=== PATIENT | female | born 2005 | race Caucasian/White ===

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

== ENCOUNTER → 2024-01-15 15:25 | Outpatient (BNVA) | payer MEDICAID, SELFPAY | PROVIDERS: PCP Family Medicine; Visit Provider Emergency Medicine | DX: J02.9 Acute pharyngitis, unspecified (principal) | CPT/HCPCS: 87880 ==

== ENCOUNTER 2024-01-24 20:26 | Emergency (ER) | payer MEDICAID, SELFPAY ==
[2024-01-24 20:29] VITALS: BP 111/79; PULSE 86; RESP 14; TEMP 36.7; O2SAT 99
--- NOTE | 2024-01-24 20:38 | W.ED.GENADLT ---
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 States pain sharp in nature is improved with rest she also wants to check to see if she is because she states she had multiple positive test at home. Associated symptoms: Reports chest pain; Deny dyspnea, headache(s), nausea, rash or vomiting Review of Systems Const: Denies: fever(s), chills, body aches or change in appetite ENMT: Denies: throat pain or dental pain Card: Reports: chest pain Resp: Denies: dyspnea GI: Denies: abdominal pain, nausea, vomiting or diarrhea : Denies: dysuria Musc: Denies: neck pain or back pain Skin/Breast: Denies: rash Neuro: Denies: headache(s) PFSH ED PFSH: Medical History No pertinent past medical history Denies diabetes, hypertension, seizures, DVT/PE PCP: Dr. Cruz ADD (attention deficit disorder) Diagnosed at the age of 4[address] Cruz and is on medication---does not have a therapist. Asthma Diagnosed in fifth grade and is exercise-induced. She uses her albuterol inhaler once a day Surgical History Hx of foot surgery Right foot surgery x2 screws removed-- 05/02/2022 L foot surgery x2 History of surgical removal of ganglion cyst From left wrist performed when she was in the 5th grade History of bunionectomy of left great toe Performed in 2018 History of tonsillectomy At the age of 8 History of myringotomy As a child Family History Grandmother Diabetes paternal Grandfather Diabetes paternal Family/Other Breast cancer maternal great aunt, age at diagnosis unknown Mother Diabetes Denies family history of Colon cancer Ovarian cancer Heart disease Hyperlipidemia Hypertension Uterine cancer Thyroid disease Stroke Female Reproductive History: Date of last menstrual period: 12/24/23 Physical Exam Const: COMMON NORMALS: no acute distress, patient oriented x3 and healthy appearing HENMT: COMMON NORMALS: normocephalic and atraumatic HEAD & SCALP: normocephalic and atraumatic Neck/C-Spine: COMMON NORMALS: full ROM and supple Chest: COMMONS NORMALS: normal inspection of the chest OTHER: point tender over right chest wall Resp: COMMON NORMALS: normal respiratory effort, No retractions and No use of accessory muscles Cardio: COMMON NORMALS: regular rate, regular rhythm and No murmurs present (Cardio) RATE: regular rate RHYTHM: regular rhythm GI: COMMON NORMALS: Normal to inspection, nondistended, normoactive bowel sounds present, Soft to palpation, non-tender and no masses PALPATION: Yes Soft to palpation Extremity: COMMON NORMALS: normal to inspection and full ROM Neuro: COMMON NORMALS: patient oriented x3, moves all extremities and no focal motor deficits Psych: COMMON NORMALS: mental status grossly normal, Normal thought process present and cooperative THOUGHT PROCESS: Normal thought process present Skin: COMMON NORMALS: no rashes or lesions noted and no wounds GENERAL SKIN EXAM: no rashes or lesions noted Course Vital Signs: Vital signs: Vital Signs Temperature 98.1 F 01/24/24 20:29 Pulse Rate 84 01/24/24 21:33 Respiratory Rate 14 01/24/24 20:29 Blood Pressure 122/70 01/24/24 21:33 Pulse Oximetry 99 01/24/24 21:33 Oxygen Delivery Me thod Room Air 01/24/24 20:29 MDM - General Adult Medical Decision Making Patient presents with right-sided chest pain likely chest wall pain she is point tender on exam her test is positive here she refused chest x-ray her lungs sound clear and she is point tender is likely a muscle strain she is take Tylenol and rest. Lab Data I reviewed the patient's lab results. 01/24/24 20:35 01/24/24 20:35 Laboratory Results WBC 8.08 10^3/uL (4.5-13.0) 01/24/24 20:35 RBC 4.38 10^6/uL (3.85-5.65) 01/24/24 20:35 Hgb 13.70 g/dL (12.4-14.8) 01/24/24 20:35 Hct 40.6 % (36-47) 01/24/24 20:35 MCV 92.7 fl (85-98) 01/24/24 20:35 MCH 31.3 pg (27-33) 01/24/24 20:35 MCHC 33.7 g/dL (30-55) 01/24/24 20:35 RDW 12.6 % (12.1-15.1) 01/24/24 20:35 Plt Count 205 10^3/cmm (157-399) 01/24/24 20:35 MPV 10.7 fL (7.4-10.4) H 01/24/24 20:35 Neut % (Auto) 65.6 % 01/24/24 20:35 Lymph % (Auto) 24.0 % 01/24/24 20:35 [place] % (Auto) 8.8 % 01/24/24 20:35 Eos % (Auto) 0.9 % 01/24/24 20:35 Baso % (Auto) 0.5 % 01/24/24 20:35 Neut # (Auto) 5.30 10^3/uL (1.8-8.0) 01/24/24 20:35 Lymph # (Auto) 1.9 10^3/uL (1.5-6.5) 01/24/24 20:35 [place] # (Auto) 0.7 10^3/uL (0.2-0.9) 01/24/24 20:35 Eos # (Auto) 0.1 10^3/uL (0.0-0.8) 01/24/24 20:35 Baso # (Auto) 0.0 10^3/uL (0.0-0.1) 01/24/24 20:35 Nucleated RBC % (auto) 0 % 01/24/24: Nucleated RBCs # 0.0 /100WBC 01/24/24 20:35 Sodium 136 mmol/L (136-145) 01/24/24 20:35 Potassium 4.3 mmol/L (3.5-5.1) 01/24/24 20:35 Chloride 103 mmol/L (98-107) 01/24/24 20:35 Carbon Dioxide 24 mmol/L (22-29) 01/24/24 20:35 Anion Gap 13.3 (5-19) 01/24/24 20:35 Creatinine 0.6 mg/dL (0.5-0.9) 01/24/24 20:35 GFR Calculation 128.8 mL/min (90-130) 01/24/24 20:35 Glucose 89 mg/dL (65-115) 01/24/24 20:35 Calcium 9.0 mg/dL (8.5-10.5) 01/24/24 20:35 Total Bilirubin 0.5 mg/dL (0.15-1.2) 01/24/24 20:35 AST 20 U/L (0-32) 01/24/24 20:35 ALT 23 U/L (0-33) 01/24/24 20:35 Alkaline Phosphatase 74 U/L (35-105) 01/24/24 20:35 Total Protein 7.1 g/dL (6.6-8.7) 01/24/24 20:35 Albumin 4.4 g/dL (3.5-5.2) 01/24/24 20:35 Globulin 2.7 g/dL (1.3-4.6) 01/24/24 20:35 Lipase 24 U/L (13-60) 01/24/24 20:35 Ser , Semi-Qnt 1146.00 mIU/mL 01/24/24 20:35 Urine Color Colorless (Yellow) 01/24/24 21:00 Urine Appearance Clear (CLEAR) 01/24/24 21:00 Urine pH 7 (5-7) 01/24/24 21:00 Ur Specific [place] 1.010 (1.005-1.030) 01/24/24 21:00 Urine Protein Neg (Negative) 01/24/24 21:00 Urine Glucose (UA) Norm (Normal) 01/24/24 21:00 Urine Ketones Negative (Negative) 01/24/24 21:00 Urine Blood Neg (Negative) 01/24/24 21:00 Urine Nitrate Negative (Negative) 01/24/24 21:00 Urine Bilirubin Neg (Negative) 01/24/24 21:00 Urine Urobilinogen Neg mg/dL (Negative) 01/24/24 21:00 Ur Leukocyte Esterase Negative (Negative) 01/24/24 21:00 No radiology studies performed this visit Discharge Plan Discharge Patient Disposition: Home Clinical Impression: Chest wall pain, Condition: Stable Prescriptions: No Action valacyclovir 500 mg tablet 500 mg PO DAILY levonorgestrel-ethinyl estrad [Vienva] 0.1-20 mg-mcg tablet 1 tab PO DAILY Qty: 84 3RF amoxicillin 500 mg capsule 1,000 mg PO BID 10 Days Qty: 40 0RF ibuprofen 800 mg tablet 800 mg PO Q8H PRN (Reason: pain) Qty: 30 0RF acetaminophen [Tylenol Extra Strength] 500 mg Tablet 1,000 mg PO Q4H PRN (Reason: Pain) Discharge Orders: Discharge ED (Routine); Ordered 01/24/24 Ordered By: Paulie Gonzalez Referrals: Severino Cruz MD [Primary Care Provider] - 1-3 days Discharge Diet: Advance as tolerated Discharge Activity: Resume usual activity Patient Instructions: (ED), Chest Wall Pain (ED) Coding Level of Care Code ED Corporate Logistics Manager for Tyler Sarabia
[2024-01-24 20:42] LABS: Basophils % 0.5 %; Eosinophils # 0.1 10^3/uL (0.0-0.8); Eosinophils % 0.9 %; Hematocrit 40.6 % (36-47); Lymphocytes # 1.9 10^3/uL (1.5-6.5); Mean Corpuscular HGB Conc 33.7 g/dL (30-55); Mean Corpuscular Hemoglobin 31.3 pg (27-33); Mean Corpuscular Volume 92.7 fl (85-98); Mean Platelet Volume 10.7 fL (7.4-10.4); Monocytes # 0.7 10^3/uL (0.2-0.9); Monocytes % 8.8 %; Neutrophils % 65.6 %; Nucleated Red Blood Cells % 0 %; Platelet Count 205 10^3/cmm (157-399); Red Blood Count 4.38 10^6/uL (3.85-5.65); Red Cell Distribution Width 12.6 % (12.1-15.1); White Blood Count 8.08 10^3/uL (4.5-13.0)
[2024-01-24 20:58] LABS: Alanine Aminotransferase 23 U/L (0-33); Albumin Level 4.4 g/dL (3.5-5.2); Alkaline Phosphatase 74 U/L (35-105); Anion Gap 13.3 (5-19); Aspartate Amino Transferase 20 U/L (0-32); Carbon Dioxide 24 mmol/L (22-29); Chloride 103 mmol/L (98-107); Creatinine Clr Calc Pharmacy 124.5275; Globulin 2.7 g/dL (1.3-4.6); Glomerular Filtration Rate 128.8 mL/min (90-130); Glucose 89 mg/dL (65-115); Lipase 24 U/L (13-60); Potassium 4.3 mmol/L (3.5-5.1); Sodium 136 mmol/L (136-145); Total Bilirubin 0.5 mg/dL (0.15-1.2); Total Protein 7.1 g/dL (6.6-8.7)
[2024-01-24 21:04] LABS: Add Urine Microscopic? NO; Charge for UA Resulting for Rev
[2024-01-24 21:14] LABS: Bilirubin Urine Neg (Negative); Blood Urine Neg (Negative); Glucose Urine UA Norm (Normal); Ketones Urine Negative (Negative); Leukocyte Esterase Urine Negative (Negative); Nitrate Urine Negative (Negative); Protein Urine Neg (Negative); Urine Appearance Clear (CLEAR); Urine Color Colorless (Yellow); Urobilinogen Urine Neg (Negative); pH Urine 7 (5-7)
[2024-01-24 21:33] VITALS: BP 122/70; PULSE 84; O2SAT 99
[2024-01-24 21:44] LABS: Blood Urea Nitrogen 13 mg/dL (6-20); Osmolality Calculated 282 mOsm/kg (285-295)
== END 2024-01-24 21:34 | disposition home or self-care (01) ==
PROVIDERS: Emergency Provider Emergency Medicine; PCP Family Medicine
DX: O26.899 Other specified pregnancy related conditions, unspecified trimester (principal); R07.89 Other chest pain; Z3A.00 Weeks of gestation of pregnancy not specified
CPT/HCPCS: 36415; 80053; 81003; 83690; 84702; 85025; 99283

== ENCOUNTER 2024-01-25 13:07 | Emergency (ER) | payer MEDICAID, SELFPAY ==
[2024-01-25 13:24] VITALS: BP 95/68; PULSE 85; RESP 18; TEMP 36.7; O2SAT 98; BMI 20.3
--- NOTE | 2024-01-25 13:42 | W.ED.BACK ---
HPI - Back Pain/Injury General: Chief Complaint: Back Pain/Injury Stated Complaint: back pain, abd pain, 4-5 weeks Time Seen by Provider: 01/25/24 13:40 History of Present Illness: 18-year-old female comes in today for complaints of right flank pain radiating to the right inguinal area. Patient reports difficulty with maintaining comfort. Patient reports nausea without vomiting. Patient denies any diarrhea or constipation. Patient is 4 to 5 weeks . 1 para 0. Patient denies any fever. Patient is use Tylenol for pain. This is patient's second visit in the last 24-48 hours. CBC and CMP were unremarkable yesterday. hCG showed 1100+. Urinalysis was normal. Patient has a medical history of asthma and ADD. Patient takes no routine medications. Last menstrual cycle started on December 22. Review of Systems General: Reports: 10 or more systems reviewed and unremarkable except in HPI and below Musc: Reports: back pain PFSH ED PFSH: Medical History No pertinent past medical history Denies diabetes, hypertension, seizures, DVT/PE PCP: Dr. Cruz ADD (attention deficit disorder) Diagnosed at the age of 4[address] Cruz and is on medication---does not have a therapist. Asthma Diagnosed in fifth grade and is exercise-induced. She uses her albuterol inhaler once a day Surgical History Hx of foot surgery Right foot surgery x2 screws removed-- 05/02/2022 L foot surgery x2 History of surgical removal of ganglion cyst From left wrist performed when she was in the 5th grade History of bunionectomy of left great toe Performed in 2018 History of tonsillectomy At the age of 8 History of myringotomy As a child Family History Grandmother Diabetes paternal Grandfather Diabetes paternal Family/Other Breast cancer maternal great aunt, age at diagnosis unknown Mother Diabetes Denies family history of Colon cancer Ovarian cancer Heart disease Hyperlipidemia Hypertension Uterine cancer Thyroid disease Stroke Physical Exam Const: COMMON NORMALS: alert HENMT: COMMON NORMALS: normocephalic HEAD & SCALP: normocephalic Neck/C-Spine: COMMON NORMALS: full ROM Chest: COMMONS NORMALS: normal inspection of the chest Resp: COMMON NORMALS: normal respiratory effort and clear to auscultation bilaterally AUSCULTATION: clear to auscultation bilaterally Cardio: COMMON NORMALS: regular rate and regular rhythm RATE: regular rate RHYTHM: regular rhythm GI: COMMON NORMALS: Soft to palpation PALPATION: Yes Soft to palpation and Yes Tenderness to palpation present (GI) (Right lower quadrant.) Back/Pelvis: LUMBAR SPINE/LOWER BACK: No lumbar spinal tenderness and Yes paraspinal muscle tenderness Extremity: COMMON NORMALS: normal to inspection Neuro: SENSORIUM/ORIENTATION: Yes alert Skin: COMMON NORMALS: turgor normal GENERAL SKIN EXAM: turgor normal Course Vital Signs: Vital signs: Vital Signs Temperature 98.0 F 01/25/24 13:24 Pulse Rate 85 01/25/24 13:24 Respiratory Rate 18 01/25/24 13:24 Blood Pressure 95/68 01/25/24 13:24 Pulse Oximetry 98 01/25/24 13:24 Oxygen Delivery Me thod Room Air 01/25/24 13:24 MDM - Back Pain/Injury Medical Decision Making 18-year-old female comes in today for complaints of right flank pain radiating to the right inguinal area. Patient appears nontoxic. Respirations are even lungs are clear to auscultation. Abdomen soft. Patient has muscle tenderness in the right paraspinous lumbar area. Patient moves all extremities well. Vital signs are normal. Differential diagnosis includes UTI, ovarian cyst, ectopic , muscle strain. hCG was 1499. Pelvic ultrasound noted a possible corpus luteum in the uterus although was not clearly defined and recommended repeat exam in 2 weeks to rule out ectopic if concern was present. Ultrasound of the abdomen noted no renal calculi or gallbladder disease. Appendix was not visualized or stated on the exam. 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 Patient and family both reported understanding. At this time I believe patient probably has some muscle drain in her right back. Patient states understanding and care plan with Tylenol, muscle rub, and ice and heat. Labs Laboratory Results Ser , Semi-Qnt 1499.00 mIU/mL 01/25/24 13:47 All radiology interpretation(s) finalized by discharge Discharge Plan Discharge Patient Disposition: Home Clinical Impression: Lumbar strain Qualifiers: Encounter type: initial encounter Qualified Code(s): S39.012A - Strain of muscle, fascia and tendon of lower back, initial encounter Condition: Stable Prescriptions: No Action valacyclovir 500 mg tablet 500 mg PO DAILY acetaminophen [Tylenol Extra Strength] 500 mg Tablet 1,000 mg PO Q4H PRN (Reason: Pain) Discharge Orders: Discharge ED (Routine); Ordered 01/25/24 Ordered By: Ivan Zepeda Referrals: Severino Cruz MD [Primary Care Provider] - Discharge Diet: Usual diet Discharge Activity: Increase activity as tolerated Patient Instructions: Muscle Strain (ED) Activity Restrictions/Additional Instructions: Drink plenty of water and fluids. Use acetaminophen to help with pain. Use ice and heat otherwise for pain. You may also use a mentholated muscle rub for further pain relief. Follow-up with primary care. Return to ED for worsening symptoms such as high fever, vaginal bleeding more than 1 pad an hour, or new concerns. Coding Level of Care Code ED Director Learning for Tyler Sarabia
--- NOTE | 2024-01-25 13:56 | US_ITS ---
WS: [id number] Complete ABDOMINAL ULTRASOUND HISTORY: right side abd pain COMPARISON: None available. Liver: 12.3 cm in length. Normal size liver and echogenicity. No bile duct dilatation or mass. Portal Vein: Normal hepatopetal flow with monophasic waveform. Gallbladder: Normally distended gallbladder with no stones or wall thickening. CBD: 0.3 cm Pancreas: Normal size and echogenicity. Right kidney: 10.1 cm x 4.7 x 4.9 cm. Cortex:0.9 cm. Normal size and echogenicity. No hydronephrosis or mass. Left kidney: 9.3 cm x 6.2 cm x 4.6 cm. Cortex: 1.2 cm. Normal size and echogenicity. No hydronephrosis or mass. Spleen: 8.7 cm. Normal size and echogenicity. Aorta and IVC: Unremarkable abdominal aorta and IVC. Impression: Normal complete abdomen ultrasound.
--- NOTE | 2024-01-25 13:56 | US_ITS ---
WS: [id number] EARLY OBSTETRICAL ULTRASOUND (<14 WEEKS). HISTORY: right inguinal pain, early COMPARISON: None available. Normal size anteverted uterus. No fibroid or mass identified. Seen only on transvaginal imaging is a tiny cyst within the central endometrium which potentially could represent a very early intrauterine gestation. Mean sac diameter of 0.2 cm corresponds to a possible gestational age of 4 weeks and 6 day s. There is no intracystic content. There is mild thickening of the adjacent endometrium. Thick walled cyst LEFT ovary may be a corpus luteum of . Corpus luteal cyst measures 2.4 x 2 .8 x 3.0 cm. There is a thick wall surrounding the cyst. The adjacent ovary appears normal. RIGHT ova ry is normal. Otherwise the adnexa are negative. There is a small amount of free fluid in the cul-de- sac. IMPRESSION: 1. Possible early intrauterine gestational sac. There is a tiny cystic collection within the endomet rial canal. Mean sac diameter corresponds to a gestation of 4 weeks and 6 days. 2. Cannot confirm intrauterine gestation therefore ectopic is not excluded. Recommend foll ow-up with serial beta-hCGs and ultrasound follow-up in 2 weeks. 3. Corpus luteum cyst LEFT ovary.
[2024-01-25 14:49] LABS: Add Urine Microscopic? NO; Charge for UA Resulting for Rev
[2024-01-25 15:21] LABS: Bilirubin Urine Neg (Negative); Blood Urine Neg (Negative); Glucose Urine UA Norm (Normal); Ketones Urine Negative (Negative); Leukocyte Esterase Urine Negative (Negative); Nitrate Urine Negative (Negative); Protein Urine Neg (Negative); Specific Gravity, Urine 1.005 (1.005-1.030); Urine Appearance Clear (CLEAR); Urine Color Light yellow (Yellow); Urobilinogen Urine Neg (Negative); pH Urine 7 (5-7)
== END 2024-01-25 15:34 | disposition home or self-care (01) ==
PROVIDERS: Emergency Medicine; Emergency Provider Nurse Practitioner Family; PCP Family Medicine
DX: O9A.211 Injury, poisoning and certain other consequences of external causes complicating pregnancy, first trimester (principal); S39.012A Strain of muscle, fascia and tendon of lower back, initial encounter; Z3A.01 Less than 8 weeks gestation of pregnancy; X58.XXXA Exposure to other specified factors, initial encounter
CPT/HCPCS: 36415; 76700; 76801; 81003; 84702; 99284

== ENCOUNTER 2024-02-14 09:42 | Emergency (ER) | payer MEDICAID, SELFPAY ==
[2024-02-14 09:46] VITALS: BP 101/67; PULSE 92; RESP 20; TEMP 36.7; O2SAT 90
[2024-02-14 11:19] LABS: Basophils % 0.3 %; Hematocrit 41.5 % (36-47); Lymphocytes # 0.3 10^3/uL (1.5-6.5); Lymphocytes % 2.8 %; Mean Corpuscular HGB Conc 33.5 g/dL (30-55); Mean Corpuscular Hemoglobin 31.3 pg (27-33); Mean Corpuscular Volume 93.5 fl (85-98); Mean Platelet Volume 10.7 fL (7.4-10.4); Monocytes # 0.7 10^3/uL (0.2-0.9); Neutrophils # 10.33 10^3/uL (1.8-8.0); Neutrophils % 90.5 %; Nucleated Red Blood Cells % 0 %; Platelet Count 190 10^3/cmm (157-399); Red Blood Count 4.44 10^6/uL (3.85-5.65); Red Cell Distribution Width 13.3 % (12.1-15.1); White Blood Count 11.41 10^3/uL (4.5-13.0)
[2024-02-14 11:46] LABS: Alanine Aminotransferase 41 U/L (0-33); Albumin Level 4.1 g/dL (3.5-5.2); Alkaline Phosphatase 67 U/L (35-105); Anion Gap 13.1 (5-19); Aspartate Amino Transferase 26 U/L (0-32); Blood Urea Nitrogen 11 mg/dL (6-20); Calcium 8.6 mg/dL (8.5-10.5); Carbon Dioxide 22 mmol/L (22-29); Chloride 101 mmol/L (98-107); Creatinine Clr Calc Pharmacy 154.0979; Globulin 2.7 g/dL (1.3-4.6); Glomerular Filtration Rate 158.9 mL/min (90-130); Glucose 95 mg/dL (65-115); Lipase 19 U/L (13-60); Osmolality Calculated 273 mOsm/kg (285-295); Potassium 4.1 mmol/L (3.5-5.1); Sodium 132 mmol/L (136-145); Total Bilirubin 0.7 mg/dL (0.15-1.2); Total Protein 6.8 g/dL (6.6-8.7)
--- NOTE | 2024-02-14 11:58 | US_ITS ---
WS: [id number] Transvaginal obstetrical ultrasound. HISTORY: , pain. COMPARISON: 01/25/2024. Uterus is retroverted. There is a single intrauterine gestational sac containing a crown-rump length. Normal appearance to the sac which has undergone appropriate growth since 01/25/2024. [place]-rump justino th of 1.2 cm corresponds to a gestation of 7 weeks and 3 days. There is a yolk sac present. Small adj acent subchorionic hemorrhage measures 0.8 x 1.0 x 1.3 cm. Cardiac activity 157 bpm. No free fluid in the cul-de-sac. Corpus luteal cyst LEFT ovary 1.9 x 1.3 x 1.7 cm. Small follicles in the RIGHT ovary. US/US OB transvaginal [id number] IMPRESSION: 1. Single intrauterine gestation 7 weeks 3 days with an EDC of 09/29/2024. 2. Very small subchorionic hemorrhage. 3. No complications. 4. Normal cardiac activity.
--- NOTE | 2024-02-14 14:34 | ED_ITS ---
HPI - Nausea/Vomiting/Diarrhea 2 General: Chief complaint: Nausea/Vomiting/Diarrhea Stated complaint: vomiting Time Seen by Provider: 02/14/24 09:44 Source: patient Mode of arrival: ambulatory Limitations: no limitations History of Present Illness: Patient is a 18-year-old female who is currently here with complaints of nausea and vomiting. She states she has had nausea since finding out she was but states she woke up this morning and has not been able to hold anything down all day. She has had a few episodes of diarrhea starting today as well. No known poor food exposures. No sick contacts. No fevers. Reports some mild intermittent cramping. She states she had an ultrasound performed a few weeks ago and they had recommended at that time for repeat ultrasound imaging and repeat hCG. She states her first OB appointment is with Dr. Bella scheduled for 02/21. She is not having any vaginal bleeding or pelvic pain at this time. MD elicited complaint: nausea and vomiting Pertinent past history: other () Onset (ago): hour(s) Associated nausea: Yes Associated abdominal pain: Yes Location of pain: Diffuse Radiation: diffuse Pain consistency: intermittent Severity: mild Quality: cramping Exacerbating factors: eating Relieving factors: none Associated symtoms: Reports nausea; Denies chest pain, dizziness, dysuria, fatigue, headache(s) or malaise Review of Systems 2 Const: Denies: fever(s), chills, body aches, fatigue or malaise Card: Denies: chest pain Resp: Denies: dyspnea GI: Reports: abdominal pain (occasional), nausea, vomiting and diarrhea; Denies: hematemesis : Denies: flank pain, difficulty voiding, dysuria, urinary frequency, urinary urgency, vaginal bleeding, vaginal discharge or pelvic pain Musc: Denies: back pain Skin/Breast: Denies: rash Neuro: Denies: headache(s) or dizziness PFSH ED 2 PFSH: Medical History No pertinent past medical history Denies diabetes, hypertension, seizures, DVT/PE PCP: Dr. Cruz ADD (attention deficit disorder) Diagnosed at the age of 4[address] Cruz and is on medication---does not have a therapist. Asthma Diagnosed in fifth grade and is exercise-induced. She uses her albuterol inhaler once a day Surgical History Hx of foot surgery Right foot surgery x2 screws removed-- 05/02/2022 L foot surgery x2 History of surgical removal of ganglion cyst From left wrist performed when she was in the 5th grade History of bunionectomy of left great toe Performed in 2018 History of tonsillectomy At the age of 8 History of myringotomy As a child Family History Grandmother Diabetes paternal Grandfather Diabetes paternal Family/Other Breast cancer maternal great aunt, age at diagnosis unknown Mother Diabetes Denies family history of Colon cancer Ovarian cancer Heart disease Hyperlipidemia Hypertension Uterine cancer Thyroid disease Stroke Physical Exam 2 Const: COMMON NORMALS: no acute distress, average body habitus, patient oriented x3, no limitations, healthy appearing, alert and well nourished G ENERAL APPEARANCE: cooperative ORIENTATION/CONSCIOUSNESS: Yes awake, Yes oriented to person, Yes oriented to place and Yes oriented to time HENMT: COMMON NORMALS: normocephalic and atraumatic HEAD & SCALP: normal to inspection, normocephalic and atraumatic Eye: COMMON NORMALS: no scleral icterus Neck/C-Spine: COMMON NORMALS: full ROM, no lymphadenopathy, supple and no meningeal signs Chest: COMMONS NORMALS: normal inspection of the chest Resp: COMMON NORMALS: normal respiratory effort and clear to auscultation bilaterally AUSCULTATION: clear to auscultation bilaterally Cardio: COMMON NORMALS: regular rate and regular rhythm RATE: regular rate RHYTHM: regular rhythm GI: COMMON NORMALS: Normal to inspection, nondistended, normoactive bowel sounds present, Soft to palpation, non-tender, No hepatosplenomegaly present and no masses PALPATION: Yes Soft to palpation and Yes No hepatosplenomegaly present : COMMON NORMALS: Yes no CVA tenderness BLADDER/KIDNEY EXAM: Yes no CVA tenderness Back/Pelvis: COMMON NORMALS: no CVA tenderness Neuro: COMMON NORMALS: patient oriented x3 SENSORIUM/ORIENTATION: Yes alert, Yes oriented to person, Yes oriented to place and Yes oriented to time MENINGEAL SIGNS: Yes no meningeal signs Skin: COMMON NORMALS: no rashes or lesions noted GENERAL SKIN EXAM: no rashes or lesions noted Course 2 Vital Signs: Vital signs: Vital Signs Temperature 98.0 F 02/14/24 09:46 Pulse Rate 84 02/14/24 16:00 Respiratory Rate 17 02/14/24 14:44 Blood Pressure 102/58 02/14/24 16:00 Pulse Oximetry 99 02/14/24 16:00 Oxygen Delivery Me thod Room Air 02/14/24 16:00 MDM - Nausea/Vomiting/Diarrhea Medical Decision Making Patient here for nausea and vomiting starting this morning. She has had nausea throughout her . Vital signs are stable. Her blood work overall is unremarkable. OB ultrasound showing a single intrauterine gestation. She was given IV fluids and antiemetics here and was able to complete an oral challenge. She feels comfortable going home at this time. She has OB follow-up on 02/21. Return ED precautions given. Lab Data 02/14/24 11:11 02/14/24 11:11 Radiology Impressions Transvaginal US 02/14/24 11:58 IMPRESSION: 1. Single intrauterine gestation 7 weeks 3 days with an EDC of 09/29/2024. 2. Very small subchorionic hemorrhage. 3. No complications. 4. Normal cardiac activity. Laboratory Results WBC 11.41 10^3/uL (4.5-13.0) 02/14/24 11:11 RBC 4.44 10^6/uL (3.85-5.65) 02/14/24 11:11 Hgb 13.90 g/dL (12.4-14.8) 02/14/24 11:11 Hct 41.5 % (36-47) 02/14/24 11:11 MCV 93.5 fl (85-98) 02/14/24 11:11 MCH 31.3 pg (27-33) 02/14/24 11:11 MCHC 33.5 g/dL (30-55) 02/14/24 11:11 RDW 13.3 % (12.1-15.1) 02/14/24 11:11 Plt Count 190 10^3/cmm (157-399) 02/14/24 11:11 MPV 10.7 fL (7.4-10.4) H 02/14/24 11:11 Neut % (Auto) 90.5 % 02/14/24 11:11 Lymph % (Auto) 2.8 % 02/14/24 11:11 [place] % (Auto) 6.0 % 02/14/24 11:11 Eos % (Auto) 0.0 % 02/14/24 11:11 Baso % (Auto) 0.3 % 02/14/24 11:11 Neut # (Auto) 10.33 10^3/uL (1.8-8.0) H 02/14/24 11:11 Lymph # (Auto) 0.3 10^3/uL (1.5-6.5) L 02/14/24 11:11 [place] # (Auto) 0.7 10^3/uL (0.2-0.9) 02/14/24 11:11 Eos # (Auto) 0.0 10^3/uL (0.0-0.8) 02/14/24 11:11 Baso # (Auto) 0.0 10^3/uL (0.0-0.1) 02/14/24 11:11 Nucleated RBC % (auto) 0 % 02/14/24 11:11 Nucleated RBCs # 0.0 /100WBC 02/14/24 11:11 Sodium 132 mmol/L (136-145) L 02/14/24 11:11 Potassium 4.1 mmol/L (3.5-5.1) 02/14/24 11:11 Chloride 101 mmol/L (98-107) 02/14/24 11:11 Carbon Dioxide 22 mmol/L (22-29) 02/14/24 11:11 Anion Gap 13.1 (5-19) 02/14/24 11:11 BUN 11 mg/dL (6-20) 02/14/24 11:11 Creatinine 0.5 mg/dL (0.5-0.9) 02/14/24 11:11 GFR Calculation 158.9 mL/min (90-130) H 02/14/24 11:11 Glucose 95 mg/dL (65-115) 02/14/24 11:11 Calculated Osmolality 273 mOsm/kg (285-295) L 02/14/24 11:11 Calcium 8.6 mg/dL (8.5-10.5) 02/14/24 11:11 Total Bilirubin 0.7 mg/dL (0.15-1.2) 02/14/24 11:11 AST 26 U/L (0-32) 02/14/24 11:11 ALT 41 U/L (0-33) H 02/14/24 11:11 Alkaline Phosphatase 67 U/L (35-105) 02/14/24 11:11 Total Protein 6.8 g/dL (6.6-8.7) 02/14/24 11:11 Albumin 4.1 g/dL (3.5-5.2) 02/14/24 11:11 Globulin 2.7 g/dL (1.3-4.6) 02/14/24 11:11 Lipase 19 U/L (13-60) 02/14/24 11:11 Ser , Semi-Qnt 328780.00 mIU/mL 02/14/24 11:11 No radiology studies performed this visit Discharge Plan Discharge Patient Disposition: Home Clinical Impression: Nausea and vomiting during Condition: Stable Prescriptions: New metoclopramide HCl 10 mg tablet 10 mg PO Q6H PRN (Reason: nausea and vomiting) Qty: 14 0RF No Action valacyclovir 500 mg tablet 500 mg PO DAILY acetaminophen [Tylenol Extra Strength] 500 mg Tablet 1,000 mg PO Q4H PRN (Reason: Pain) Discharge Orders: Discharge ED (Routine); Ordered 02/14/24 Ordered By: Gisella Park Referrals: Severino Cruz MD [Primary Care Provider] - Stand Alone Forms: Work/School Release Coding Level of Care Code ED Senior Risk Manager for Tyler Sarabia
[2024-02-14 14:44] VITALS: BP 94/42; PULSE 87; RESP 17; O2SAT 99
[2024-02-14] MEDS: sodium chloride 0.9% 1,000 ML 999 ML IV (14:46)
--- NOTE | 2024-02-14 14:50 | PC.NURSE ---
THIS NURSE ASKED PT FOR A URINE SAMPLE PT STATED SHE CAN'T GO RIGHT NOW. PT REQUESTED FLUIDS TO RUN FOR A LITTLE BIT AND THEN SHE WILL TRY.
[2024-02-14] MEDS: metoclopramide 5 mg/mL SDV 2 mL 10 MG IVP (15:16)
[2024-02-14 15:53] VITALS: BP 92/62; O2SAT 98
[2024-02-14 16:00] VITALS: BP 102/58; PULSE 84; O2SAT 99
[2024-02-14 16:25] LABS: Urine Appearance SL Hazy (CLEAR); Urine Color Yellow (Yellow); pH Urine 6 (5-7)
[2024-02-14 16:26] LABS: Add Urine Microscopic? YES; Bilirubin Urine Neg (Negative); Blood Urine Neg (Negative); Glucose Urine UA Norm (Normal); Ketones Urine 2+ (Negative); Leukocyte Esterase Urine Negative (Negative); Nitrate Urine Negative (Negative); Protein Urine Neg (Negative); Urobilinogen Urine Norm (Negative)
[2024-02-14 16:49] LABS: Add Urine Culture? No; Bacteria Urine TRACE /hpf; RBC Urine 0-4 /hpf (0-2); WBC Urine 0-4 /hpf (0-5)
== END 2024-02-14 16:33 | disposition home or self-care (01) ==
PROVIDERS: Emergency Provider Physician Assistant; PCP Family Medicine
DX: O21.9 Vomiting of pregnancy, unspecified (principal); Z3A.01 Less than 8 weeks gestation of pregnancy
CPT/HCPCS: 36415; 76817; 80053; 81001; 83690; 84702; 85025; 96361; 96374; 99285; J2765; J7030

== ENCOUNTER 2024-02-14 20:32 | Emergency (ER) | payer MEDICAID, SELFPAY ==
[2024-02-14 20:43] VITALS: BP 102/56; PULSE 106; RESP 16; TEMP 37.6; O2SAT 99; BMI 21.9
[2024-02-14 21:39] LABS: Basophils % 0.2 %; Eosinophils % 0.1 %; Hematocrit 37.3 % (36-47); Lymphocytes # 0.5 10^3/uL (1.5-6.5); Lymphocytes % 6.4 %; Mean Corpuscular HGB Conc 33.8 g/dL (30-55); Mean Corpuscular Hemoglobin 31.2 pg (27-33); Mean Corpuscular Volume 92.3 fl (85-98); Mean Platelet Volume 11.1 fL (7.4-10.4); Monocytes # 0.7 10^3/uL (0.2-0.9); Neutrophils # 7.21 10^3/uL (1.8-8.0); Neutrophils % 84.8 %; Nucleated Red Blood Cells % 0 %; Platelet Count 190 10^3/cmm (157-399); Red Blood Count 4.04 10^6/uL (3.85-5.65); Red Cell Distribution Width 13.3 % (12.1-15.1)
--- NOTE | 2024-02-14 21:59 | ED_ITS ---
Documented by User: [email or web address] Cummins 02/14/24 23:11 HPI - Nausea/Vomiting/Diarrhea 2 General: Chief complaint: Nausea/Vomiting/Diarrhea Stated complaint: fever, 7 weeks , vomiting Time Seen by Provider: 02/14/24 21:41 Source: patient Mode of arrival: ambulatory Limitations: no limitations History of Present Illness: Patient is a 18-year-old female who presents to the emergency department with nausea and vomiting and subjective fever. She was seen earlier in the day for the same symptoms, had a normal workup with ultrasound that showed single live intrauterine gestation, and was discharged with prescription for Reglan. She notes that she only took 1 dose of the Reglan and it made her feel more nauseous, and she has continued to throw up and now has ran a subjective fever. This prompted her to return to the ED. She is noting some diffuse cramping abdominal pain. She states she has not been able to keep anything down despite being able to eat crackers and drink some Sprite just prior to discharge from the ED earlier. She is 7 weeks by ultrasound, has an GUEST SERVICES OFFICER appointment scheduled for February 21. She also was having some diarrhea earlier in the day. MD elicited complaint: nausea, vomiting, diarrhea and abdominal pain Associated nausea: Yes Associated abdominal pain: Yes Location of pain: Diffuse Pain consistency: constant Severity: mild Quality: cramping Relieving factors: none Context: other () Associated symtoms: Reports nausea; Denies chest pain, diaphoresis, dizziness, dysuria, headache(s) or palpitations Treatment prior to arrival: other (Reglan) Review of Systems 2 General: Reports: 10 or more systems reviewed and unremarkable except in HPI and below Const: Reports: fever(s); Denies: chills, change in appetite, change in weight or diaphoresis ENMT: Denies: throat pain or hoarseness Card: Denies: chest pain, palpitations or lightheadedness Resp: Denies: dyspnea, productive cough or wheezing GI: Reports: abdominal pain, nausea, vomiting and diarrhea; Denies: hematemesis : Denies: flank pain, difficulty voiding, dysuria, urinary frequency or urinary urgency Musc: Denies: neck pain or back pain Skin/Breast: Denies: rash or new lesions Neuro: Denies: headache(s) or dizziness PFS ED 2 PFSH: Medical History No pertinent past medical history Denies diabetes, hypertension, seizures, DVT/PE PCP: Dr. Cruz ADD (attention deficit disorder) Diagnosed at the age of 4[address] Cruz and is on medication---does not have a therapist. Asthma Diagnosed in fifth grade and is exercise-induced. She uses her albuterol inhaler once a day Surgical History Hx of foot surgery Right foot surgery x2 screws removed-- 05/02/2022 L foot surgery x2 History of surgical removal of ganglion cyst From left wrist performed when she was in the 5th grade History of bunionectomy of left great toe Performed in 2018 History of tonsillectomy At the age of 8 History of myringotomy As a child Family History Grandmother Diabetes paternal Grandfather Diabetes paternal Family/Other Breast cancer maternal great aunt, age at diagnosis unknown Mother Diabetes Denies family history of Colon cancer Ovarian cancer Heart disease Hyperlipidemia Hypertension Uterine cancer Thyroid disease Stroke Female Reproductive History: Date of last menstrual period: 12/24/23 Physical Exam 2 Const: COMMON NORMALS: average body habitus, patient oriented x3, no limitations, healthy appearing, alert and well nourished GENERAL APPEARANCE: cooperative and anxious ORIENTATION/CONSCIOUSNESS: Yes awake HENMT: COMMON NORMALS: normocephalic, atraumatic, hearing grossly normal bilaterally, external ears normal, Normal external nose present, Normal nasal mucous membranes and turbinates present and moist oral mucous membranes HEAD & SCALP: normocephalic and atraumatic NOSE: Normal external nose present and Normal nasal mucous membranes and turbinates present EXTERNAL EAR: Yes external ears normal Eye: COMMON NORMALS: Equal, round and reactive pupils present, EOMs intact bilaterally, conjunctivae normal and normal visual bazan by confrontation C ONJUNCTIVA: Yes conjunctivae normal PUPIL: Yes Equal, round and reactive pupils present Neck/C-Spine: COMMON NORMALS: full ROM, supple, no meningeal signs and no JVD Resp: COMMON NORMALS: normal respiratory effort, No retractions, No use of accessory muscles and clear to auscultation bilaterally AUSCULTATION: clear to auscultation bilaterally, no crackles, no rales, no rhonchi and no wheezes Cardio: COMMON NORMALS: no JVD, regular rhythm, S1 normal heart sound present, S2 normal heart sound present, No gallops present (Cardio), No clicks present (Cardio), No murmurs present (Cardio), No rub (Cardio) and Peripheral pulses 2+ throughout RATE: tachycardic (Mildly) RHYTHM: regular rhythm HEART SOUNDS: S1 normal heart sound present and S2 normal heart sound present P ERIPHERAL PULSES: Peripheral pulses 2+ throughout GI: COMMON NORMALS: Normal to inspection, nondistended, normoactive bowel sounds present, Soft to palpation, No hepatosplenomegaly present and no masses AUSCULTATION: Yes normoactive bowel sounds PALPATION: Yes Soft to palpation, Yes Tenderness to palpation present (GI) (Mild diffuse), No Guarding due to palpation present (GI), No Rigid due to palpation and Yes No hepatosplenomegaly present RECTAL EXAM: deferred : COMMON NORMALS: Yes no CVA tenderness BLADDER/KIDNEY EXAM: Yes no CVA tenderness Back/Pelvis: COMMON NORMALS: no CVA tenderness Extremity: COMMON NORMALS: normal to inspection, full ROM and capillary refill normal Neuro: COMMON NORMALS: patient oriented x3, moves all extremities, no focal motor deficits and no sensory deficits noted SENSORIUM/ORIENTATION: Yes alert MENINGEAL SIGNS: Yes no meningeal signs Psych: COMMON NORMALS: mental status grossly normal, cooperative and speech normal SPEECH: Yes normal speech Skin: COMMON NORMALS: no rashes or lesions noted GENERAL SKIN EXAM: no rashes or lesions noted Course 2 Vital Signs: Vital signs: Vital Signs Temperature 99.6 F 02/14/24 22:06 Pulse Rate 84 02/15/24 00:11 Respiratory Rate 16 02/15/24 00:11 Blood Pressure 101/51 02/15/24 00:11 Pulse Oximetry 100 02/15/24 00:11 Oxygen Delivery Me thod Room Air 02/14/24 22:30 MDM - Nausea/Vomiting/Diarrhea Medical Decision Making Patient seen for the second time today for nausea and vomiting during . Initial visit she had single live intrauterine gestation on ultrasound as well as on remarkable lab workup. Was discharged with prescription for Reglan. She did note that this made her more sick and arrives due to some worsening abdominal cramping. Repeat lab evaluation stable from earlier labs. Urinalysis obtained borderline for urinary tract infection, will treat due to status. Also will switch patient's prescription to Zofran. Encouraged her to drink plenty of fluids. She does note that she feels better after the Zofran and fluids currently, and is ready for discharge home. Had thorough conversation in regards to reasons to return, and she will follow-up with [facility] SERVICES OFFICER next week as planned. Lab Data 02/14/24 21:17 02/14/24 21:17 Laboratory Results WBC 8.50 10^3/uL (4.5-13.0) 02/14/24 21:17 RBC 4.04 10^6/uL (3.85-5.65) 02/14/24 21:17 Hgb 12.60 g/dL (12.4-14.8) 02/14/24 21:17 Hct 37.3 % (36-47) 02/14/24 21:17 MCV 92.3 fl (85-98) 02/14/24 21:17 MCH 31.2 pg (27-33) 02/14/24 21:17 MCHC 33.8 g/dL (30-55) 02/14/24 21:17 RDW 13.3 % (12.1-15.1) 02/14/24 21:17 Plt Count 190 10^3/cmm (157-399) 02/14/24 21:17 MPV 11.1 fL (7.4-10.4) H 02/14/24 21:17 Neut % (Auto) 84.8 % 02/14/24 21:17 Lymph % (Auto) 6.4 % 02/14/24 21:17 Teller % (Auto) 8.0 % 02/14/24 21:17 Eos % (Auto) 0.1 % 02/14/24 21:17 Baso % (Auto) 0.2 % 02/14/24 21:17 Neut # (Auto) 7.21 10^3/uL (1.8-8.0) 02/14/24 21:17 Lymph # (Auto) 0.5 10^3/uL (1.5-6.5) L 02/14/24 21:17 Teller # (Auto) 0.7 10^3/uL (0.2-0.9) 02/14/24 21:17 Eos # (Auto) 0.0 10^3/uL (0.0-0.8) 02/14/24 21:17 Baso # (Auto) 0.0 10^3/uL (0.0-0.1) 02/14/24 21:17 Nucleated RBC % (auto) 0 % 02/14/24 21:17 Nucleated RBCs # 0.0 /100WBC 02/14/24 21:17 Sodium 133 mmol/L (136-145) L 02/14/24 21:17 Potassium 3.8 mmol/L (3.5-5.1) 02/14/24 21:17 Chloride 104 mmol/L (98-107) 02/14/24 21:17 Carbon Dioxide 19 mmol/L (22-29) L 02/14/24 21:17 Anion Gap 13.8 (5-19) 02/14/24 21:17 BUN 7 mg/dL (6-20) 02/14/24 21:17 Creatinine 0.5 mg/dL (0.5-0.9) 02/14/24 21:17 GFR Calculation 158.9 mL/min (90-130) H 02/14/24 21:17 Glucose 99 mg/dL (65-115) 02/14/24 21:17 Calculated Osmolality 274 mOsm/kg (285-295) L 02/14/24 21:17 Calcium 8.5 mg/dL (8.5-10.5) 02/14/24 21:17 Total Bilirubin 0.8 mg/dL (0.15-1.2) 02/14/24 21:17 AST 20 U/L (0-32) 02/14/24 21:17 ALT 34 U/L (0-33) H 02/14/24 21:17 Alkaline Phosphatase 65 U/L (35-105) 02/14/24 21:17 C-Reactive Protein 29.6 mg/L (0.0-4.9) H 02/14/24 21:17 Total Protein 6.2 g/dL (6.6-8.7) L 02/14/24 21:17 Albumin 3.7 g/dL (3.5-5.2) 02/14/24 21:17 Globulin 2.5 g/dL (1.3-4.6) 02/14/24 21:17 Lipase 22 U/L (13-60) 02/14/24 21:17 Urine Color Yellow (Yellow) 02/14/24 21:59 Urine Appearance Sl hazy (CLEAR) A 02/14/24 21:59 Urine pH 5 (5-7) 02/14/24 21:59 Ur Specific [place] 1.020 (1.005-1.030) 02/14/24 21:59 Urine Protein 1+ (Negative) H 02/14/24 21:59 Urine Glucose (UA) Norm (Normal) 02/14/24 21:59 Urine Ketones 1+ (Negative) H 02/14/24 21:59 Urine Blood Neg (Negative) 02/14/24 21:59 Urine Nitrate Negative (Negative) 02/14/24 21:59 Urine Bilirubin 1+ (Negative) H 02/14/24 21:59 Urine Urobilinogen Norm mg/dL (Negative) 02/14/24 21:59 Ur Leukocyte Esterase Trace (Negative) H 02/14/24 21:59 Urine RBC 0-4 /hpf (0-2) H 02/14/24 21:59 Urine WBC 10-15 /hpf (0-5) H 02/14/24 21:59 Ur Squamous Epith Cells 0-4 /hpf (0-5) H 02/14/24 21:59 Amorphous Sediment Not Reportable 02/14/24 21:59 Urine Bacteria Trace /hpf (NONE) 02/14/24 21:59 Urine Mucus 2+ /hpf 02/14/24 21:59 No radiology studies performed this visit Discharge Plan Discharge Patient Disposition: Home Clinical Impression: Nausea and vomiting during , UTI (urinary tract infection) in in first trimester Condition: Stable Prescriptions: New ondansetron HCl 4 mg tablet 4 mg PO Q8H Qty: 30 0RF cephalexin 500 mg capsule 500 mg PO BID 7 Days Qty: 14 0RF No Action valacyclovir 500 mg tablet 500 mg PO DAILY acetaminophen [Tylenol Extra Strength] 500 mg Tablet 1,000 mg PO Q4H PRN (Reason: Pain) metoclopramide HCl 10 mg tablet 10 mg PO Q6H PRN (Reason: nausea and vomiting) Qty: 14 0RF Discharge Orders: Discharge ED (Routine); Ordered 02/14/24 Ordered By: Mike Armas Referrals: Severino Cruz MD [Primary Care Provider] - Discharge Diet: Usual diet Discharge Activity: Increase activity as tolerated Patient Instructions: Nausea and Vomiting in (ED), (ED), Urinary Tract Infection in (ED) Activity Restrictions/Additional Instructions: Take Keflex as prescribed. Zofran for nausea as needed. Follow-up with [facility] SERVICES OFFICER next week as scheduled. Plenty of fluids. Monitor for any new or concerning symptoms you may have and return for reevaluation. Coding Level of Care Code ED Electric [employer] for [facility] Documented by User: Alfonso Echeverria DO 02/16/24 06:52 HPI - Nausea/Vomiting/Diarrhea 2 General: Chief complaint: Nausea/Vomiting/Diarrhea Stated complaint: fever, 7 weeks , vomiting Time Seen by Provider: 02/14/24 21:41 PFSH ED 2 PFSH: Medical History No pertinent past medical history Denies diabetes, hypertension, seizures, DVT/PE PCP: Dr. Cruz ADD (attention deficit disorder) Diagnosed at the age of 4[address] Cruz and is on medication---does not have a therapist. Asthma Diagnosed in fifth grade and is exercise-induced. She uses her albuterol inhaler once a day Surgical History Hx of foot surgery Right foot surgery x2 screws removed-- 05/02/2022 L foot surgery x2 History of surgical removal of ganglion cyst From left wrist performed when she was in the 5th grade History of bunionectomy of left great toe Performed in 2018 History of tonsillectomy At the age of 8 History of myringotomy As a child Family History Grandmother Diabetes paternal Grandfather Diabetes paternal Family/Other Breast cancer maternal great aunt, age at diagnosis unknown Mother Diabetes Denies family history of Colon cancer Ovarian cancer Heart disease Hyperlipidemia Hypertension Uterine cancer Thyroid disease Stroke Course 2 Vital Signs: Vital signs: Vital Signs Temperature 99.6 F 02/14/24 22:06 Pulse Rate 84 02/15/24 00:11 Respiratory Rate 16 02/15/24 00:11 Blood Pressure 101/51 02/15/24 00:11 Pulse Oximetry 100 02/15/24 00:11 Oxygen Delivery Me thod Room Air 02/14/24 22:30 MDM - Nausea/Vomiting/Diarrhea Medical Decision Making Patient seen for the second time today for nausea and vomiting during . Initial visit she had single live intrauterine gestation on ultrasound as well as on remarkable lab workup. Was discharged with prescription for Reglan. She did note that this made her more sick and arrives due to some worsening abdominal cramping. Repeat lab evaluation stable from earlier labs. Urinalysis obtained borderline for urinary tract infection, will treat due to status. Also will switch patient's prescription to Zofran. Encouraged her to drink plenty of fluids. She does note that she feels better after the Zofran and fluids currently, and is ready for discharge home. Had thorough conversation in regards to reasons to return, and she will follow-up with G[employer] SERVICES OFFICER next week as planned. Chart reviewed Lab Data 02/14/24 21:17 02/14/24 21:17 Laboratory Results WBC 8.50 10^3/uL (4.5-13.0) 02/14/24 21:17 RBC 4.04 10^6/uL (3.85-5.65) 02/14/24 21:17 Hgb 12.60 g/dL (12.4-14.8) 02/14/24 21:17 Hct 37.3 % (36-47) 02/14/24 21:17 MCV 92.3 fl (85-98) 02/14/24 21:17 MCH 31.2 pg (27-33) 02/14/24 21:17 MCHC 33.8 g/dL (30-55) 02/14/24 21:17 RDW 13.3 % (12.1-15.1) 02/14/24 21:17 Plt Count 190 10^3/cmm (157-399) 02/14/24 21:17 MPV 11.1 fL (7.4-10.4) H 02/14/24 21:17 Neut % (Auto) 84.8 % 02/14/24 21:17 Lymph % (Auto) 6.4 % 02/14/24 21:17 Teller % (Auto) 8.0 % 02/14/24 21:17 Eos % (Auto) 0.1 % 02/14/24 21:17 Baso % (Auto) 0.2 % 02/14/24 21:17 Neut # (Auto) 7.21 10^3/uL (1.8-8.0) 02/14/24 21:17 Lymph # (Auto) 0.5 10^3/uL (1.5-6.5) L 02/14/24 21:17 Teller # (Auto) 0.7 10^3/uL (0.2-0.9) 02/14/24 21:17 Eos # (Auto) 0.0 10^3/uL (0.0-0.8) 02/14/24 21:17 Baso # (Auto) 0.0 10^3/uL (0.0-0.1) 02/14/24 21:17 Nucleated RBC % (auto) 0 % 02/14/24 21:17 Nucleated RBCs # 0.0 /100WBC 02/14/24 21:17 Sodium 133 mmol/L (136-145) L 02/14/24 21:17 Potassium 3.8 mmol/L (3.5-5.1) 02/14/24 21:17 Chloride 104 mmol/L (98-107) 02/14/24 21:17 Carbon Dioxide 19 mmol/L (22-29) L 02/14/24 21:17 Anion Gap 13.8 (5-19) 02/14/24 21:17 BUN 7 mg/dL (6-20) 02/14/24 21:17 Creatinine 0.5 mg/dL (0.5-0.9) 02/14/24 21:17 GFR Calculation 158.9 mL/min (90-130) H 02/14/24 21:17 Glucose 99 mg/dL (65-115) 02/14/24 21:17 Calculated Osmolality 274 mOsm/kg (285-295) L 02/14/24 21:17 Calcium 8.5 mg/dL (8.5-10.5) 02/14/24 21:17 Total Bilirubin 0.8 mg/dL (0.15-1.2) 02/14/24 21:17 AST 20 U/L (0-32) 02/14/24 21:17 ALT 34 U/L (0-33) H 02/14/24 21:17 Alkaline Phosphatase 65 U/L (35-105) 02/14/24 21:17 C-Reactive Protein 29.6 mg/L (0.0-4.9) H 02/14/24 21:17 Total Protein 6.2 g/dL (6.6-8.7) L 02/14/24 21:17 Albumin 3.7 g/dL (3.5-5.2) 02/14/24 21:17 Globulin 2.5 g/dL (1.3-4.6) 02/14/24 21:17 Lipase 22 U/L (13-60) 02/14/24 21:17 Urine Color Yellow (Yellow) 02/14/24 21:59 Urine Appearance Sl hazy (CLEAR) A 02/14/24 21:59 Urine pH 5 (5-7) 02/14/24 21:59 Ur Specific [place] 1.020 (1.005-1.030) 02/14/24 21:59 Urine Protein 1+ (Negative) H 02/14/24 21:59 Urine Glucose (UA) Norm (Normal) 02/14/24 21:59 Urine Ketones 1+ (Negative) H 02/14/24 21:59 Urine Blood Neg (Negative) 02/14/24 21:59 Urine Nitrate Negative (Negative) 02/14/24 21:59 Urine Bilirubin 1+ (Negative) H 02/14/24 21:59 Urine Urobilinogen Norm mg/dL (Negative) 02/14/24 21:59 Ur Leukocyte Esterase Trace (Negative) H 02/14/24 21:59 Urine RBC 0-4 /hpf (0-2) H 02/14/24 21:59 Urine WBC 10-15 /hpf (0-5) H 02/14/24 21:59 Ur Squamous Epith Cells 0-4 /hpf (0-5) H 02/14/24 21:59 Amorphous Sediment Not Reportable 02/14/24 21:59 Urine Bacteria Trace /hpf (NONE) 02/14/24 21:59 Urine Mucus 2+ /hpf 02/14/24 21:59 Discharge Plan Discharge Patient Disposition: Home Clinical Impression: Nausea and vomiting during , UTI (urinary tract infection) in in first trimester Condition: Stable Prescriptions: New ondansetron HCl 4 mg tablet 4 mg PO Q8H Qty: 30 0RF cephalexin 500 mg capsule 500 mg PO BID 7 Days Qty: 14 0RF No Action valacyclovir 500 mg tablet 500 mg PO DAILY acetaminophen [Tylenol Extra Strength] 500 mg Tablet 1,000 mg PO Q4H PRN (Reason: Pain) metoclopramide HCl 10 mg tablet 10 mg PO Q6H PRN (Reason: nausea and vomiting) Qty: 14 0RF Discharge Orders: Discharge ED (Routine); Ordered 02/14/24 Ordered By: Mike Armas Referrals: Severino Cruz MD [Primary Care Provider] - Discharge Diet: Usual diet Discharge Activity: Increase activity as tolerated Patient Instructions: Nausea and Vomiting in (ED), (ED), Urinary Tract Infection in (ED) Activity Restrictions/Additional Instructions: Take Keflex as prescribed. Zofran for nausea as needed. Follow-up with [facility] SERVICES OFFICER next week as scheduled. Plenty of fluids. Monitor for any new or concerning symptoms you may have and return for reevaluation. Coding Level of Care Code ED Electric [employer] T[employer] for Tyler Sarabia
[2024-02-14 22:04] LABS: Alanine Aminotransferase 34 U/L (0-33); Albumin Level 3.7 g/dL (3.5-5.2); Alkaline Phosphatase 65 U/L (35-105); Anion Gap 13.8 (5-19); Aspartate Amino Transferase 20 U/L (0-32); Blood Urea Nitrogen 7 mg/dL (6-20); Calcium 8.5 mg/dL (8.5-10.5); Carbon Dioxide 19 mmol/L (22-29); Chloride 104 mmol/L (98-107); Creatinine Clr Calc Pharmacy 154.0979; Globulin 2.5 g/dL (1.3-4.6); Glomerular Filtration Rate 158.9 mL/min (90-130); Glucose 99 mg/dL (65-115); Lipase 22 U/L (13-60); Osmolality Calculated 274 mOsm/kg (285-295); Potassium 3.8 mmol/L (3.5-5.1); Sodium 133 mmol/L (136-145); Total Bilirubin 0.8 mg/dL (0.15-1.2); Total Protein 6.2 g/dL (6.6-8.7)
[2024-02-14 22:06] VITALS: BP 91/39; PULSE 79; RESP 16; TEMP 37.6; O2SAT 97
[2024-02-14 22:23] LABS: Add Urine Microscopic? YES; Bilirubin Urine 1+ (Negative); Blood Urine Neg (Negative); Glucose Urine UA Norm (Normal); Ketones Urine 1+ (Negative); Leukocyte Esterase Urine Trace (Negative); Nitrate Urine Negative (Negative); Protein Urine 1+ (Negative); Urine Appearance SL Hazy (CLEAR); Urine Color Yellow (Yellow); Urobilinogen Urine Norm (Negative); pH Urine 5 (5-7)
[2024-02-14] MEDS: ondansetron 2 mg/ML SDV 2 mL 4 MG IVP (22:25)
[2024-02-14 22:26] LABS: Add Urine Culture? No; Bacteria Urine TRACE /hpf; Mucus Urine 2+ /hpf; RBC Urine 0-4 /hpf (0-2); Squamous Epithelial Cell Urine 0-4 /hpf (0-5)
[2024-02-14] MEDS: sodium chloride 0.9% 1,000 ML 999 ML IV (22:28)
[2024-02-14 22:30] VITALS: BP 99/42; PULSE 79; RESP 15; O2SAT 97
[2024-02-14 22:31] LABS: C Reactive Protein 29.6 mg/L (0.0-4.9)
[2024-02-14 23:00] VITALS: BP 108/47
[2024-02-15] MEDS: cephALEXin 500 mg Capsule PO (00:04)
[2024-02-15 00:11] VITALS: BP 101/51; PULSE 84; RESP 16; O2SAT 100
== END 2024-02-15 00:13 | disposition home or self-care (01) ==
PROVIDERS: Emergency Medicine; Emergency Provider Physician Assistant; PCP Family Medicine
DX: O21.9 Vomiting of pregnancy, unspecified (principal); O23.41 Unspecified infection of urinary tract in pregnancy, first trimester; N39.0 Urinary tract infection, site not specified; Z3A.01 Less than 8 weeks gestation of pregnancy
CPT/HCPCS: 36415; 80053; 81001; 83690; 85025; 86140; 96361; 96374; 99284; J2405; J7030

== ENCOUNTER 2024-04-03 18:45 | Emergency (ER) | payer BC, MEDICAID, SELFPAY ==
[2024-04-03 18:58] VITALS: BP 107/65; PULSE 97; RESP 16; TEMP 37.1; O2SAT 100; BMI 23.0
--- NOTE | 2024-04-03 19:38 | ED_ITS ---
Documented by User: JAKUB Cummins 04/03/24 19:43 HPI - Back Pain/Injury General: Chief Complaint: Back Pain/Injury Stated Complaint: back pain Time Seen by Provider: 04/03/24 19:06 Source: patient Mode of arrival: ambulatory Limitations: no limitations History of Present Illness: Patient is a 18-year-old female who currently is 15 weeks , A0, who reports to the emergency department complaining of bilateral lower back pain onset 2 days. 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 She has not taken anything for pain, as she states Tylenol does not do anything for her. She denies any vaginal bleeding or other concerning symptoms associated with . She denies any abdominal pain or urinary symptoms. Pain initially started to the left paralumbar muscles, now on the right side. It is worsened with palpation and comes in intermittent jolts of pain. Her OB doctor is Dr. Bella. elicited complaint: back pain Onset (ago): day(s) Timing: intermittent Severity: moderate Similar Symptoms Previously: No Location: right lower back and left lower back Radiation: none Exacerbating factors: movement Relieving factors: none Context: other (, lifts at work) Associated symptoms: Deny abdominal pain, chills, dysuria, fatigue, fever(s), nausea or vomiting Review of Systems General: Reports: 10 or more systems reviewed and unremarkable except in HPI and below Const: Denies: fever(s), chills or fatigue Eyes: Denies: change in vision ENMT: Denies: throat pain, ear or mastoid pain or nasal discharge Card: Denies: chest pain, palpitations, swelling of feet/ankles or lightheadedness Resp: Denies: dyspnea, productive cough or wheezing GI: Denies: abdominal pain, nausea, vomiting, diarrhea or constipation : Reports: other (); Denies: flank pain, difficulty voiding, dysuria or urinary frequency Musc: Reports: back pain; Denies: neck pain or joint pain Skin/Breast: Denies: rash Neuro: Denies: headache(s), numbness in extremities or weakness in extremities PFSH ED PFSH: Medical History No pertinent past medical history Denies diabetes, hypertension, seizures, DVT/PE PCP: Dr. Cruz ADD (attention deficit disorder) Diagnosed at the age of 4[address] Cruz and is on medication---does not have a therapist. Asthma Diagnosed in fifth grade and is exercise-induced. She uses her albuterol inhaler once a day Surgical History Hx of foot surgery Right foot surgery x2 screws removed-- 05/02/2022 L foot surgery x2 History of surgical removal of ganglion cyst From left wrist performed when she was in the 5th grade History of bunionectomy of left great toe Performed in 2018 History of tonsillectomy At the age of 8 History of myringotomy As a child Family History Grandmother Diabetes paternal Grandfather Diabetes paternal Family/Other Breast cancer maternal great aunt, age at diagnosis unknown Mother Diabetes Denies family history of Colon cancer Ovarian cancer Heart disease Hyperlipidemia Hypertension Uterine cancer Thyroid disease Stroke Physical Exam Const: COMMON NORMALS: no acute distress, patient oriented x3 and no limitations GENERAL APPEARANCE: cooperative, comfortable and well developed ORIENTATION/CONSCIOUSNESS: Yes awake, Yes oriented to person, Yes oriented to place and Yes oriented to time HENMT: COMMON NORMALS: normocephalic, atraumatic and hearing grossly normal bilaterally HEAD & SCALP: normocephalic and atraumatic Eye: COMMON NORMALS: Equal, round and reactive pupils present, EOMs intact bilaterally and conjunctivae normal CONJUNCTIVA: Yes conjunctivae normal PUPIL: Yes Equal, round and reactive pupils present Neck/C-Spine: COMMON NORMALS: full ROM, supple and no JVD Resp: COMMON NORMALS: normal respiratory effort, No retractions, No use of accessory muscles and clear to auscultation bilaterally AUSCULTATION: clear to auscultation bilaterally Cardio: COMMON NORMALS: no JVD, regular rate, regular rhythm, No clicks present (Cardio), No murmurs present (Cardio) and No rub (Cardio) RATE: regular rate RHYTHM: regular rhythm GI: COMMON NORMALS: Normal to inspection, nondistended, normoactive bowel sounds present, Soft to palpation and non-tender INSPECTION: Yes gravid abdomen AUSCULTATION: Yes normoactive bowel sounds PALPATION: Yes Soft to palpation RECTAL EXAM: deferred : COMMON NORMALS: Yes no CVA tenderness BLADDER/KIDNEY EXAM: Yes no CVA tenderness Back/Pelvis: COMMON NORMALS: no CVA tenderness and thoracic and lumbar spine normal to inspection THORACIC SPINE/UPPER BACK: Yes normal to inspection LUMBAR SPINE/LOWER BACK: Yes normal to inspection, Yes pain with ROM, Yes paraspinal muscle tenderness Lumbar paraspinal muscle tenderness: bilateral and Yes paraspinal muscle spasm Lumbar paraspinal muscle spasm: bilateral Extremity: COMMON NORMALS: normal to inspection, full ROM and capillary refill normal Neuro: COMMON NORMALS: patient oriented x3, moves all extremities, no focal motor deficits and no sensory deficits noted SENSORIUM/ORIENTATION: Yes oriented to person, Yes oriented to place and Yes oriented to time Psych: COMMON NORMALS: mental status grossly normal and Normal thought process present THOUGHT PROCESS: Normal thought process present Skin: COMMON NORMALS: no rashes or lesions noted GENERAL SKIN EXAM: no ra shes or lesions noted Course Vital Signs: Vital signs: Vital Signs Temperature 98.7 F 04/03/24 18:58 Pulse Rate 97 04/03/24 18:58 Respiratory Rate 16 04/03/24 18:58 Blood Pressure 107/65 04/03/24 18:58 Pulse Oximetry 100 04/03/24 18:58 Oxygen Delivery Me thod Room Air 04/03/24 18:58 MDM - Back Pain/Injury Medical Decision Making Patient presents bilateral lower back pain, is currently [address] Bella. No concerning symptoms reported such as vaginal bleeding or severe abdominal pain. Has not taken anything for pain. Vitals on arrival unremarkable, and side effects reproducible tenderness palpation about the bilateral paralumbar muscles, her physical examination was normal. Due to this negative physical examination and reproducible tenderness palpation, I do believe patient's pain likely is muscle strain/spasm from lifting at work, associated with some general back pain in from increased abdominal girth. Care of this patient was discussed with supervising ED physician, Dr. Gonzalez, who agrees with disposition of this patient home and beginning her on Tylenol. She is also to follow-up with her OB this week for further evaluation. Urinalysis obtained did not demonstrate any signs of infection. Strict return precautions were given to the emergency department. Labs Laboratory Results Urine Color Yellow (Yellow) 04/03/24 19:42 Urine Appearance Clear (CLEAR) 04/03/24 19:42 Urine pH 7 (5-7) 04/03/24 19:42 Ur Specific Fallon 1.005 (1.005-1.030) 04/03/24 19:42 Urine Protein Neg (Negative) 04/03/24 19:42 Urine Glucose (UA) Norm (Normal) 04/03/24 19:42 Urine Ketones Negative (Negative) 04/03/24 19:42 Urine Blood Neg (Negative) 04/03/24 19:42 Urine Nitrate Negative (Negative) 04/03/24 19:42 Urine Bilirubin Neg (Negative) 04/03/24 19:42 Urine Urobilinogen Norm mg/dL (Negative) 04/03/24 19:42 Ur Leukocyte Esterase Negative (Negative) 04/03/24 19:42 No radiology studies performed this visit Discharge Plan Discharge Patient Disposition: Home Clinical Impression: Low back pain during Qualifiers: Trimester: second trimester Qualified Code(s): O26.892 - Other specified related conditions, second trimester Condition: Stable Prescriptions: No Action valacyclovir 500 mg tablet 500 mg PO DAILY acetaminophen [Tylenol Extra Strength] 500 mg Tablet 1,000 mg PO Q4H PRN (Reason: Pain) ondansetron HCl 4 mg tablet 4 mg PO Q8H Qty: 30 0RF metoclopramide HCl 10 mg tablet 10 mg PO Q6H PRN (Reason: nausea and vomiting) Qty: 14 0RF Discharge Orders: Discharge ED (Routine); Ordered 04/03/24 Ordered By: Mike Armas Referrals: Severino Cruz MD [Primary Care Provider] - Discharge Diet: Usual diet Discharge Activity: Increase activity as tolerated Patient Instructions: Back Pain (ED) Activity Restrictions/Additional Instructions: Please take Tylenol as instructed. Follow-up with your OB as usual. Avoid any strenuous lifting or movements while at work. Ice/heat for added relief. Your urinalysis today was negative for any signs of infection. Please return with any new or worsening symptoms. 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 Cruz ADD (attention deficit disorder) Diagnosed at the age of 4[address] Cruz and is on medication---does not have a therapist. Asthma Diagnosed in fifth grade and is exercise-induced. She uses her albuterol inhaler once a day Surgical History Hx of foot surgery Right foot surgery x2 screws removed-- 05/02/2022 L foot surgery x2 History of surgical removal of ganglion cyst From left wrist performed when she was in the 5th grade History of bunionectomy of left great toe Performed in 2018 History of tonsillectomy At the age of 8 History of myringotomy As a child Family History Grandmother Diabetes paternal Grandfather Diabetes paternal Family/Other Breast cancer maternal great aunt, age at diagnosis unknown Mother Diabetes Denies family history of Colon cancer Ovarian cancer Heart disease Hyperlipidemia Hypertension Uterine cancer Thyroid disease Stroke Course Vital Signs: Vital signs: Vital Signs Temperature 98.7 F 04/03/24 18:58 Pulse Rate 97 04/03/24 18:58 Respiratory Rate 16 04/03/24 18:58 Blood Pressure 107/65 04/03/24 18:58 Pulse Oximetry 100 04/03/24 18:58 Oxygen Delivery Me thod Room Air 04/03/24 18:58 MDM - Back Pain/Injury Medical Decision Making Patient presents bilateral lower back pain, is currently [address] Bella. No concerning symptoms reported such as vaginal bleeding or severe abdominal pain. Has not taken anything for pain. Vitals on arrival unremarkable, and side effects reproducible tenderness palpation about the bilateral paralumbar muscles, her physical examination was normal. Due to this negative physical examination and reproducible tenderness palpation, I do believe patient's pain likely is muscle strain/spasm from lifting at work, associated with some general back pain in from increased abdominal girth. Care of this patient was discussed with supervising ED physician, Dr. Gonzalez, who agrees with disposition of this patient home and beginning her on Tylenol. She is also to follow-up with her OB this week for further evaluation. Urinalysis obtained did not demonstrate any signs of infection. Strict return precautions were given to the emergency department. Chart reviewed Labs Laboratory Results Urine Color Yellow (Yellow) 04/03/24 19:42 Urine Appearance Clear (CLEAR) 04/03/24 19:42 Urine pH 7 (5-7) 04/03/24 19:42 Ur Specific Fallon 1.005 (1.005-1.030) 04/03/24 19:42 Urine Protein Neg (Negative) 04/03/24 19:42 Urine Glucose (UA) Norm (Normal) 04/03/24 19:42 Urine Ketones Negative (Negative) 04/03/24 19:42 Urine Blood Neg (Negative) 04/03/24 19:42 Urine Nitrate Negative (Negative) 04/03/24 19:42 Urine Bilirubin Neg (Negative) 04/03/24 19:42 Urine Urobilinogen Norm mg/dL (Negative) 04/03/24 19:42 Ur Leukocyte Esterase Negative (Negative) 04/03/24 19:42 Discharge Plan Discharge Patient Disposition: Home Clinical Impression: Low back pain during Qualifiers: Trimester: second trimester Qualified Code(s): O26.892 - Other specified related conditions, second trimester Condition: Stable Prescriptions: No Action valacyclovir 500 mg tablet 500 mg PO DAILY acetaminophen [Tylenol Extra Strength] 500 mg Tablet 1,000 mg PO Q4H PRN (Reason: Pain) ondansetron HCl 4 mg tablet 4 mg PO Q8H Qty: 30 0RF metoclopramide HCl 10 mg tablet 10 mg PO Q6H PRN (Reason: nausea and vomiting) Qty: 14 0RF Discharge Orders: Discharge ED (Routine); Ordered 04/03/24 Ordered By: Mike Armas Referrals: Severino Cruz MD [Primary Care Provider] - Discharge Diet: Usual diet Discharge Activity: Increase activity as tolerated Patient Instructions: Back Pain (ED) Activity Restrictions/Additional Instructions: Please take Tylenol as instructed. Follow-up with your OB as usual. Avoid any strenuous lifting or movements while at work. Ice/heat for added relief. Your urinalysis today was negative for any signs of infection. Please return with any new or worsening symptoms. 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
[2024-04-03] MEDS: acetaminophen 500 mg Tablet 1000 MG PO (19:55)
[2024-04-03 20:02] LABS: Add Urine Microscopic? NO; Charge for UA Resulting for Rev
[2024-04-03 20:18] LABS: Bilirubin Urine Neg (Negative); Blood Urine Neg (Negative); Glucose Urine UA Norm (Normal); Ketones Urine Negative (Negative); Leukocyte Esterase Urine Negative (Negative); Nitrate Urine Negative (Negative); Protein Urine Neg (Negative); Specific Gravity, Urine 1.005 (1.005-1.030); Urine Appearance Clear (CLEAR); Urine Color Yellow (Yellow); Urobilinogen Urine Norm (Negative); pH Urine 7 (5-7)
== END 2024-04-03 20:34 | disposition home or self-care (01) ==
PROVIDERS: Emergency Provider Physician Assistant; PCP Family Medicine
DX: O26.892 Other specified pregnancy related conditions, second trimester (principal); M54.50 Low back pain, unspecified; Z3A.15 15 weeks gestation of pregnancy
CPT/HCPCS: 81003; 99283

== ENCOUNTER 2024-06-01 11:47 | Outpatient (CLI) | payer MEDICAID, SELFPAY ==
[2024-06-01] VITALS (8 sets, daily range): BP systolic 98–114; BP diastolic 55–61; PULSE 76–85; RESP 17; TEMP 36.5; BMI 25.8
[2024-06-01 12:08] LABS: Bilirubin Urine Negative (Negative); Blood Urine 1+ (Negative); Glucose Urine UA Negative (Normal); Ketones Urine Negative (Negative); Leukocyte Esterase Urine Trace (Negative); Nitrate Urine Negative (Negative); Protein Urine Negative (Negative); Specific Gravity, Urine 1.019 (1.005-1.030); Urine Appearance Clear (CLEAR); Urine Color Yellow (Yellow); pH Urine 7.5 (5-7)
[2024-06-01 12:13] LABS: Bacteria Urine Trace /hpf; WBC Urine 0-5 /hpf (0-5)
--- NOTE | 2024-06-01 12:15 | US_ITS ---
WS: [id number] RENAL ULTRASOUND HISTORY: severe back pain COMPARISON: 01/25/2024 TECHNIQUE: 2-D and color Doppler imaging of the kidney submitted. Right kidney: 10.9 cm x 4.4 cm x 5.6 cm. Cortex: 1.3 cm Normal size kidney. There is mild hydronephrosis. Very mild central and calyceal dilatation. No mass. RIGHT ureter is not identified. Left kidney: 10.6 cm x 5.2 cm x 5.5 cm. Cortex: 1.3 cm Normal echogenicity with no hydronephrosis or mass. Aorta: Normal. Urinary Bladder: Normal distention. US/US renal BI* [id number] IMPRESSION: Mild RIGHT hydronephrosis. New since 01/25/2024 may be related to the gravid [place] owing[place] samuel.
--- NOTE | 2024-06-01 12:16 | US_ITS ---
WS: [id number] ULTRASOUND OB FOCUSED HISTORY: and placental evaluation COMPARISON: 05/14/2024 Single intrauterine gestation in cephalic position. The cervix is closed at 3.3 cm. Normal amount of amniotic fluid. Placenta is ending 3.2 cm above the cervical os. Placenta is posterior and grade 1. heart rate at 152 BPM. US/US OB limited [id number] IMPRESSION: 1. Fetus in cephalic position. 2. Posterior placenta with no previa or abruption. 3. Normal cardiac activity.
[2024-06-01 12:28] LABS: Add Urine Culture? No
[2024-06-01] MEDS: acetaminophen 500 mg Tablet 1000 MG PO (13:26)
[2024-06-01] MEDS: HYDROcodone-acetaminophen 5-325 mg Tablet 1 TAB PO (14:27)
== END 2024-06-01 14:29 | disposition home or self-care (01) ==
LOC: OPOB 11:48 → OBGYN 11:49
PROVIDERS: PCP Family Medicine; Visit Provider Family Medicine
DX: O26.899 Other specified pregnancy related conditions, unspecified trimester (principal); Z3A.00 Weeks of gestation of pregnancy not specified; M54.9 Dorsalgia, unspecified
CPT/HCPCS: 76770; 76815; 81001; 99211

== ENCOUNTER 2024-06-16 13:52 | Outpatient (CLI) | payer MEDICAID, SELFPAY ==
[2024-06-16 13:57] VITALS: BMI 26.5
[2024-06-16 14:52] VITALS: BP 102/55; PULSE 83
[2024-06-16 14:53] LABS: Bilirubin Urine Negative (Negative); Blood Urine Negative (Negative); Glucose Urine UA Negative (Normal); Ketones Urine Negative (Negative); Leukocyte Esterase Urine 3+ (Negative); Nitrate Urine Negative (Negative); Protein Urine Negative (Negative); Specific Gravity, Urine 1.005 (1.005-1.030); Urine Appearance Clear (CLEAR); Urine Color Yellow (Yellow); Urobilinogen Urine 0.2 mg/dL (Negative); pH Urine 6.5 (5-7)
[2024-06-16 14:58] LABS: Bacteria Urine 2+ /hpf; Hyaline Casts Urine 4.52 /lpf; RBC Urine 0-2 /hpf (0-2); WBC Urine 21-50 /hpf (0-5)
[2024-06-16 15:04] VITALS: TEMP 36.5; O2SAT 98
[2024-06-16 15:07] VITALS: BP 99/57; PULSE 80
[2024-06-16 15:22] VITALS: BP 100/58; PULSE 78
[2024-06-16 15:39] VITALS: BP 100/58; PULSE 78; RESP 16; O2SAT 98
== END 2024-06-16 15:52 | disposition home or self-care (01) ==
LOC: OPOB 13:54 → OBGYN 14:24
PROVIDERS: PCP Family Medicine; Visit Provider Family Medicine
DX: O26.899 Other specified pregnancy related conditions, unspecified trimester (principal); Z3A.00 Weeks of gestation of pregnancy not specified; R06.02 Shortness of breath
CPT/HCPCS: 81001

== ENCOUNTER 2024-08-22 12:10 | Outpatient (CLI) | payer MEDICAID, SELFPAY ==
[2024-08-22 12:26] VITALS: BP 128/69; PULSE 77
[2024-08-22 12:29] VITALS: BMI 30.1
[2024-08-22 12:51] LABS: Bilirubin Urine Negative (Negative); Blood Urine Negative (Negative); Glucose Urine UA Negative (Normal); Ketones Urine Negative (Negative); Leukocyte Esterase Urine Trace (Negative); Nitrate Urine Negative (Negative); Protein Urine Negative (Negative); Specific Gravity, Urine 1.002 (1.005-1.030); Urine Appearance Clear (CLEAR); Urine Color Yellow (Yellow); Urobilinogen Urine 0.2 mg/dL (Negative); pH Urine 6.5 (5-7)
[2024-08-22 12:56] VITALS: BP 120/64; PULSE 82
[2024-08-22 12:56] LABS: Bacteria Urine None Seen /hpf; Hyaline Casts Urine 0.81 /lpf; RBC Urine 0-2 /hpf (0-2); Squamous Epithelial Cell Urine 0-5 /hpf (0-5); WBC Urine 0-5 /hpf (0-5)
[2024-08-22] MEDS: cyclobenzaprine 10 mg Tablet 5 MG PO (13:23)
[2024-08-22] MEDS: acetaminophen 500 mg Tablet 1000 MG PO (13:23)
[2024-08-22 13:39] VITALS: BP 113/72; PULSE 81; RESP 17; O2SAT 98
[2024-08-22 15:46] VITALS: BP 113/72; PULSE 81
== END 2024-08-22 13:39 | disposition home or self-care (01) ==
LOC: OPOB 12:10 → OBGYN 12:11
PROVIDERS: PCP Family Medicine; Visit Provider Family Medicine
DX: O26.899 Other specified pregnancy related conditions, unspecified trimester (principal); Z3A.00 Weeks of gestation of pregnancy not specified; R10.9 Unspecified abdominal pain
CPT/HCPCS: 59025; 81001; 99211

== ENCOUNTER 2024-09-09 22:04 | Outpatient (CLI) | payer MEDICAID, SELFPAY ==
[2024-09-09] VITALS (7 sets, daily range): BP systolic 129–140; BP diastolic 78–91; PULSE 73–86; BMI 31.9
== END 2024-09-10 00:05 | disposition home or self-care (01) ==
LOC: OPOB 22:05 → OBGYN 22:06
PROVIDERS: PCP Family Medicine; Visit Provider Family Medicine
DX: O16.9 Unspecified maternal hypertension, unspecified trimester (principal); Z3A.00 Weeks of gestation of pregnancy not specified
CPT/HCPCS: 59025; 99211

== ENCOUNTER 2024-09-12 05:34 | Outpatient (CLI) | payer MEDICAID, SELFPAY ==
[2024-09-12] VITALS (13 sets, daily range): BP systolic 113–132; BP diastolic 56–80; PULSE 66–85; RESP 17–18; BMI 31.6
[2024-09-12] MEDS: acetaminophen 500 mg Tablet 1000 MG PO (08:01)
== END 2024-09-12 10:00 | disposition home or self-care (01) ==
LOC: OPOB 05:35 → OBGYN 05:36
PROVIDERS: PCP Family Medicine; Visit Provider Family Medicine
DX: O26.899 Other specified pregnancy related conditions, unspecified trimester (principal); Z3A.00 Weeks of gestation of pregnancy not specified; R10.9 Unspecified abdominal pain
CPT/HCPCS: 59025; 99211

== ENCOUNTER 2024-09-13 22:00 | Outpatient (CLI) | payer MEDICAID, SELFPAY ==
[2024-09-13 22:00] VITALS: BMI 32.2
[2024-09-13 22:58] VITALS: BP 125/79; PULSE 71
[2024-09-13 23:00] VITALS: BP 125/79; PULSE 71; RESP 15; TEMP 36.2; O2SAT 99
== END 2024-09-13 23:12 | disposition home or self-care (01) ==
LOC: OPOB 22:15 → OBGYN 22:18
PROVIDERS: PCP Family Medicine; Visit Provider Family Medicine
DX: O36.8190 Decreased fetal movements, unspecified trimester, not applicable or unspecified (principal); Z3A.00 Weeks of gestation of pregnancy not specified
CPT/HCPCS: 59025; 83986; 99211

== ENCOUNTER 2024-09-17 17:03 | Outpatient (CLI) | payer MEDICAID, SELFPAY ==
[2024-09-17 17:15] VITALS: BMI 31.8
[2024-09-17 17:17] VITALS: BP 144/98; PULSE 85
[2024-09-17 17:37] VITALS: BP 145/93; PULSE 80
[2024-09-17 18:01] VITALS: BP 153/94; PULSE 77
[2024-09-17 19:06] VITALS: BP 153/79; PULSE 82
[2024-09-17 19:27] VITALS: BP 140/68; PULSE 80
== END 2024-09-17 19:46 | disposition home or self-care (01) ==
LOC: OPOB 17:03 → OBGYN 17:11
PROVIDERS: PCP Family Medicine; Visit Provider Family Medicine
DX: O26.899 Other specified pregnancy related conditions, unspecified trimester (principal); Z3A.00 Weeks of gestation of pregnancy not specified; R10.9 Unspecified abdominal pain
CPT/HCPCS: 59025; 99211

== ENCOUNTER 2024-09-19 00:03 | Inpatient (IN) | payer MEDICAID, SELFPAY ==
[2024-09-18] VITALS (48 sets, daily range): BP systolic 130–197; BP diastolic 73–108; PULSE 69–101; O2SAT 100
[2024-09-18] MEDS: lactated ringers 1,000 ML 999 ML IV ×2 (17:05→18:06)
[2024-09-18 17:19] LABS: Basophils % 0.4 %; Eosinophils # 0.1 10^3/uL (0.0-0.8); Eosinophils % 1.3 %; Hematocrit 30.2 % (36-47); Lymphocytes # 1.9 10^3/uL (1.5-6.5); Lymphocytes % 19.1 %; Mean Corpuscular HGB Conc 30.1 g/dL (30-55); Mean Corpuscular Hemoglobin 22.7 pg (27-33); Mean Corpuscular Volume 75.3 fl (85-98); Mean Platelet Volume 12.1 fL (7.4-10.4); Monocytes # 0.8 10^3/uL (0.2-0.9); Monocytes % 7.4 %; Neutrophils # 7.07 10^3/uL (1.8-8.0); Neutrophils % 69.8 %; Nucleated Red Blood Cells # 0.1 /100WBC; Nucleated Red Blood Cells % 0.7 %; Platelet Count 206 10^3/cmm (157-399); Red Blood Count 4.01 10^6/uL (3.85-5.65); Red Cell Distribution Width 16.6 % (12.1-15.1); White Blood Count 10.12 10^3/uL (4.5-13.0)
[2024-09-18 18:02] LABS: Add RBC Morph Yes; Anisocytosis 1+; Hypochromasia 1+; Microcytosis 1+; Pathology Refferal No; Polychromasia 1+; RBC Morph Comp Yes; Slide Review Slide Review Perform
--- NOTE | 2024-09-18 18:45 | ANES.PREANE2 ---
Pre-Anesthetic Assessment Height/Weight: Height 1.6 m Weight 83.461 kg Pulse BP Pulse Ox 73 158/81 100 09/18/24 18:41 09/18/24 18:41 09/18/24 18:38 Preop Diagnosis: Labor pain JORDIN Was Beta Maddie taken within 24 hours: N/A Was Clonidine taken within 24 hours: N/A Social No alcohol and No tobacco Exam alert, oriented x 3, clear to auscultation bilaterally and regular rate & rhythm Airway Submandibular: within normal limits Cervical ROM: within normal limits Mallampati: Class II Dentition: full History/ROS No significant history except as noted and No significant complaints Pulmonary Asthma Stable recently CV/HEM None reported None reported Hepatic None reported GI None reported Metabolic None reported Musc/skel None reported Neuropsych None reported Anesthetic Plan ASA status: 2 Anesthesia: Anesthesia Evaluation and Regional (specify below) Other: JORDIN Risk of > 500 ml blood loss (7ml/kg in children): No Medications/Allergies Home Medications Medication Instructions Recorded Confirmed Last Taken Type 1 tab PO DAILY 09/09/24 09/17/24 09/09/24 10:00 History Allergies Allergy/AdvReac Type Severity Reaction Status Date / Time benzoin Allergy Severe blistering Verified 09/13/24 23:19 Current Medications Generic Name Dose Route Start Last Admin Trade Name Freq PRN Reason Stop Dose Admin Lactated Ringer's 1,000 mls @ 999 mls/hr 09/18/24 16:22 09/18/24 17:05 Lactated Ringers IV 999 mls/hr .Q1H1M PRN Administration See label comments [facility] Anesthesia Medical History No pertinent past medical history Denies diabetes, hypertension, seizures, DVT/PE PCP: Dr. Cruz ADD (attention deficit disorder) Diagnosed at the age of 4[address] Cruz and is on medication---does not have a therapist. Asthma Diagnosed in fifth grade and is exercise-induced. She uses her albuterol inhaler once a day Surgical History Hx of foot surgery Right foot surgery x2 screws removed-- 05/02/2022 L foot surgery x2 History of surgical removal of ganglion cyst From left wrist performed when she was in the 5th grade History of bunionectomy of left great toe Performed in 2018 History of tonsillectomy At the age of 8 History of myringotomy As a child Family History Grandmother Diabetes paternal Grandfather Diabetes paternal Family/Other Breast cancer maternal great aunt, age at diagnosis unknown Mother Diabetes Denies family history of Colon cancer Ovarian cancer Heart disease Hyperlipidemia Hypertension Uterine cancer Thyroid disease Stroke Female Reproductive History : 1 Data Anesthesia 09/18/24 17:05 Short CBC 09/18/24 Range/Units 17:05 WBC 10.12 (4.5-13.0) 10^3/uL Hgb 9.10 L (12.4-14.8) g/dL Hct 30.2 L (36-47) % MCV 75.3 L (85-98) fl Plt Count 206 (157-399) 10^3/cmm Neut % (Auto) 69.8 % Neut # (Auto) 7.07 (1.8-8.0) 10^3/uL Blood Bank 09/18/24 17:05 Blood Type A Positive Rho(D) Type Rh positive Antibody Screen Negative Cardiac Studies: No Data to Display
[2024-09-18] MEDS: ROPivacaine syringe 100 MG/50 ML SYRINGE 10 MG EPIDURAL ×2 (18:46→21:54)
--- NOTE | 2024-09-18 18:47 | ANES.PROC ---
Anesthesia Procedures Procedure/Date: 09/18/24 Epidural: Time Out Performed: Yes Consents Signed: Procedure Consent Consent: requested by attending/covering physician and from patient Lumbar Level: L3-L4 Epidural position: sitting Epidural procedure: sterile prep of area, 1% lidocaine to numb the area, 18 g needle, neg for paresthesia, test dose given (4cc), 1.5% xylocaine 1:200k epi, 0.2% Ropivacaine bolus ml (4cc and Fentanyl 100mcg), no systemic response, sterile dressing applied, L.U.D. no apparent complications and 0.2% Ropiavacaine @ mls/hr (13cc/hour) Additional Comments: Pt tolerated well
[2024-09-18] MEDS: dextrose 5%-lactated ringers 1,000 ML 125 ML IV (19:53)
[2024-09-18] MEDS: ondansetron 2 mg/ML SDV 2 mL 4 MG IVP (21:46)
--- NOTE | 2024-09-18 21:54 | PC.ADMIT ---
[id number] Admission Note: The patient,Bushra Saleem,18 y/o, was given written information regarding hospital policies, unit procedures and contact persons. Patient's smoking status: . Vital Signs - 8 hr 09/18/24 15:31 09/18/24 15:47 09/18/24 16:02 Pulse Rate 78 87 Blood Pressure 138/93 164/104 155/97 Pulse Oximetry Oxygen Delivery Method 09/18/24 16:02 09/18/24 16:15 09/18/24 16:17 Pulse Rate 80 Blood Pressure 143/90 Pulse Oximetry Oxygen Delivery Method Room Air 09/18/24 16:17 09/18/24 17:10 09/18/24 17:10 Pulse Rate 79 78 Blood Pressure 148/94 Pulse Oximetry Oxygen Delivery Method 09/18/24 17:26 09/18/24 17:26 09/18/24 17:42 Pulse Rate 74 Blood Pressure 153/91 158/87 Pulse Oximetry Oxygen Delivery Method 09/18/24 17:42 09/18/24 18:10 09/18/24 18:10 Pulse Rate 72 71 Blood Pressure 141/87 Pulse Oximetry Oxygen Delivery Method 09/18/24 18:28 09/18/24 18:28 09/18/24 18:29 Pulse Rate 100 Blood Pressure 197/108 Pulse Oximetry 100 Oxygen Delivery Method 09/18/24 18:29 09/18/24 18:32 09/18/24 18:32 Pulse Rate 86 90 Blood Pressure 149/76 Pulse Oximetry Oxygen Delivery Method 09/18/24 18:33 09/18/24 18:33 09/18/24 18:35 Pulse Rate 83 Blood Pressure 151/76 Pulse Oximetry 100 Oxygen Delivery Method 09/18/24 18:35 09/18/24 18:38 09/18/24 18:38 Pulse Rate 85 83 Blood Pressure 172/77 Pulse Oximetry Oxygen Delivery Method 09/18/24 18:38 09/18/24 18:38 09/18/24 18:41 Pulse Rate 81 Blood Pressure 158/81 Pulse Oximetry 100 Oxygen Delivery Method 09/18/24 18:41 09/18/24 18:44 09/18/24 18:44 Pulse Rate 73 76 Blood Pressure 158/81 Pulse Oximetry Oxygen Delivery Method 09/18/24 18:45 09/18/24 18:45 09/18/24 18:47 Pulse Rate 72 Blood Pressure 142/75 Pulse Oximetry 100 Oxygen Delivery Method 09/18/24 18:47 09/18/24 18:50 09/18/24 18:50 Pulse Rate 71 Blood Pressure 136/75 Pulse Oximetry 100 Oxygen Delivery Method 09/18/24 18:50 09/18/24 18:53 09/18/24 18:53 Pulse Rate 73 71 Blood Pressure 139/76 Pulse Oximetry Oxygen Delivery Method 09/18/24 18:55 09/18/24 18:55 09/18/24 18:56 Pulse Rate 75 Blood Pressure 132/73 Pulse Oximetry 100 Oxygen Delivery Method 09/18/24 18:56 09/18/24 18:59 09/18/24 18:59 Pulse Rate 77 71 Blood Pressure 133/77 Pulse Oximetry Oxygen Delivery Method 09/18/24 19:00 09/18/24 19:00 09/18/24 19:02 Pulse Rate 69 Blood Pressure 147/97 Pulse Oximetry 100 Oxygen Delivery Method 09/18/24 19:02 09/18/24 19:05 09/18/24 19:05 Pulse Rate 72 78 Blood Pressure 146/97 Pulse Oximetry Oxygen Delivery Method 09/18/24 19:05 09/18/24 19:05 09/18/24 19:08 Pulse Rate 79 Blood Pressure 145/93 Pulse Oximetry 100 Oxygen Delivery Method 09/18/24 19:08 09/18/24 19:11 09/18/24 19:11 Pulse Rate 80 76 Blood Pressure 148/84 Pulse Oximetry Oxygen Delivery Method 09/18/24 19:14 09/18/24 19:14 09/18/24 19:33 Pulse Rate 82 Blood Pressure 136/79 139/89 Pulse Oximetry Oxygen Delivery Method 09/18/24 19:33 09/18/24 19:47 09/18/24 19:47 Pulse Rate 74 78 Blood Pressure 141/84 Pulse Oximetry Oxygen Delivery Method 09/18/24 20:02 09/18/24 20:02 09/18/24 20:17 Pulse Rate 71 Blood Pressure 135/80 139/85 Pulse Oximetry Oxygen Delivery Method 09/18/24 20:17 09/18/24 20:32 09/18/24 20:32 Pulse Rate 73 77 Blood Pressure 137/82 Pulse Oximetry Oxygen Delivery Method 09/18/24 20:48 09/18/24 20:48 09/18/24 21:03 Pulse Rate 83 Blood Pressure 145/83 135/88 Pulse Oximetry Oxygen Delivery Method 09/18/24 21:03 09/18/24 21:18 09/18/24 21:18 Pulse Rate 88 90 Blood Pressure 142/89 Pulse Oximetry Oxygen Delivery Method 09/18/24 21:32 09/18/24 21:32 09/18/24 21:48 Pulse Rate 81 Blood Pressure 141/90 137/82 Pulse Oximetry Oxygen Delivery Method 09/18/24 21:48 Pulse Rate 76 Blood Pressure Pulse Oximetry Oxygen Delivery Method
--- NOTE | 2024-09-18 22:52 | ANES.PROC ---
Anesthesia Procedures Procedure/Date: 09/18/24 Other Information: Pt CO pressure/pain. Dilated to 7.5 cm. Epidural topped off with Lido 2% 4cc and Fentanyl 100mcg. Pt expressed some relief.
[2024-09-19] VITALS (35 sets, daily range): BP systolic 133–188; BP diastolic 66–115; PULSE 77–144; RESP 16; TEMP 36.4–37.4; O2SAT 98–99
[2024-09-19] MEDS: ROPivacaine syringe 100 MG/50 ML SYRINGE 10 MG EPIDURAL (00:18)
[2024-09-19] MEDS: oxytocin 30 UNIT/500 ML BAG 600 UNIT IV (02:32)
--- NOTE | 2024-09-19 02:49 | PM.OPHPUD ---
Labor & Delivery H&P Update Date of Procedure: September 19, 2024 Date H&P Performed: 09/13/24 Changes to previous documentation: The patient presents in active labor making cervical change. Admission Diagnosis: 18-year-old 1 at 38 weeks estimated gestational age in active labor Preop diagnosis: Labor pain Planned procedure: Spontaneous vaginal delivery Other information: The patient presented to the hospital after having contractions over the last several days. There becoming increasingly more severe and when she was checked in the hospital she was found to have made cervical change. Her is otherwise been unremarkable. Her blood type is a positive. Her antibody screen was negative. She was GBS negative. She passed her glucose screen. She is rubella immune. The remainder infectious disease profile was within normal limits. Related Problem List Diagnoses (1) 38 weeks gestation of : (2) Active labor: A&P Assessment and plan (1) 38 weeks gestation of : I anticipate routine labor and vaginal delivery. Status: Resolved (2) Active labor: Status: Resolved
--- NOTE | 2024-09-19 02:50 | P.PCNOB_ITS ---
Delivery Note: Date of delivery: September 19, 2024 Pre-delivery diagnoses: 18-year-old 1 at 38 weeks estima vasu gestational age presenting in active labor Post-delivery diagnoses: Status post spontaneous vaginal delivery Procedure: Spontaneous vaginal delivery Estimated blood loss (mL): 150 Pre-Delivery Course: The patient presented to the hospital. She was noted to be in active labor. An epidural was placed. An amniotomy was performed. She progressed to complete. Delivery: DELIVERY: The patient progressed to complete without difficulty. She delivered a male with a weight of 7 pounds 4 ounces with Apgars of 8, 9. The baby was delivered from the ARIEL position and placed on the mother's abdomen. The cord was then clamped and cut. There was no nuchal cord. There was no meconium. The placenta and 3 vessel cord were delivered intact shortly thereafter. The perineum and vaginal vault were carefully examined. A first-degree vaginal wall laceration extending onto the left labia was noted. It was repaired with 3-0 Vicryl and 2 interrupted simple stitches. Both the mother and the baby were in stable condition. Post-Delivery Status: Good History History History 1 Term Miscarriages/Ectopic Living Children A&P Assessment and plan (1) Spontaneous vaginal delivery: I anticipate routine care Coding Level of Care Code Acute Code for Chg Fwd Diagnoses Spontaneous vaginal delivery O80
[2024-09-19] MEDS: lanolin oint 7 gm 1 APPLIC TOPICAL (07:57)
[2024-09-19] MEDS: benzocaine-menthol 78 gm Canister 1 SPRAY TOPICAL (07:57)
[2024-09-19] MEDS: PRENATAL VIT NO.130/IRON/FOLIC 1 EACH TABLET PO (09:00)
[2024-09-19] MEDS: docusate sodium 100 mg Capsule PO ×2 (09:00→20:04)
[2024-09-19] MEDS: ibuprofen 800 mg tablet PO ×3 (09:00→20:04)
--- NOTE | 2024-09-19 14:56 | ANE.PACU2 ---
Inpatient post-anesthesia follow up: Airway intact: Yes Vital signs: Temperature 98.2 F Pulse Rate 70 Respiratory Rate 16 Blood Pressure 129/89 Pulse Oximetry 99 Oxygen Delivery Me thod Room Air Oxygen Flow Rate Fraction of Inspir ed Oxygen Hydration adequate: Yes Nausea and vomiting: No Pain level: 1 Mental status: Baseline Epidural Start/End: Epidural Start Date: 09/18/24 Epidural Start Time: 18:23 Epidural End Date: 09/19/24 Epidural End Time: 05:22
[2024-09-19 15:13] LABS: Hematocrit 24.3 % (36-47); Mean Corpuscular Hemoglobin 22.7 pg (27-33); Mean Corpuscular Volume 75.5 fl (85-98); Mean Platelet Volume 13.3 fL (7.4-10.4); Platelet Count 193 10^3/cmm (157-399); Red Blood Count 3.22 10^6/uL (3.85-5.65); Red Cell Distribution Width 16.7 % (12.1-15.1); White Blood Count 15.67 10^3/uL (4.5-13.0)
[2024-09-20 04:19] VITALS: BP 138/93; PULSE 73; RESP 14; TEMP 36.7; O2SAT 97
[2024-09-20 08:45] LABS: Hematocrit 25.4 % (36-47); Mean Corpuscular HGB Conc 29.9 g/dL (30-55); Mean Corpuscular Volume 76.7 fl (85-98); Mean Platelet Volume 12.4 fL (7.4-10.4); Platelet Count 205 10^3/cmm (157-399); Red Blood Count 3.31 10^6/uL (3.85-5.65); Red Cell Distribution Width 17.2 % (12.1-15.1); White Blood Count 12.14 10^3/uL (4.5-13.0)
--- NOTE | 2024-09-20 08:46 | PC.NURSE ---
EDUCATION PROVIDED ON CIRCUMCISION CARE TO PATIENT AND SIGNIFICANT OTHER.
[2024-09-20 09:35] LABS: Absolute Segmented Neutrophil 8.6 10/cmm (1.6-7.1); Band Neutrophils Absolute 0.2 10^3/cmm (0.0-1.2); Lymphocytes 21 %; Segmented Neutrophils 71 %; Total Cells Counted 100 (0-100)
[2024-09-20 09:36] LABS: Absolute Eosinophils 0.2 10^3/cmm (0.0-0.7); Absolute Neutrophil 8.9 10^3/cmm (1.4-6.5); Eosinophils 2 %; Giant Platelets Trace; Lymphocytes Absolute 2.7 10^3/cmm (1.2-3.4); Monocytes Absolute 0.1 10^3/cmm (0.1-0.6); Platelet Estimate Normal (Normal)
[2024-09-20 09:37] LABS: Anisocytosis 1+; Hypochromasia 1+; Microcytosis 1+
[2024-09-20] MEDS: ibuprofen 800 mg tablet PO (09:42)
[2024-09-20] MEDS: docusate sodium 100 mg Capsule PO (09:42)
[2024-09-20] MEDS: PRENATAL VIT NO.130/IRON/FOLIC 1 EACH TABLET PO (09:42)
[2024-09-20 11:00] VITALS: BP 129/89; PULSE 70; RESP 16; TEMP 36.8; O2SAT 99
[2024-09-20 11:15] VITALS: BP 129/89; PULSE 70; RESP 16; TEMP 36.8; O2SAT 99
== END 2024-09-20 11:20 | disposition home or self-care (01) | DRG 807 ==
LOC: OPOB 00:04 → OBGYN 00:04
PROVIDERS: Admitting Provider Family Medicine; PCP Family Medicine; Visit Provider Family Medicine
DX: O70.0 First degree perineal laceration during delivery (principal); Z37.0 Single live birth; Z3A.38 38 weeks gestation of pregnancy; O75.89 Other specified complications of labor and delivery; F98.8 Other specified behavioral and emotional disorders with onset usually occurring in childhood and adolescence; J45.990 Exercise induced bronchospasm
CPT/HCPCS: 36415; 51702; 59025; 59409; 85007; 85025; 85027; 86850; 86900; 96374; 96376; 98960; 99211; J2405; J2590; J2795; J3010; J7120; J7121

== ENCOUNTER 2024-09-25 16:40 | Emergency (ER) | payer MEDICAID, SELFPAY ==
[2024-09-25 16:53] VITALS: BP 130/74; PULSE 83; RESP 16; TEMP 37.2; O2SAT 98; BMI 28.5
[2024-09-25 16:59] VITALS: BP 141/90; PULSE 79; O2SAT 98
--- NOTE | 2024-09-25 17:20 | W.ED.GENADLT ---
HPI - General Adult General: Chief complaint: General Medical Stated complaint: 6 days (burden [place]) Time Seen by Provider: 09/25/24 16:51 Related Data Home Medications Medication Instructions Recorded Confirmed 1 tab PO DAILY 09/09/24 09/19/24 Previous Rx's Medication Instructions Recorded ibuprofen 800 mg tablet 800 mg PO TID #45 tabs 09/20/24 Allergies Allergy/AdvReac Type Severity Reaction Status Date / Time benzoin Allergy Severe blistering Verified 09/25/24 16:53 ON LICENSE OF [facility] ED PFSH: Medical History No pertinent past medical history Denies diabetes, hypertension, seizures, DVT/PE PCP: Dr. Cruz ADD (attention deficit disorder) Diagnosed at the age of 4[address] Cruz and is on medication---does not have a therapist. Asthma Diagnosed in fifth grade and is exercise-induced. She uses her albuterol inhaler once a day Surgical History Hx of foot surgery Right foot surgery x2 screws removed-- 05/02/2022 L foot surgery x2 History of surgical removal of ganglion cyst From left wrist performed when she was in the 5th grade History of bunionectomy of left great toe Performed in 2018 History of tonsillectomy At the age of 8 History of myringotomy As a child Family History Grandmother Diabetes paternal Grandfather Diabetes paternal Family/Other Breast cancer maternal great aunt, age at diagnosis unknown Mother Diabetes Denies family history of Colon cancer Ovarian cancer Heart disease Hyperlipidemia Hypertension Uterine cancer Thyroid disease Stroke Course Vital Signs: Vital signs: Vital Signs Temperature 98.9 F 09/25/24 16:53 Pulse Rate 83 09/25/24 16:53 Respiratory Rate 16 09/25/24 16:53 Blood Pressure 130/74 09/25/24 16:53 Pulse Oximetry 98 09/25/24 16:53 Discharge Plan Discharge Condition: Stable Prescriptions: No Action 1 tab PO DAILY ibuprofen 800 mg Tablet 800 mg PO TID Qty: 45 0RF Referrals: Severino Cruz MD [Primary Care Provider] - Coding Level of Care Code ED 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
--- NOTE | 2024-09-25 18:38 | ED_ITS ---
HPI - General Adult 2 General: Chief complaint: General Medical Stated complaint: 6 days (burden [place]) Time Seen by Provider: 09/25/24 16:51 History of Present Illness: Patient presents to the ER just feeling off. She says she just not quite right. Patient had spontaneous vaginal delivery approximately 6 days ago without any complications other than mild labial tear, patient says she did have swelling to her bilateral lower extremities during the as well as some left leg weakness after delivery which was supposedly related to the epidural. Patient said the swelling is better but she still does not does not feel quite right. Patient still taking her vitamin. Related Data Home Medications Medication Instructions Recorded Confirmed 1 tab PO DAILY 09/09/24 09/19/24 Previous Rx's Medication Instructions Recorded ibuprofen 800 mg tablet 800 mg PO TID #45 tabs 09/20/24 sulfamethoxazole 800 1 tab PO BID #14 tabs 09/25/24 mg-trimethoprim 160 mg tablet (Bactrim DS) Allergies Allergy/AdvReac Type Severity Reaction Status Date / Time benzoin Allergy Severe blistering Verified 09/25/24 16:53 Review of Systems 2 General: Reports: 10 or more systems reviewed and unremarkable except in HPI and below PFSH ED 2 PFSH: Medical History No pertinent past medical history Denies diabetes, hypertension, seizures, DVT/PE PCP: Dr. Cruz ADD (attention deficit disorder) Diagnosed at the age of 4[address] Cruz and is on medication---does not have a therapist. Asthma Diagnosed in fifth grade and is exercise-induced. She uses her albuterol inhaler once a day Surgical History Hx of foot surgery Right foot surgery x2 screws removed-- 05/02/2022 L foot surgery x2 History of surgical removal of ganglion cyst From left wrist performed when she was in the 5th grade History of bunionectomy of left great toe Performed in 2018 History of tonsillectomy At the age of 8 History of myringotomy As a child Family History Grandmother Diabetes paternal Grandfather Diabetes paternal Family/Other Breast cancer maternal great aunt, age at diagnosis unknown Mother Diabetes Denies family history of Colon cancer Ovarian cancer Heart disease Hyperlipidemia Hypertension Uterine cancer Thyroid disease Stroke Physical Exam 2 Const: COMMON NORMALS: no acute distress, average body habitus, patient oriented x3, no limitations, healthy appearing, alert and well nourished HENMT: COMMON NORMALS: normocephalic, atraumatic, hearing grossly normal bilaterally, external ears normal, Normal external nose present and moist oral mucous membranes HEAD & SCALP: normocephalic and atraumatic NOSE: Normal external nose present EXTERNAL EAR: Yes external ears normal Neck/C-Spine: COMMON NORMALS: no JVD Chest: COMMONS NORMALS: normal inspection of the chest and normal palpation of entire chest wall Resp: COMMON NORMALS: normal respiratory effort, No retractions, No use of accessory muscles and clear to auscultation bilaterally AUSCULTATION: clear to auscultation bilaterally Cardio: COMMON NORMALS: no JVD, regular rate, regular rhythm, S1 normal heart sound present, S2 normal heart sound present, No gallops present (Cardio), No clicks present (Cardio), No murmurs present (Cardio) and No rub (Cardio) R ATE: regular rate RHYTHM: regular rhythm HEART SOUNDS: S1 normal heart sound present and S2 normal heart sound present GI: COMMON NORMALS: Normal to inspection, nondistended, normoactive bowel sounds present, Soft to palpation, non-tender, No hepatosplenomegaly present and no masses PALPATION: Yes Soft to palpation and Yes No hepatosplenomegaly present Neuro: COMMON NORMALS: patient oriented x3 SENSORIUM/ORIENTATION: Yes alert Course 2 Vital Signs: Vital signs: Vital Signs Temperature 98.9 F 09/25/24 16:53 Pulse Rate 78 09/25/24 18:59 Respiratory Rate 16 09/25/24 16:53 Blood Pressure 139/96 09/25/24 18:59 Pulse Oximetry 98 09/25/24 18:59 MDM - General Adult Medical Decision Making Cussed results with the patient, patient still anemic with a hemoglobin of 7.9 but stable, patient has lots of white cells in her urine so probable infection/post delivery, we will treat with Bactrim DS and see if this helps her feel better. Medical Records I reviewed the patient's medical records. Lab Data I reviewed the patient's lab results. 09/25/24 19:05 09/25/24 19:05 Laboratory Results WBC 10.58 10^3/uL (4.5-13.0) 09/25/24 19:05 RBC 3.54 10^6/uL (3.85-5.65) L 09/25/24 19:05 Hgb 7.90 g/dL (12.4-14.8) L 09/25/24 19:05 Hct 26.8 % (36-47) L 09/25/24 19:05 MCV 75.7 fl (85-98) L 09/25/24 19:05 MCH 22.3 pg (27-33) L 09/25/24 19:05 MCHC 29.5 g/dL (30-55) L 09/25/24 19:05 RDW 17.6 % (12.1-15.1) H 09/25/24 19:05 Plt Count 374 10^3/cmm (157-399) 09/25/24 19:05 MPV 10.7 fL (7.4-10.4) H 09/25/24 19:05 Neut % (Auto) 72.6 % 09/25/24 19:05 Lymph % (Auto) 17.2 % 09/25/24 19:05 [place] % (Auto) 7.1 % 09/25/24 19:05 Eos % (Auto) 1.4 % 09/25/24 19:05 Baso % (Auto) 0.6 % 09/25/24 19:05 Neut # (Auto) 7.68 10^3/uL (1.8-8.0) 09/25/24 19:05 Lymph # (Auto) 1.8 10^3/uL (1.5-6.5) 09/25/24 19:05 [place] # (Auto) 0.8 10^3/uL (0.2-0.9) 09/25/24 19:05 Eos # (Auto) 0.2 10^3/uL (0.0-0.8) 09/25/24 19:05 Baso # (Auto) 0.1 10^3/uL (0.0-0.1) 09/25/24 19:05 Nucleated RBC % (auto) 0.6 % 09/25/24 19:05 Nucleated RBCs # 0.1 /100WBC 09/25/24 19:05 Sodium 142 mmol/L (136-145) 09/25/24 19:05 Potassium 4.1 mmol/L (3.5-5.1) 09/25/24 19:05 Chloride 109 mmol/L (98-107) H 09/25/24 19:05 Carbon Dioxide 20 mmol/L (22-29) L 09/25/24 19:05 Anion Gap 17.1 (5-19) 09/25/24 19:05 BUN 9 mg/dL (6-20) 09/25/24 19:05 Creatinine 0.5 mg/dL (0.5-0.9) 09/25/24 19:05 GFR Calculation 158.9 mL/min (90-130) H 09/25/24 19:05 Glucose 74 mg/dL (65-115) 09/25/24 19:05 Calculated Osmolality 291 mOsm/kg (285-295) 09/25/24 19:05 Calcium 8.5 mg/dL (8.5-10.5) 09/25/24 19:05 Magnesium 2.0 mg/dL (1.7-2.2) 09/25/24 19:05 Total Bilirubin 0.4 mg/dL (0.15-1.2) 09/25/24 19:05 AST 23 U/L (0-32) 09/25/24 19:05 ALT 27 U/L (0-33) 09/25/24 19:05 Alkaline Phosphatase 230 U/L (35-105) H 09/25/24 19:05 Total Protein 6.4 g/dL (6.6-8.7) L 09/25/24 19:05 Albumin 3.5 g/dL (3.5-5.2) 09/25/24 19:05 Globulin 2.9 g/dL (1.3-4.6) 09/25/24 19:05 Urine Color Yellow (Yellow) 09/25/24 18:10 Urine Appearance Cloudy (CLEAR) A 09/25/24 18:10 Urine pH 6.5 (5-7) 09/25/24 18:10 Ur Specific [place] 1.005 (1.005-1.030) 09/25/24 18:10 Urine Protein Trace (Negative) A 09/25/24 18:10 Urine Glucose (UA) Negative (Normal) 09/25/24 18:10 Urine Ketones Negative (Negative) 09/25/24 18:10 Urine Blood 3+ (Negative) A 09/25/24 18:10 Urine Nitrate Negative (Negative) 09/25/24 18:10 Urine Bilirubin Negative (Negative) 09/25/24 18:10 Urine Urobilinogen 0.2 mg/dL (Negative) 09/25/24 18:10 Ur Leukocyte Esterase 3+ (Negative) A 09/25/24 18:10 Urine RBC 0-2 /hpf (0-2) 09/25/24 18:10 Urine WBC >100 /hpf (0-5) H 09/25/24 18:10 Ur Squamous Epith Cells 0-5 /hpf (0-5) 09/25/24 18:10 Amorphous Sediment Not Reportable 09/25/24 18:10 Urine Bacteria 1+ /hpf (NONE) H 09/25/24 18:10 Hyaline Casts 2.05 /lpf 09/25/24 18:10 No radiology studies performed this visit Discharge Plan Discharge Patient Disposition: Home Clinical Impression: Urinary tract infection Qualifiers: Urinary tract infection type: acute cystitis Hematuria presence: with hematuria Qualified Code(s): N30.01 - Acute cystitis with hematuria Anemia Qualifiers: Anemia type: unspecified type Qualified Code(s): D64.9 - Anemia, unspecified Condition: Stable Prescriptions: New sulfamethoxazole-trimethoprim [Bactrim DS] 800-160 mg tablet 1 tab PO BID Qty: 14 0RF No Action 1 tab PO DAILY ibuprofen 800 mg Tablet 800 mg PO TID Qty: 45 0RF Discharge Orders: Discharge ED (Routine); Ordered 09/25/24 Ordered By: Jun Feliciano Referrals: Severino Cruz MD [Primary Care Provider] - 1 week Patient Instructions: Anemia (ED), Urinary Tract Infection - Women Activity Restrictions/Additional Instructions: Please continue your vitamin, and start the antibiotic for your possible urinary tract infection and take as directed. Please follow-up with your family practice physician and/or DIRECTOR CASE MANAGEMENT within the next 7 days for further evaluation treatment. Coding Level of Care Code ED Family Consumer Science Teacher for Tyler Sarabia
[2024-09-25 18:59] VITALS: BP 139/96; PULSE 78; O2SAT 98
[2024-09-25 19:17] LABS: Basophils # 0.1 10^3/uL (0.0-0.1); Basophils % 0.6 %; Eosinophils # 0.2 10^3/uL (0.0-0.8); Eosinophils % 1.4 %; Hematocrit 26.8 % (36-47); Lymphocytes # 1.8 10^3/uL (1.5-6.5); Lymphocytes % 17.2 %; Mean Corpuscular HGB Conc 29.5 g/dL (30-55); Mean Corpuscular Hemoglobin 22.3 pg (27-33); Mean Corpuscular Volume 75.7 fl (85-98); Mean Platelet Volume 10.7 fL (7.4-10.4); Monocytes # 0.8 10^3/uL (0.2-0.9); Monocytes % 7.1 %; Neutrophils # 7.68 10^3/uL (1.8-8.0); Neutrophils % 72.6 %; Nucleated Red Blood Cells # 0.1 /100WBC; Nucleated Red Blood Cells % 0.6 %; Platelet Count 374 10^3/cmm (157-399); Red Blood Count 3.54 10^6/uL (3.85-5.65); Red Cell Distribution Width 17.6 % (12.1-15.1); White Blood Count 10.58 10^3/uL (4.5-13.0)
[2024-09-25 19:23] LABS: Bilirubin Urine Negative (Negative); Blood Urine 3+ (Negative); Glucose Urine UA Negative (Normal); Ketones Urine Negative (Negative); Leukocyte Esterase Urine 3+ (Negative); Nitrate Urine Negative (Negative); Protein Urine Trace (Negative); Specific Gravity, Urine 1.005 (1.005-1.030); Urine Appearance Cloudy (CLEAR); Urine Color Yellow (Yellow); Urobilinogen Urine 0.2 mg/dL (Negative); pH Urine 6.5 (5-7)
[2024-09-25 19:28] LABS: Add Urine Microscopic? YES; Bacteria Urine 1+ /hpf; Hyaline Casts Urine 2.05 /lpf; RBC Urine 0-2 /hpf (0-2); Squamous Epithelial Cell Urine 0-5 /hpf (0-5); WBC Urine >100 /hpf (0-5)
[2024-09-25 19:36] LABS: Add Urine Culture? Yes
[2024-09-25 19:50] LABS: Alanine Aminotransferase 27 U/L (0-33); Albumin Level 3.5 g/dL (3.5-5.2); Alkaline Phosphatase 230 U/L (35-105); Anion Gap 17.1 (5-19); Aspartate Amino Transferase 23 U/L (0-32); Blood Urea Nitrogen 9 mg/dL (6-20); Calcium 8.5 mg/dL (8.5-10.5); Carbon Dioxide 20 mmol/L (22-29); Chloride 109 mmol/L (98-107); Creatinine Clr Calc Pharmacy 173.2771; Globulin 2.9 g/dL (1.3-4.6); Glomerular Filtration Rate 158.9 mL/min (90-130); Glucose 74 mg/dL (65-115); Osmolality Calculated 291 mOsm/kg (285-295); Potassium 4.1 mmol/L (3.5-5.1); Sodium 142 mmol/L (136-145); Total Bilirubin 0.4 mg/dL (0.15-1.2); Total Protein 6.4 g/dL (6.6-8.7)
[2024-09-25] MEDS: sulfamethoxazole-trimeth DS 160-800 mg Tablet 1 TAB PO (20:41)
== END 2024-09-25 20:30 | disposition home or self-care (01) ==
PROVIDERS: Family Medicine; Emergency Provider Emergency Medicine; PCP Family Medicine
DX: N30.01 Acute cystitis with hematuria (principal); D64.9 Anemia, unspecified
CPT/HCPCS: 36415; 80053; 81001; 83735; 85025; 87086; 99283

== ENCOUNTER 2024-09-29 20:19 | Emergency (ER) | payer MEDICAID, SELFPAY ==
[2024-09-29 20:27] VITALS: BP 133/81; PULSE 100; RESP 17; TEMP 36.7; O2SAT 99; BMI 26.5
[2024-09-29 20:58] LABS: Basophils # 0.1 10^3/uL (0.0-0.1); Basophils % 0.5 %; Eosinophils # 0.1 10^3/uL (0.0-0.8); Hematocrit 33.1 % (36-47); Lymphocytes # 1.1 10^3/uL (1.5-6.5); Lymphocytes % 9.7 %; Mean Corpuscular HGB Conc 29.9 g/dL (30-55); Mean Corpuscular Hemoglobin 22.8 pg (27-33); Mean Corpuscular Volume 76.3 fl (85-98); Mean Platelet Volume 10.4 fL (7.4-10.4); Monocytes # 0.7 10^3/uL (0.2-0.9); Monocytes % 5.9 %; Neutrophils # 9.44 10^3/uL (1.8-8.0); Neutrophils % 82.6 %; Nucleated Red Blood Cells % 0 %; Platelet Count 468 10^3/cmm (157-399); Red Blood Count 4.34 10^6/uL (3.85-5.65); Red Cell Distribution Width 17.8 % (12.1-15.1); White Blood Count 11.44 10^3/uL (4.5-13.0)
--- NOTE | 2024-09-29 21:17 | W.ED.FEVER ---
HPI - Fever General: Chief Complaint: Fever Stated Complaint: fever 101.5, nausa Time Seen by Provider: 09/29/24 21:08 History of Present Illness: Patient resents to the ER with complaints of a fever. She was 101.5 today. Patient took 800 mg ibuprofen before arrival to the ER. Patient is x 1 week. Patient's been on Bactrim for 4 days for possible UTI. Patient does complain of lower abdominal pain and feeling hot. Patient denies any nausea vomiting diarrhea vaginal odor. Patient is breast-feeding. Related Data Home Medications Medication Instructions Recorded Confirmed 1 tab PO DAILY 09/09/24 09/19/24 Previous Rx's Medication Instructions Recorded ibuprofen 800 mg tablet 800 mg PO TID #45 tabs 09/20/24 sulfamethoxazole 800 1 tab PO BID #14 tabs 09/25/24 mg-trimethoprim 160 mg tablet (Bactrim DS) Allergies Allergy/AdvReac Type Severity Reaction Status Date / Time benzoin Allergy Severe blistering Verified 09/25/24 16:53 Review of Systems General: Reports: 10 or more systems reviewed and unremarkable except in HPI and below PFSH ED PFSH: Medical History No pertinent past medical history Denies diabetes, hypertension, seizures, DVT/PE PCP: Dr. Anthony LEONARD (attention deficit disorder) Diagnosed at the age of 4[address] Cruz and is on medication---does not have a therapist. Asthma Diagnosed in fifth grade and is exercise-induced. She uses her albuterol inhaler once a day Surgical History Hx of foot surgery Right foot surgery x2 screws removed-- 05/02/2022 L foot surgery x2 History of surgical removal of ganglion cyst From left wrist performed when she was in the 5th grade History of bunionectomy of left great toe Performed in 2018 History of tonsillectomy At the age of 8 History of myringotomy As a child Family History Grandmother Diabetes paternal Grandfather Diabetes paternal Family/Other Breast cancer maternal great aunt, age at diagnosis unknown Mother Diabetes Denies family history of Colon cancer Ovarian cancer Heart disease Hyperlipidemia Hypertension Uterine cancer Thyroid disease Stroke Physical Exam Const: COMMON NORMALS: no acute distress, average body habitus, patient oriented x3, no limitations, healthy appearing, alert and well nourished HENMT: COMMON NORMALS: normocephalic, atraumatic, hearing grossly normal bilaterally, external ears normal, Normal external nose present and moist oral mucous membranes HEAD & SCALP: normocephalic and atraumatic NOSE: Normal external nose present EXTERNAL EAR: Yes external ears normal Neck/C-Spine: COMMON NORMALS: no JVD Chest: COMMONS NORMALS: normal inspection of the chest and normal palpation of entire chest wall Resp: COMMON NORMALS: normal respiratory effort, No retractions, No use of accessory muscles and clear to auscultation bilaterally AUSCULTATION: clear to auscultation bilaterally Cardio: COMMON NORMALS: no JVD, regular rate, regular rhythm, S1 normal heart sound present, S2 normal heart sound present, No gallops present (Cardio), No clicks present (Cardio), No murmurs present (Cardio) and No rub (Cardio) RATE: regular rate RHYTHM: regular rhythm HEART SOUNDS: S1 normal heart sound present and S2 normal heart sound present GI: COMMON NORMALS: Normal to inspection, nondistended, normoactive bowel sounds present, Soft to palpation, non-tender, No hepatosplenomegaly present and no masses PALPATION: Yes Soft to palpation and Yes No hepatosplenomegaly present Neuro: COMMON NORMALS: patient oriented x3 SENSORIUM/ORIENTATION: Yes alert Course Vital Signs: Vital signs: Vital Signs Temperature 98.1 F 09/29/24 20:27 Pulse Rate 79 09/30/24 00:43 Respiratory Rate 14 09/29/24 23:59 Blood Pressure 138/78 09/30/24 00:43 Pulse Oximetry 94 09/30/24 00:43 Oxygen Delivery Me thod Room Air 09/30/24 00:43 MDM - Fever Medical Decision Making Lab work was reviewed, white count is normal, hemoglobin is increasing and 9.9, ultrasound was reviewed which showed possible retained products of conception, Dr. Otero was consulted who said Dr. Bella usually takes his own call for his own patient. Dr. Bella is consulted and these results was told to him. He said patient call his office Tuesday morning for a probable appointment on Tuesday or Tuesday for him to further eval and treat. Medical Records I reviewed the patient's medical records. Lab Data I reviewed the patient's lab results. 09/29/24 20:42 09/29/24 20:42 Radiology Impressions Transvaginal US 09/29/24 22:50 IMPRESSION: As above Laboratory Results WBC 11.44 10^3/uL (4.5-13.0) 09/29/24 20:42 RBC 4.34 10^6/uL (3.85-5.65) 09/29/24 20:42 Hgb 9.90 g/dL (12.4-14.8) L 09/29/24 20:42 Hct 33.1 % (36-47) L 09/29/24 20:42 MCV 76.3 fl (85-98) L 09/29/24 20:42 MCH 22.8 pg (27-33) L 09/29/24 20:42 MCHC 29.9 g/dL (30-55) L 09/29/24 20:42 RDW 17.8 % (12.1-15.1) H 09/29/24 20:42 Plt Count 468 10^3/cmm (157-399) H 09/29/24 20:42 MPV 10.4 fL (7.4-10.4) 09/29/24 20:42 Neut % (Auto) 82.6 % 09/29/24 20:42 Lymph % (Auto) 9.7 % 09/29/24 20:42 [place] % (Auto) 5.9 % 09/29/24 20:42 Eos % (Auto) 1.0 % 09/29/24 20:42 Baso % (Auto) 0.5 % 09/29/24 20:42 Neut # (Auto) 9.44 10^3/uL (1.8-8.0) H 09/29/24 20:42 Lymph # (Auto) 1.1 10^3/uL (1.5-6.5) L 09/29/24 20:42 [place] # (Auto) 0.7 10^3/uL (0.2-0.9) 09/29/24 20:42 Eos # (Auto) 0.1 10^3/uL (0.0-0.8) 09/29/24 20:42 Baso # (Auto) 0.1 10^3/uL (0.0-0.1) 09/29/24 20:42 Nucleated RBC % (auto) 0 % 09/29/24 20:42 Nucleated RBCs # 0.0 /100WBC 09/29/24 20:42 Sodium 139 mmol/L (136-145) 09/29/24 20:42 Potassium 4.1 mmol/L (3.5-5.1) 09/29/24 20:42 Chloride 106 mmol/L (98-107) 09/29/24 20:42 Carbon Dioxide 18 mmol/L (22-29) L 09/29/24 20:42 Anion Gap 19.1 (5-19) H 09/29/24 20:42 BUN 10 mg/dL (6-20) 09/29/24 20:42 Creatinine 0.8 mg/dL (0.5-0.9) 09/29/24 20:42 GFR Calculation 92.4 mL/min (90-130) 09/29/24 20:42 Glucose 101 mg/dL (65-115) 09/29/24 20:42 Calculated Osmolality 287 mOsm/kg (285-295) 09/29/24 20:42 Calcium 8.8 mg/dL (8.5-10.5) 09/29/24 20:42 Magnesium 2.1 mg/dL (1.7-2.2) 09/29/24 20:42 Total Bilirubin 0.4 mg/dL (0.15-1.2) 09/29/24 20:42 AST 30 U/L (0-32) 09/29/24 20:42 ALT 28 U/L (0-33) 09/29/24 20:42 Alkaline Phosphatase 237 U/L (35-105) H 09/29/24 20:42 Total Protein 7.3 g/dL (6.6-8.7) 09/29/24 20:42 Albumin 4.0 g/dL (3.5-5.2) 09/29/24 20:42 Globulin 3.3 g/dL (1.3-4.6) 09/29/24 20:42 Urine Color [place] (Yellow) A 09/29/24 21:22 Urine Appearance Cloudy (CLEAR) A 09/29/24 21:22 Urine pH 6.0 (5-7) 09/29/24 21:22 Ur Specific [place] 1.025 (1.005-1.030) 09/29/24 21:22 Urine Protein 2+ (Negative) A 09/29/24 21:22 Urine Glucose (UA) Negative (Normal) 09/29/24 21:22 Urine Ketones Negative (Negative) 09/29/24 21:22 Urine Blood 3+ (Negative) A 09/29/24 21:22 Urine Nitrate Negative (Negative) 09/29/24 21: Urine Bilirubin Negative (Negative) 09/29/24 21:22 Urine Urobilinogen 1.0 mg/dL (Negative) 09/29/24 21:22 Ur Leukocyte Esterase 3+ (Negative) A 09/29/24 21: Urine RBC >100 /hpf (0-2) H 09/29/24 21:22 Urine WBC >100 /hpf (0-5) H 09/29/24 21:22 Ur Squamous Epith Cells 0-5 /hpf (0-5) 09/29/24 21:22 Amorphous Sediment Not Reportable 09/29/24 21:22 Urine Bacteria 1+ /hpf (NONE) H 09/29/24 21:22 Hyaline Casts 2.87 /lpf 09/29/24 21:22 Coronavirus (PCR) Negative (Negative) 09/29/24 21:15 Influenza A (PCR) Negative (Negative) 09/29/24 21:15 Influenza Type B (PCR) Negative (Negative) 09/29/24 21:15 RSV (PCR) Negative (Negative) 09/29/24 21:15 All radiology interpretation(s) finalized by discharge Discharge Plan Discharge Patient Disposition: Home Clinical Impression: fever Condition: Stable Prescriptions: No Action 1 tab PO DAILY ibuprofen 800 mg Tablet 800 mg PO TID Qty: 45 0RF sulfamethoxazole-trimethoprim [Bactrim DS] 800-160 mg tablet 1 tab PO BID Qty: 14 0RF Discharge Orders: Discharge ED (Routine); Ordered 09/30/24 Ordered By: Jun Feliciano Referrals: Severino Cruz MD [Primary Care Provider] - Activity Restrictions/Additional Instructions: Your ultrasound showed you may have retained products of conception. Dr. Bella was notified he said this may just be normal clotting from delivery. He does want you to call his office Tuesday morning to arrange a follow-up probably on Tuesday or Tuesday for further evaluation treatment. If your symptoms worsen in the meantime please feel free to return to the ER. Coding Level of Care Code ED Sales Recruiter for Tyler Sarabia
[2024-09-29 21:24] LABS: Alanine Aminotransferase 28 U/L (0-33); Alkaline Phosphatase 237 U/L (35-105); Anion Gap 19.1 (5-19); Aspartate Amino Transferase 30 U/L (0-32); Blood Urea Nitrogen 10 mg/dL (6-20); Calcium 8.8 mg/dL (8.5-10.5); Carbon Dioxide 18 mmol/L (22-29); Chloride 106 mmol/L (98-107); Creatinine Clr Calc Pharmacy 104.7349; Globulin 3.3 g/dL (1.3-4.6); Glomerular Filtration Rate 92.4 mL/min (90-130); Glucose 101 mg/dL (65-115); Magnesium 2.1 mg/dL (1.7-2.2); Osmolality Calculated 287 mOsm/kg (285-295); Potassium 4.1 mmol/L (3.5-5.1); Sodium 139 mmol/L (136-145); Total Bilirubin 0.4 mg/dL (0.15-1.2); Total Protein 7.3 g/dL (6.6-8.7)
[2024-09-29 21:34] LABS: Bilirubin Urine Negative (Negative); Blood Urine 3+ (Negative); Glucose Urine UA Negative (Normal); Ketones Urine Negative (Negative); Leukocyte Esterase Urine 3+ (Negative); Nitrate Urine Negative (Negative); Protein Urine 2+ (Negative); Specific Gravity, Urine 1.025 (1.005-1.030); Urine Appearance Cloudy (CLEAR)
[2024-09-29 21:36] LABS: Add Urine Microscopic? YES; Bacteria Urine 1+ /hpf; Hyaline Casts Urine 2.87 /lpf; RBC Urine >100 /hpf (0-2); Squamous Epithelial Cell Urine 0-5 /hpf (0-5); WBC Urine >100 /hpf (0-5)
[2024-09-29 21:37] LABS: Urine Color Orange (Yellow)
[2024-09-29 21:38] LABS: Add Urine Culture? Yes
[2024-09-29 21:59] LABS: Covid PCR NEGATIVE (Negative); Influenza A NEGATIVE (Negative); Influenza B NEGATIVE (Negative); Respiratory Syncytial Virus Ce NEGATIVE (Negative)
[2024-09-29 22:05] VITALS: BP 123/74; PULSE 86; RESP 14; O2SAT 95
--- NOTE | 2024-09-29 22:50 | USR_ITS ---
PROCEDURE INFORMATION: Exam: US Pelvis, Transvaginal, Non-Obstetric Exam date and time: 09/29/2024 10:55 PM Age: 18 years old Clinical indication: Other: Fever; Additional info: 7 days , fever, TECHNIQUE: Imaging protocol: Real-time transvaginal pelvic (non-obstetric) ultrasound with image documentation. Transvaginal imaging was used for better evaluation of the endometrium, adnexa, and/or cervix. COMPARISON: US renal BI* [id number] 06/01/2024 12:57 PM FINDINGS: Uterus: There is irregularity of the endometrium with a focal echogenic area with increased Doppler flow which may relate to an area of retained products of conception. Additional etiologies AVM although clinical correlation for instrumentation needs to be made. Diffuse heterogenous and enlarged appearance of the uterus related to a recently gravid uterus. Right ovary/adnexa: Preserved flow to the right ovary. Left ovary/adnexa: The left ovary cannot be definitively visualized. Urinary bladder: Not definitively visualized. Intraperitoneal space: No free fluid. US/US transvaginal [id number] IMPRESSION: As above
[2024-09-29] MEDS: ondansetron 4 MG Tablet PO (23:58)
[2024-09-29 23:59] VITALS: BP 141/72; PULSE 96; RESP 14; O2SAT 93
[2024-09-30 00:43] VITALS: BP 138/78; PULSE 79; O2SAT 94
== END 2024-09-30 01:19 | disposition home or self-care (01) ==
PROVIDERS: Emergency Provider Emergency Medicine; PCP Family Medicine
DX: O86.4 Pyrexia of unknown origin following delivery (principal); Z11.52 Encounter for screening for COVID-19
CPT/HCPCS: 0241U; 36415; 76830; 80053; 81001; 83735; 85025; 87086; 99284; Q0162

== ENCOUNTER → 2024-10-08 14:54 | Outpatient (BNVA) | payer MEDICAID, SELFPAY | PROVIDERS: PCP Family Medicine | DX: R39.9 Unspecified symptoms and signs involving the genitourinary system (principal) | CPT/HCPCS: 81000 ==

== ENCOUNTER 2024-12-23 12:15 | Emergency (ER) | payer MEDICAID, SELFPAY ==
[2024-12-23 12:18] VITALS: BP 112/66; PULSE 88; RESP 14; TEMP 36.8; O2SAT 99; BMI 21.9
--- NOTE | 2024-12-23 13:02 | W.ED.ABDPA2 ---
HPI - Abdominal Pain General: Chief Complaint: Abdominal Pain Stated Complaint: R side abd pain, nausea Time Seen by Provider: 12/23/24 13:02 History of Present Illness: This patient is a 19 year old presenting with right flank pain. She was seen at urgent care but didn't feel like they knew what what going on so came here. The pain started a few days ago and has moved around to her back. It is worse when she stands up. She denies urinary symptoms. She does admit to a history of constipation. She is 3 months and on control. She is breast feeding. No vomiting. No fever. She still has her gallbladder and appendix. Her recent delivery was vaginal with no complications. Related Data Home Medications ?Medication ?Instructions ?Recorded ?Confirmed valacyclovir 500 mg tablet 500 mg PO DAILY PRN Cold Sores 10/08/24 12/23/24 ibuprofen 800 mg tablet 800 mg PO TID PRN Pain 12/23/24 12/23/24 norethindrone (contraceptive) 0.35 0.35 mg PO DAILY 12/23/24 12/23/24 mg tablet Previous Rx's ?Medication ?Instructions ?Recorded amoxicillin 875 mg-potassium 1 tab PO BID #20 tabs 12/23/24 clavulanate 125 mg tablet lactulose 10 gram oral packet 10 g PO DAILY PRN constipation #15 12/23/24 ea Allergies Allergy/AdvReac Type Severity Reaction Status Date / Time benzoin Allergy Severe blistering Verified 12/23/24 10:50 [facility] ED PFSH: Medical History No pertinent past medical history Denies diabetes, hypertension, seizures, DVT/PE PCP: Dr. Cruz ADD (attention deficit disorder) Diagnosed at the age of 4[address] Cruz and is on medication---does not have a therapist. Asthma Diagnosed in fifth grade and is exercise-induced. She uses her albuterol inhaler once a day Surgical History Hx of foot surgery Right foot surgery x2 screws removed-- 05/02/2022 L foot surgery x2 History of surgical removal of ganglion cyst From left wrist performed when she was in the 5th grade History of bunionectomy of left great toe Performed in 2018 History of tonsillectomy At the age of 8 History of myringotomy As a child Family History Grandmother Diabetes paternal Grandfather Diabetes paternal Family/Other Breast cancer maternal great aunt, age at diagnosis unknown Mother Diabetes Denies family history of Colon cancer Ovarian cancer Heart disease Hyperlipidemia Hypertension Uterine cancer Thyroid disease Stroke Social History Smoking and tobacco/nicotine status: never used tobacco/nicotine Physical Exam Const: COMMON NORMALS: no acute distress, patient oriented x3, no limitations and alert GENERAL APPEARANCE: cooperative and comfortable HENMT: HEAD & SCALP: normal to inspection FACE & SINUS: normal facial exam Eye: GENERAL EYE: appearance normal, both eyes and all related structures Neck/C-Spine: COMMON NORMALS: supple, no meningeal signs and no JVD Chest: COMMONS NORMALS: normal inspection of the chest Resp: COMMON NORMALS: normal respiratory effort, No use of accessory muscles and clear to auscultation bilaterally AUSCULTATION: clear to auscultation bilaterally Cardio: COMMON NORMALS: no JVD, regular rate, regular rhythm and No murmurs present (Cardio) RATE: regular rate RHYTHM: regular rhythm GI: COMMON NORMALS: Normal to inspection, nondistended, normoactive bowel sounds present and Soft to palpation INSPECTION: Yes normal to inspection AUSCULTATION: Yes normoactive bowel sounds PALPATION: Yes Soft to palpation and Yes Tenderness to palpation present (GI) (positive rosvings sign) Details: LLQ and RLQ Back/Pelvis: COMMON NORMALS: thoracic and lumbar spine normal to inspection Extremity: COMMON NORMALS: normal to inspection Neuro: COMMON NORMALS: patient oriented x3, moves all extremities, no focal motor deficits and no sensory deficits noted SENSORIUM/ORIENTATION: Yes alert MENINGEAL SIGNS: Yes no meningeal signs Psych: COMMON NORMALS: mental status grossly normal, cooperative and normal affect Skin: COMMON NORMALS: no rashes or lesions noted and turgor normal GENERAL SKIN EXAM: no rashes or lesions noted and turgor normal Course Vital Signs: Vital signs: Vital Signs Temperature 98.2 F 12/23/24 12:18 Pulse Rate 64 12/23/24 16:33 Respiratory Rate 14 12/23/24 12:18 Blood Pressure 96/68 12/23/24 16:33 Pulse Oximetry 98 12/23/24 16:33 Oxygen Delivery Me thod Room Air 12/23/24 12:18 MDM - Abdominal Pain Medical Decision Making Presentation concerning for appendicitis - also consider gallbladder, kidney stone, ovarian pathology. CT with no findings. There is a fair amount of stool in the colon and also a 1 mm stone in the right kidney. Lab Data 12/23/24 13:48 12/23/24 13:48 Labs/Radiology: Radiology Impressions Abdomen/Pelvis CT 12/23/24 13:10 IMPRESSION: 1. No evidence of acute abnormality in the abdomen or pelvis. Laboratory Results WBC 5.00 10^3/uL (4.5-13.0) 12/23/24 13:48 RBC 5.13 10^6/uL (3.85-5.65) 12/23/24 13:48 Hgb 11.20 g/dL (12.4-14.8) L 12/23/24 13:48 Hct 37.6 % (36-47) 12/23/24 13:48 MCV 73.3 fl (85-98) L 12/23/24 13:48 MCH 21.8 pg (27-33) L 12/23/24 13:48 MCHC 29.8 g/dL (30-55) L 12/23/24 13:48 RDW 18.5 % (12.1-15.1) H 12/23/24 13:48 Plt Count 238 10^3/cmm (157-399) 12/23/24 13:48 MPV 10.9 fL (7.4-10.4) H 12/23/24 13:48 Neut % (Auto) 58.2 % 12/23/24 13:48 Lymph % (Auto) 30.6 % 12/23/24 13:48 [place] % (Auto) 8.8 % 12/23/24 13:48 Eos % (Auto) 1.2 % 12/23/24 13:48 Baso % (Auto) 1.0 % 12/23/24 13:48 Neut # (Auto) 2.91 10^3/uL (1.8-8.0) 12/23/24 13:48 Lymph # (Auto) 1.5 10^3/uL (1.5-6.5) 12/23/24 13:48 [place] # (Auto) 0.4 10^3/uL (0.2-0.9) 12/23/24 13:48 Eos # (Auto) 0.1 10^3/uL (0.0-0.8) 12/23/24 13:48 Baso # (Auto) 0.1 10^3/uL (0.0-0.1) 12/23/24 13:48 Nucleated RBC % (auto) 0 % 12/23/24 13:48 Nucleated RBCs # 0.0 /100WBC 12/23/24 13:48 Sodium 139 mmol/L (136-145) 12/23/24 13:48 Potassium 4.5 mmol/L (3.5-5.1) 12/23/24 13:48 Chloride 103 mmol/L (98-107) 12/23/24 13:48 Carbon Dioxide 25 mmol/L (22-29) 12/23/24 13:48 Anion Gap 15.5 (5-19) 12/23/24 13:48 BUN 10 mg/dL (6-20) 12/23/24 13:48 Creatinine 0.6 mg/dL (0.5-0.9) 12/23/24 13:48 GFR Calculation 127.5 mL/min (90-130) 12/23/24 13:48 Glucose 88 mg/dL (65-115) 12/23/24 13:48 Calculated Osmolality 286 mOsm/kg (285-295) 12/23/24 13:48 Calcium 9.6 mg/dL (8.5-10.5) 12/23/24 13:48 Total Bilirubin 0.5 mg/dL (0.15-1.2) 12/23/24 13:48 AST 26 U/L (0-32) 12/23/24 13:48 ALT 39 U/L (0-33) H 12/23/24 13:48 Alkaline Phosphatase 114 U/L (35-105) H 12/23/24 13:48 Total Protein 7.2 g/dL (6.6-8.7) 12/23/24 13:48 Albumin 4.7 g/dL (3.5-5.2) 12/23/24 13:48 Globulin 2.5 g/dL (1.3-4.6) 12/23/24 13:48 Ser , Semi-Qnt < 1.00 mIU/mL 12/23/24 13:48 Urine Color Yellow (Yellow) 12/23/24 12:32 Urine Appearance Clear (CLEAR) 12/23/24 12:32 Urine pH 7.5 (5-7) 12/23/24 12:32 Ur Specific [place] 1.011 (1.005-1.030) 12/23/24 12:32 Urine Protein Negative (Negative) 12/23/24 12:32 Urine Glucose (UA) Negative (Normal) 12/23/24 12:32 Urine Ketones Negative (Negative) 12/23/24 12:32 Urine Blood Negative (Negative) 12/23/24 12:32 Urine Nitrate Negative (Negative) 12/23/24 12:32 Urine Bilirubin Negative (Negative) 12/23/24 12:32 Urine Urobilinogen 0.2 mg/dL (Negative) 12/23/24 12:32 Ur Leukocyte Esterase 2+ (Negative) A 12/23/24 12:32 Urine RBC 0-2 /hpf (0-2) 12/23/24 12:32 Urine WBC 6-10 /hpf (0-5) 12/23/24 12:32 Ur Squamous Epith Cells 0-5 /hpf (0-5) 12/23/24 12:32 Amorphous Sediment Not Reportable 12/23/24 12:32 Urine Bacteria None seen /hpf (NONE) 12/23/24 12:32 Hyaline Casts 0-4 /lpf H 12/23/24 12:32 All radiology interpretation(s) finalized by discharge Discharge Plan Discharge Patient Disposition: Home Clinical Impression: Right lower quadrant abdominal pain, Constipation, Right nephrolithiasis Condition: Stable Prescriptions: New lactulose 10 gram packet 10 g PO DAILY PRN (Reason: constipation) Qty: 15 0RF No Action amoxicillin-pot clavulanate 875-125 mg tablet 1 tab PO BID Qty: 20 0RF valacyclovir 500 mg tablet 500 mg PO DAILY PRN (Reason: Cold Sores) norethindrone (contraceptive) 0.35 mg Tablet 0.35 mg PO DAILY ibuprofen 800 mg tablet 800 mg PO TID PRN (Reason: Pain) Discharge Orders: Discharge ED (Routine); Ordered 12/23/24 Ordered By: Sandra Mensah Referrals: Severino Cruz MD [Primary Care Provider] - Discharge Diet: Usual diet Discharge Activity: Resume usual activity Patient Instructions: Abdominal Pain (ED), Opioid Safety, Pain Management Activity Restrictions/Additional Instructions: You can use Miralax up to every 2 hour until you have a bowel movement - then just use as needed. Drink plenty of fluids. Follow up with your doctor if ongoing symptoms and return to the ED if worse in any way. Print Language: Colombian Coding Level of Care Code ED Dry End Tester for Tyler Sarabia
--- NOTE | 2024-12-23 13:10 | CTR_ITS ---
PROCEDURE INFORMATION: Exam: CT Abdomen And Pelvis With Contrast Exam date and time: 12/23/2024 1:18 PM Age: 19 years old Clinical indication: Abdominal pain; Localized; Right lower quadrant (rlq); Additional info: Rlq pain TECHNIQUE: Imaging protocol: Computed tomography of the abdomen and pelvis with contrast. Radiation optimization: All CT scans at this facility use at least one of these dose optimization techniques: automated exposure control; mA and/or kV adjustment per patient size (includes targeted exams where dose is matched to clinical indication); or iterative reconstruction. Contrast material: OMNIPAQUE 350; Contrast volume: 100 ml; Contrast route: INTRAVENOUS (IV); COMPARISON: CT abdomen pelvis w con* [id number] 11/03/2022 11:14 PM RADIATION DOSE METRICS: Total DLP (mGy-cm): 349.85 FINDINGS: Lungs: Subsegmental bibasilar atelectasis. The visualized lung bases are otherwise grossly clear. Diaphragm: No evidence of diaphragmatic defect. Liver: No focal hepatic lesion. Gallbladder and biliary ducts: Unremarkable. No intra-hepatic or extra-hepatic biliary dilatation. Pancreas: Unremarkable. Spleen: Unremarkable. Adrenal glands: Unremarkable. Kidneys and ureters: Nonobstructive punctate 1 mm right-sided renal stone. Otherwise no renal parenchymal abnormality. No hydronephrosis or ureteral stone. Stomach and bowel: No evidence of bowel obstruction or perienteric inflammatory changes. Appendix: Normal appendix. Intraperitoneal space: No evidence of free air or fluid collection. Vasculature: No aneurysmal dilatation or dissection of the abdominal aorta. The celiac trunk, SMA and LYDIA are grossly patent. No evidence of IVC thrombus. The portal vein, SMV and splenic veins are grossly patent. Lymph nodes: No adenopathy. Urinary bladder: Grossly unremarkable. Reproductive: Grossly unremarkable. Bones/joints: No evidence of acute fracture or aggressive osseous lesion. Soft tissues: No evidence of fluid collection or hematoma in the superficial soft tissues. CT/CT abdomen pelvis w con* [id number] IMPRESSION: 1. No evidence of acute abnormality in the abdomen or pelvis.
[2024-12-23 13:53] LABS: Basophils # 0.1 10^3/uL (0.0-0.1); Eosinophils # 0.1 10^3/uL (0.0-0.8); Eosinophils % 1.2 %; Hematocrit 37.6 % (36-47); Lymphocytes # 1.5 10^3/uL (1.5-6.5); Lymphocytes % 30.6 %; Mean Corpuscular HGB Conc 29.8 g/dL (30-55); Mean Corpuscular Hemoglobin 21.8 pg (27-33); Mean Corpuscular Volume 73.3 fl (85-98); Mean Platelet Volume 10.9 fL (7.4-10.4); Monocytes # 0.4 10^3/uL (0.2-0.9); Monocytes % 8.8 %; Neutrophils # 2.91 10^3/uL (1.8-8.0); Neutrophils % 58.2 %; Nucleated Red Blood Cells % 0 %; Platelet Count 238 10^3/cmm (157-399); Red Blood Count 5.13 10^6/uL (3.85-5.65); Red Cell Distribution Width 18.5 % (12.1-15.1)
[2024-12-23 13:54] LABS: Bilirubin Urine Negative (Negative); Blood Urine Negative (Negative); Glucose Urine UA Negative (Normal); Ketones Urine Negative (Negative); Leukocyte Esterase Urine 2+ (Negative); Nitrate Urine Negative (Negative); Protein Urine Negative (Negative); Specific Gravity, Urine 1.011 (1.005-1.030); Urine Appearance Clear (CLEAR); Urine Color Yellow (Yellow); Urobilinogen Urine 0.2 mg/dL (Negative); pH Urine 7.5 (5-7)
[2024-12-23 13:59] LABS: Add Urine Microscopic? YES; Bacteria Urine None Seen /hpf; Hyaline Casts Urine 0-4 /lpf; RBC Urine 0-2 /hpf (0-2); Squamous Epithelial Cell Urine 0-5 /hpf (0-5)
[2024-12-23 14:10] LABS: Alanine Aminotransferase 39 U/L (0-33); Albumin Level 4.7 g/dL (3.5-5.2); Alkaline Phosphatase 114 U/L (35-105); Anion Gap 15.5 (5-19); Aspartate Amino Transferase 26 U/L (0-32); Blood Urea Nitrogen 10 mg/dL (6-20); Calcium 9.6 mg/dL (8.5-10.5); Carbon Dioxide 25 mmol/L (22-29); Chloride 103 mmol/L (98-107); Creatinine Clr Calc Pharmacy 127.3536; Globulin 2.5 g/dL (1.3-4.6); Glomerular Filtration Rate 127.5 mL/min (90-130); Glucose 88 mg/dL (65-115); Osmolality Calculated 286 mOsm/kg (285-295); Potassium 4.5 mmol/L (3.5-5.1); Sodium 139 mmol/L (136-145); Total Bilirubin 0.5 mg/dL (0.15-1.2); Total Protein 7.2 g/dL (6.6-8.7)
[2024-12-23 14:11] LABS: HCG Quantitative < 1.00 mIU/mL
[2024-12-23 14:22] VITALS: PULSE 69; O2SAT 95
[2024-12-23] MEDS: iohexol 350 mg/mL 500 mL Btl (per mL) IV (14:23)
[2024-12-23 14:52] VITALS: PULSE 67; O2SAT 96
[2024-12-23 15:22] VITALS: BP 113/58
[2024-12-23 15:52] VITALS: BP 112/65
[2024-12-23 16:33] VITALS: BP 96/68; PULSE 64; O2SAT 98
== END 2024-12-23 16:34 | disposition home or self-care (01) ==
PROVIDERS: Emergency Provider Emergency Medicine; PCP Family Medicine
DX: R10.31 Right lower quadrant pain (principal); K59.00 Constipation, unspecified; N20.0 Calculus of kidney
CPT/HCPCS: 36415; 74177; 80053; 81000; 81001; 84702; 85025; 99285

== ENCOUNTER 2025-01-16 19:18 | Emergency (ER) | payer MEDICAID, SELFPAY ==
[2025-01-16 19:20] VITALS: BP 132/84; PULSE 99; RESP 16; TEMP 37.1; O2SAT 97; BMI 21.7
[2025-01-16 19:39] LABS: Basophils # 0.1 10^3/uL (0.0-0.1); Basophils % 0.9 %; Eosinophils # 0.1 10^3/uL (0.0-0.8); Eosinophils % 1.3 %; Hematocrit 36.2 % (36-47); Lymphocytes # 2.1 10^3/uL (1.5-6.5); Lymphocytes % 38.2 %; Mean Corpuscular HGB Conc 30.1 g/dL (30-55); Mean Corpuscular Hemoglobin 22.8 pg (27-33); Mean Corpuscular Volume 75.6 fl (85-98); Monocytes # 0.4 10^3/uL (0.2-0.9); Monocytes % 6.9 %; Neutrophils # 2.82 10^3/uL (1.8-8.0); Neutrophils % 52.5 %; Nucleated Red Blood Cells % 0 %; Platelet Count 243 10^3/cmm (157-399); Red Blood Count 4.79 10^6/uL (3.85-5.65); Red Cell Distribution Width 18.7 % (12.1-15.1); White Blood Count 5.37 10^3/uL (4.5-13.0)
[2025-01-16 19:57] LABS: Alanine Aminotransferase 41 U/L (0-33); Albumin Level 4.6 g/dL (3.5-5.2); Alkaline Phosphatase 111 U/L (35-105); Anion Gap 12.8 (5-19); Aspartate Amino Transferase 27 U/L (0-32); Blood Urea Nitrogen 11 mg/dL (6-20); Calcium 9.1 mg/dL (8.5-10.5); Carbon Dioxide 26 mmol/L (22-29); Chloride 105 mmol/L (98-107); Creatinine Clr Calc Pharmacy 126.9258; Globulin 2.5 g/dL (1.3-4.6); Glomerular Filtration Rate 127.5 mL/min (90-130); Glucose 96 mg/dL (65-115); Lipase 33 U/L (13-60); Osmolality Calculated 289 mOsm/kg (285-295); Potassium 3.8 mmol/L (3.5-5.1); Sodium 140 mmol/L (136-145); Total Bilirubin 0.3 mg/dL (0.15-1.2); Total Protein 7.1 g/dL (6.6-8.7)
--- NOTE | 2025-01-16 20:00 | W.ED.ABDPA2 ---
HPI - Abdominal Pain General: Chief Complaint: Abdominal Pain Stated Complaint: abd, flank pain front abd super sensitive to touch Time Seen by Provider: 01/16/25 19:22 Source: patient Mode of arrival: ambulatory Limitations: no limitations History of Present Illness: Patient is a 19-year-old female who is presenting to the emergency department complaining of right lower quadrant abdominal pain for the past 2 to 3 weeks. Was seen here in the ED previously on 12/23/2024 for the same complaint, discharged with a renal stone and constipation ultimately was discharged home after unremarkable lab work and CT imaging. Patient states that the pain has been present since and though she has been having normal bowel movements has continued to have pain, actually noting that having bowel movements causes an increase in the pain. Still has her appendix and gallbladder, no history of previous abdominal surgeries. No other associated symptoms, such as no nausea or vomiting, urinary symptoms, and no fever or anorexia. States that the pain feels like a sharp stabbing sensation, at its worst is a 7/10 and does radiate to her right lower back. She is 4 months vaginal delivery. At this time vitals are unremarkable. MD elicited complaint: abdominal pain Onset (ago): week(s) Pain Consistency: constant Location: RLQ Severity: moderate Quality: stabbing and sharp Radiation: back Exacerbating factors: bowel movement Associated Symptoms: Denies bloating, change in stool character, chills, constipation, diarrhea, dysuria, fever(s), hematochezia, nausea and vomiting Related Data Date of Last Menstrual Period: 11/03/24 Home Medications ?Medication ?Instructions ?Recorded ?Confirmed valacyclovir 500 mg tablet 500 mg PO DAILY PRN Cold Sores 10/08/24 12/23/24 ibuprofen 800 mg tablet 800 mg PO TID PRN Pain 12/23/24 12/23/24 norethindrone (contraceptive) 0.35 0.35 mg PO DAILY 12/23/24 12/23/24 mg tablet Previous Rx's ?Medication ?Instructions ?Recorded amoxicillin 875 mg-potassium 1 tab PO BID #20 tabs 12/23/24 clavulanate 125 mg tablet lactulose 10 gram oral packet 10 g PO DAILY PRN constipation #15 12/23/24 ea Allergies Allergy/AdvReac Type Severity Reaction Status Date / Time benzoin Allergy Severe blistering Verified 12/23/24 10:50 Review of Systems General: Reports: 10 or more systems reviewed and unremarkable except in HPI and below Const: Denies: fever(s), chills, change in appetite, change in weight or diaphoresis ENMT: Denies: throat pain or hoarseness Card: Denies: chest pain, palpitations or lightheadedness Resp: Denies: dyspnea, productive cough or wheezing GI: Reports: abdominal pain; Denies: nausea, vomiting, diarrhea, constipation, bloating, change in stool character or hematochezia : Denies: flank pain, difficulty voiding, dysuria, urinary frequency or urinary urgency Musc: Reports: back pain; Denies: neck pain Skin/Breast: Denies: rash or new lesions Neuro: Denies: headache(s) or dizziness PFSH ED PFSH: Medical History No pertinent past medical history Denies diabetes, hypertension, seizures, DVT/PE PCP: Dr. Cruz ADD (attention deficit disorder) Diagnosed at the age of 4. [address] Cruz and is on medication---does not have a therapist. Asthma Diagnosed in fifth grade and is exercise-induced. She uses her albuterol inhaler once a day Surgical History Hx of foot surgery Right foot surgery x2 screws removed-- 05/02/2022 L foot surgery x2 History of surgical removal of ganglion cyst From left wrist performed when she was in the 5th grade History of bunionectomy of left great toe Performed in 2018 History of tonsillectomy At the age of 8 History of myringotomy As a child Family History Grandmother Diabetes paternal Grandfather Diabetes paternal Family/Other Breast cancer maternal great aunt, age at diagnosis unknown Mother Diabetes Denies family history of Colon cancer Ovarian cancer Heart disease Hyperlipidemia Hypertension Uterine cancer Thyroid disease Stroke Social History Smoking and tobacco/nicotine status: never used tobacco/nicotine Female Reproductive History: Date of last menstrual period: 11/03/24 Physical Exam Const: COMMON NORMALS: no acute distress, average body habitus, patient oriented x3, no limitations, healthy appearing, alert and well nourished GENERAL APPEARANCE: cooperative and comfortable ORIENTATION/CONSCIOUSNESS: Yes awake HENMT: COMMON NORMALS: normocephalic and atraumatic HEAD & SCALP: normocephalic and atraumatic Eye: COMMON NORMALS: EOMs intact bilaterally and conjunctivae normal CONJUNCTIVA: Yes conjunctivae normal Neck/C-Spine: COMMON NORMALS: full ROM, supple, no meningeal signs and no JVD Resp: COMMON NORMALS: normal respiratory effort, No retractions, No use of accessory muscles and clear to auscultation bilaterally AUSCULTATION: clear to auscultation bilaterally, no crackles, no rales, no rhonchi and no wheezes Cardio: COMMON NORMALS: no JVD, regular rate, regular rhythm, S1 normal heart sound present, S2 normal heart sound present, No gallops present (Cardio), No clicks present (Cardio), No murmurs present (Cardio), No rub (Cardio) and Peripheral pulses 2+ throughout RATE: regular rate RHYTHM: regular rhythm HEART SOUNDS: S1 normal heart sound present and S2 normal heart sound present PERIPHERAL PULSES: Peripheral pulses 2+ throughout GI: COMMON NORMALS: Normal to inspection, nondistended, normoactive bowel sounds present, Soft to palpation, No hepatosplenomegaly present and no masses AUSCULTATION: Yes normoactive bowel sounds PALPATION: Yes Soft to palpation, No Guarding due to palpation present (GI), No Rigid due to palpation and Yes No hepatosplenomegaly present RECTAL EXAM: deferred OTHER: Positive Rovsing sign, positive McBurney's point tenderness. Extremity: COMMON NORMALS: normal to inspection and full ROM Neuro: COMMON NORMALS: patient oriented x3, moves all extremities, no focal motor deficits and no sensory deficits noted SENSORIUM/ORIENTATION: Yes alert MENINGEAL SIGNS: Yes no meningeal signs Psych: COMMON NORMALS: mental status grossly normal, cooperative and speech normal SPEECH: Yes normal speech Skin: COMMON NORMALS: no rashes or lesions noted GENERAL SKIN EXAM: no rashes or lesions noted Course Vital Signs: Vital signs: Vital Signs Temperature 98.8 F 01/16/25 19:20 Pulse Rate 83 01/16/25 20:29 Respiratory Rate 16 01/16/25 20:29 Blood Pressure 114/77 01/16/25 20:29 Pulse Oximetry 99 01/16/25 20:29 Oxygen Delivery Me thod Room Air 01/16/25 20:29 MDM - Abdominal Pain Medical Decision Making This patient presented for evaluation of a couple weeks of right lower quadrant abdominal pain. Was evaluated for the same thing in December, states it had not really gotten any better. Was noted to be specifically worsened when she strains for bowel movement. On exam did have positive testing for an appendicitis, however CT again did not demonstrate any acute appendicitis or other surgical abdominal findings. Even after obtaining labs which all were normal, I did discuss with her the risks of repeat imaging though she wished to pursue to make sure that there was nothing new going on. All of her workup was unremarkable and there is no further evaluation here in the ED necessary, her vitals have remained stable and multiple times upon recheck she was noted to be resting comfortably in bed on her phone. Suspect benign cause such as abdominal muscle strain and encouraged her to start taking ibuprofen Tylenol as she states she had not tried any [id number] treatments yet. Did tell her to return if she starts to notice any fever, vomiting, or any other systemic signs of illness. She agreed with this plan and verbalized understanding. Lab Data 01/16/25 19:31 01/16/25 19:31 Labs/Radiology: Radiology Impressions Abdomen/Pelvis CT 01/16/25 20:19 IMPRESSION: 1. Right nonobstructing nephrolithiasis. 2. Small volume free fluid within the pelvis. 3. Possible mild constipation. 4. Appendix not visualized. Laboratory Results WBC 5.37 10^3/uL (4.5-13.0) 01/16/25 19: RBC 4.79 10^6/uL (3.85-5.65) 01/16/25 19:31 Hgb 10.90 g/dL (12.4-14.8) L 01/16/25 19: Hct 36.2 % (36-47) 01/16/25 19: MCV 75.6 fl (85-98) L 01/16/25 19: MCH 22.8 pg (27-33) L 01/16/25 19: MCHC 30.1 g/dL (30-55) 01/16/25 19: RDW 18.7 % (12.1-15.1) H 01/16/25 19:31 Plt Count 243 10^3/cmm (157-399) 01/16/25 19: MPV 11.0 fL (7.4-10.4) H 01/16/25 19:31 Neut % (Auto) 52.5 % 01/16/25 19: Lymph % (Auto) 38.2 % 01/16/25 19: [place] % (Auto) 6.9 % 01/16/25 19: Eos % (Auto) 1.3 % 01/16/25 19: Baso % (Auto) 0.9 % 01/16/25: Neut # (Auto) 2.82 10^3/uL (1.8-8.0) 01/16/25: Lymph # (Auto) 2.1 10^3/uL (1.5-6.5) 01/16/25: [place] # (Auto) 0.4 10^3/uL (0.2-0.9) 01/16/25: Eos # (Auto) 0.1 10^3/uL (0.0-0.8) 01/16/25: Baso # (Auto) 0.1 10^3/uL (0.0-0.1) 01/16/25: Nucleated RBC % (auto) 0 % 01/16/25: Nucleated RBCs # 0.0 /100WBC 01/16/25: Sodium 140 mmol/L (136-145) 01/16/25: Potassium 3.8 mmol/L (3.5-5.1) 01/16/25: Chloride 105 mmol/L (98-107) 01/16/25 19: Carbon Dioxide 26 mmol/L (22-29) 01/16/25 19: Anion Gap 12.8 (5-19) 01/16/25 19: BUN 11 mg/dL (6-20) 01/16/25 19: Creatinine 0.6 mg/dL (0.5-0.9) 01/16/25 19: GFR Calculation 127.5 mL/min (90-130) 01/16/25: Glucose 96 mg/dL (65-115) 04/02/25 19:31 Calculated Osmolality 289 mOsm/kg (285-295) 01/16/25 19:31 Calcium 9.1 mg/dL (8.5-10.5) 01/16/25 19:31 Total Bilirubin 0.3 mg/dL (0.15-1.2) 01/16/25 19:31 AST 27 U/L (0-32) 01/16/25 19:31 ALT 41 U/L (0-33) H 01/16/25 19:31 Alkaline Phosphatase 111 U/L (35-105) H 01/16/25 19:31 C-Reactive Protein 3.0 mg/L (0.0-4.9) 01/16/25 19:31 Total Protein 7.1 g/dL (6.6-8.7) 01/16/25 19:31 Albumin 4.6 g/dL (3.5-5.2) 01/16/25 19:31 Globulin 2.5 g/dL (1.3-4.6) 01/16/25 19:31 Lipase 33 U/L (13-60) 01/16/25 19:31 HCG, Qual Negative (Negative) 01/16/25 19:31 Urine Color Yellow (Yellow) 01/16/25 19:59 Urine Appearance Clear (CLEAR) 01/16/25 19:59 Urine pH 6.5 (5-7) 01/16/25 19:59 Ur Specific [place] 1.010 (1.005-1.030) 01/16/25 19:59 Urine Protein Neg (Negative) 01/16/25 19:59 Urine Glucose (UA) Norm (Normal) 01/16/25 19:59 Urine Ketones Negative (Negative) 01/16/25 19:59 Urine Blood Neg (Negative) 01/16/25 19:59 Urine Nitrate Negative (Negative) 01/16/25 19:59 Urine Bilirubin Neg (Negative) 01/16/25 19:59 Urine Urobilinogen Norm mg/dL (Negative) 01/16/25 19:59 Ur Leukocyte Esterase Negative (Negative) 01/16/25 19:59 Amorphous Sediment Not Reportable 01/16/25 19:59 All radiology interpretation(s) finalized by discharge Discharge Plan Discharge Patient Disposition: Home Clinical Impression: Right lower quadrant abdominal pain Condition: Stable Prescriptions: No Action amoxicillin-pot clavulanate 875-125 mg tablet 1 tab PO BID Qty: 20 0RF valacyclovir 500 mg tablet 500 mg PO DAILY PRN (Reason: Cold Sores) norethindrone (contraceptive) 0.35 mg Tablet 0.35 mg PO DAILY ibuprofen 800 mg tablet 800 mg PO TID PRN (Reason: Pain) lactulose 10 gram packet 10 g PO DAILY PRN (Reason: constipation) Qty: 15 0RF Discharge Orders: Discharge ED (Routine); Ordered 01/16/25 Ordered By: Mike Armas Referrals: Severino Cruz MD [Primary Care Provider] - Patient Instructions: Abdominal Pain (ED) Activity Restrictions/Additional Instructions: Please start taking ibuprofen and Tylenol for pain. Heat to your stomach. Drink plenty of fluids, follow-up routinely with primary doctor. If you start developing any fever, vomiting, or other systemic signs of illness return to the ED for reevaluation. Print Language: Japanese Coding Level of Care Code ED Steel Molder for Tyler Sarabia
[2025-01-16 20:05] LABS: Add Urine Microscopic? NO
[2025-01-16 20:07] LABS: HCG, Serum Qual Negative (Negative)
[2025-01-16 20:08] LABS: Bilirubin Urine Neg (Negative); Blood Urine Neg (Negative); Glucose Urine UA Norm (Normal); Ketones Urine Negative (Negative); Leukocyte Esterase Urine Negative (Negative); Nitrate Urine Negative (Negative); Protein Urine Neg (Negative); Urine Appearance Clear (CLEAR); Urine Color Yellow (Yellow); Urobilinogen Urine Norm (Negative); pH Urine 6.5 (5-7)
[2025-01-16 20:09] LABS: Charge for UA Resulting for Rev
[2025-01-16 20:13] LABS: Slide Review Slide Review Perform
--- NOTE | 2025-01-16 20:19 | CTR_ITS ---
PROCEDURE INFORMATION: Exam: CT Abdomen And Pelvis With Contrast Exam date and time: 01/16/2025 8:35 PM Age: 19 years old Clinical indication: Abdominal pain; Generalized; Additional info: Rlq pain x2 wks TECHNIQUE: Imaging protocol: Computed tomography of the abdomen and pelvis with contrast. Radiation optimization: All CT scans at this facility use at least one of these dose optimization techniques: automated exposure control; mA and/or kV adjustment per patient size (includes targeted exams where dose is matched to clinical indication); or iterative reconstruction. Contrast material: OMNIPAQUE 350; Contrast volume: 75 ml; Contrast route: INTRAVENOUS (IV); COMPARISON: CT abdomen pelvis w con* [id number] 12/23/2024 1:18 PM RADIATION DOSE METRICS: Total DLP (mGy-cm): 340.16 FINDINGS: Liver: Unremarkable. No mass. Gallbladder and biliary ducts: Unremarkable. No calcified stones. No ductal dilation. Pancreas: Unremarkable. Spleen: Unremarkable. No splenomegaly. Adrenal glands: Normal. No mass. Kidneys and ureters: Right nephrolithiasis is demonstrated with multiple calculi. Calculi measurement and location: Mid right renal calculi measure 2 mm. The visualized kidneys appear otherwise unremarkable. No visualized renal hydronephrosis. No visualized obstructing ureteral calculus. Stomach and bowel: Possible mild increased volume of colonic fecal material identified throughout the colon. The bowel appears otherwise unremarkable. Appendix: The appendix is not definitively visualized. No evidence for focal inflammatory process in the expected region of the appendix. Recommend clinical correlation. Intraperitoneal space: Small volume of intraperitoneal fluid identified in the bilateral pelvis. No significant intraperitoneal well-defined fluid collection or air identified. Vasculature: Unremarkable. No abdominal aortic aneurysm. Lymph nodes: No enlarged lymph nodes. Urinary bladder: Urinary bladder appears small in size, limiting further assessment. Reproductive: Unremarkable as visualized. Bones/joints: No acute bony abnormality. No significant degenerative changes. Soft tissues: Unremarkable. Other findings: Limited study with motion artifact. CT/CT abdomen pelvis w con* [id number] IMPRESSION: 1. Right nonobstructing nephrolithiasis. 2. Small volume free fluid within the pelvis. 3. Possible mild constipation. 4. Appendix not visualized.
[2025-01-16 20:29] VITALS: BP 114/77; PULSE 83; RESP 16; O2SAT 99
[2025-01-16] MEDS: iohexol 350 mg/mL 500 mL Btl (per mL) IV (20:37)
[2025-01-16 21:32] VITALS: BP 122/81; PULSE 73; RESP 16; O2SAT 98
== END 2025-01-16 21:42 | disposition home or self-care (01) ==
PROVIDERS: Emergency Medicine; Emergency Provider Physician Assistant; PCP Family Medicine
DX: R10.31 Right lower quadrant pain (principal)
CPT/HCPCS: 36415; 74177; 80053; 81003; 83690; 84703; 85025; 86140; 99285

== ENCOUNTER 2025-03-11 10:23 | Emergency (ER) | payer MEDICAID, SELFPAY ==
[2025-03-11 10:44] VITALS: BP 109/70; PULSE 77; TEMP 37.1; O2SAT 100; BMI 21.4
--- NOTE | 2025-03-11 11:49 | XRR_ITS ---
PROCEDURE INFORMATION: Exam: XR Chest Exam date and time: 03/11/2025 11:53 AM Age: 19 years old Clinical indication: Cough TECHNIQUE: Imaging protocol: Radiologic exam of the chest. Views: 1 view. COMPARISON: CT abdomen pelvis w con* [id number] 01/16/2025 8:35 PM FINDINGS: Lungs: Unremarkable. No consolidation. Pleural spaces: Unremarkable. No pleural effusion. No pneumothorax. Heart/Mediastinum: Unremarkable. No cardiomegaly. Bones/joints: Unremarkable. XR/XR chest 1V portable [id number] IMPRESSION: No acute findings.
[2025-03-11 12:18] LABS: Rapid Strep A Test Negative (Negative)
[2025-03-11 12:20] VITALS: BP 103/60; PULSE 70; O2SAT 100
--- NOTE | 2025-03-11 12:21 | PC.PHAR ---
Patient states she has a control patch . No longer taking the pill . Unable to get a hold of Pharmacy to verify for patch adn for last fill of Valacylovir.
[2025-03-11 12:44] LABS: Influenza A NEGATIVE (Negative); Influenza B NEGATIVE (Negative); Respiratory Syncytial Virus Ce NEGATIVE (Negative); SARS-CoV-2 PCR NEGATIVE (Negative)
[2025-03-11 13:14] VITALS: BP 105/62; PULSE 83; O2SAT 100
--- NOTE | 2025-03-11 13:27 | ED_ITS ---
HPI - URI/Sore Throat General: Chief Complaint: Upper Respiratory Infection Stated Complaint: sore throat, cough,headache,n,v Time Seen by Provider: 03/11/25 12:08 History of Present Illness: 19-year-old female presents emergency ro om planing of sore throat cough headache with nausea and vomiting that been going on for about the last 5 days. No hematochezia melena hematemesis coffee-ground emesis. Cough has been nonproductive. No associated diarrhea. Associated symptoms: Deny abdominal pain, chills, chest pain, diarrhea, ear or mastoid pain, fever(s), nasal congestion, nausea or vomiting Related Data Home Medications ?Medication ?Instructions ?Recorded ?Confirmed valacyclovir 500 mg tablet 500 mg PO DAILY PRN Cold So res 10/08/24 03/11/25 acetaminophen 325 mg tablet 650 mg PO QID PRN Fever Or Pain 03/11/25 03/11/25 (Tylenol) ondansetron HCl 4 mg tablet 4 mg PO Q6H PRN Nausea And Vomiting 03/11/25 03/11/25 Previous Rx's ?Medication ?Instructions ?Recorded promethazine 25 mg tablet 25 mg PO Q6H PRN nausea and 03/11/25 vomiting #20 tabs Allergies Allergy/AdvReac Type Severity Reaction Status Date / Time benzoin Allergy Severe blistering Verified 03/11/25 10:50 Review of Systems Const: Denies: fever(s), chills, body aches, change in appetite, fatigue or malaise ENMT: Denies: throat pain, ear or mastoid pain, nasal discharge or nasal congestion Card: Denies: chest pain, edema, dyspnea on exertion or orthopnea Resp: Reports: non-productive cough and chest congestion; Denies: dyspnea or productive cough GI: Denies: abdominal pain, nausea, vomiting, hematemesis, coffee ground emesis, diarrhea, constipation, bloating, hematochezia or melena : Denies: flank pain, difficulty voiding, dysuria, urinary frequency or urinary urgency Skin/Breast: Denies: rash or pruritus PFS ED PFSH: Medical History No pertinent past medical history Denies diabetes, hypertension, seizures, DVT/PE PCP: Dr. Cruz ADD (attention deficit disorder) Diagnosed at the age of 4[address] Cruz and is on medication---does not have a therapist. Asthma Diagnosed in fifth grade and is exercise-induced. She uses her albuterol inhaler once a day Surgical History Hx of foot surgery Right foot surgery x2 screws removed-- 05/02/2022 L foot surgery x2 History of surgical removal of ganglion cyst From left wrist performed when she was in the 5th grade History of bunionectomy of left great toe Performed in 2018 History of tonsillectomy At the age of 8 History of myringotomy As a child Family History Grandmother Diabetes paternal Grandfather Diabetes paternal Family/Other Breast cancer maternal great aunt, age at diagnosis unknown Mother Diabetes Denies family history of Colon cancer Ovarian cancer Heart disease Hyperlipidemia Hypertension Uterine cancer Thyroid disease Stroke Social History Smoking and tobacco/nicotine status: never used tobacco/nicotine Physical Exam Const: COMMON NORMALS: no acute distress GENERAL APPEARANCE: cooperative and comfortable ORIENTATION/CONSCIOUSNESS: Yes awake, Yes oriented to person, Yes oriented to place and Yes oriented to time HENMT: COMMON NORMALS: normocephalic, atraumatic, hearing grossly normal bilaterally, external ears normal, EAC's normal, TM's normal bilaterally, Normal nasal mucous membranes and turbinates present, moist oral mucous membranes and oropharynx normal HEAD & SCALP: normocephalic and atraumatic NOSE: Normal nasal mucous membranes and turbinates present EXTERNAL EAR: Yes external ears normal EXTERNAL AUDITORY CANAL: EAC's normal TYMPANIC MEMBRANE: TM's normal bilaterally Eye: COMMON NORMALS: Equal, round and reactive pupils present, EOMs intact bilaterally, conjunctivae normal and no scleral icterus CONJUNCTIVA: Yes conjunctivae normal PUPIL: Yes Equal, round and reactive pupils present Neck/C-Spine: COMMON NORMALS: full ROM, no lymphadenopathy, supple and no JVD Lymph: LYMPHATIC: no lymphadenopathy noted and no lymphedema noted Resp: COMMON NORMALS: normal respiratory effort, No retractions, No use of acc essory muscles and clear to auscultation bilaterally AUSCULTATION: clear to auscultation bilaterally Cardio: COMMON NORMALS: no JVD, regular rate, regular rhythm and No murmurs present (Cardio) RATE: regular rate RHYTHM: regular rhythm Extremity: COMMON NORMALS: normal to inspection, capillary refill normal, no clubbing, cyanosis or edema, no calf tenderness and no pedal edema Neuro: SENSORIUM/ORIENTATION: Yes oriented to person, Yes oriented to place and Yes oriented to time Skin: COMMON NORMALS: no rashes or lesions noted GENERAL SKIN EXAM: no rashes or lesions noted Course Vital Signs: Vital signs: Vital Signs Temperature 98.8 F 03/11/25 10:44 Pulse Rate 83 03/11/25 13:14 Blood Pressure 105/62 03/11/25 13:14 Pulse Oximetry 100 03/11/25 13:14 Oxygen Delivery Me thod Room Air 03/11/25 10:44 MDM - URI/Sore Throat Medical Decision Making No acute finding saw for strep and flu and COVID all negative. Patient generally well-appearing no findings on exam. Discharge patient home supportive cares follow-up as needed Lab Data I reviewed the patient's lab results. Radiology Impressions Chest X-Ray 03/11/25 11:49 IMPRESSION: No acute findings. Laboratory Results Influenza A (PCR) Negative (Negative) 03/11/25 10:50 Influenza Type B (PCR) Negative (Negative) 03/11/25 10:50 RSV (PCR) Negative (Negative) 03/11/25 10:50 SARS-CoV-2 (PCR) Negative (Negative) 03/11/25 10:50 Group A Strep Rapid Negative (Negative) 03/11/25 10:50 All radiology interpretation(s) finalized by discharge Discharge Plan Discharge Patient Disposition: Home Clinical Impression: Viral infection Condition: Stable Prescriptions: New promethazine 25 mg tablet 25 mg PO Q6H PRN (Reason: nausea and vomiting) Qty: 20 0RF No Action valacyclovir 500 mg tablet 500 mg PO DAILY PRN (Reason: Cold Sores) acetaminophen [Tylenol] 325 mg Tablet 650 mg PO QID PRN (Reason: Fever Or Pain) ondansetron HCl [Zofran] 4 mg Tablet 4 mg PO Q6H PRN (Reason: Nausea And Vomiting) Discharge Orders: Discharge ED (Routine); Ordered 03/11/25 Ordered By: Alfonso Echeverria Referrals: Severino Cruz MD [Primary Care Provider, Family Practice] Discharge Diet: Clear Liquid Discharge Activity: Increase activity as tolerated Patient Instructions: Viral Syndrome (ED), Opioid Safety, Pain Management Activity Restrictions/Additional Instructions: Thank you for choosing [facility] for your healthcare needs today. It is very important that you follow up as instructed or that you return to the Emergency Department should you have concerns or if your condition changes or worsens in any way. Stand Alone Forms: Work/School Release Print Language: Ukrainian Coding Level of Care Code ED Cement Tester Assistant for Tyler Sarabia
== END 2025-03-11 13:15 | disposition home or self-care (01) ==
PROVIDERS: Emergency Medicine; Emergency Provider Family Medicine; PCP Family Medicine
DX: B34.9 Viral infection, unspecified (principal); Z11.52 Encounter for screening for COVID-19
CPT/HCPCS: 71045; 87081; 87637; 87880; 99284

== ENCOUNTER 2025-06-16 20:21 | Emergency (ER) | payer MEDICAID, SELFPAY ==
--- OUTSIDE RECORDS SUMMARY | 2022-11-23 06:00 | XMS_ITS | Continuity of Care Document ---
Author Organization [facility] Address [id number] [address] Phone Care Team Providers Care Block Cutter Name Role Phone Ricky Hernandez DDS Unavailable [...] Diagnoses Date Provider Providers Copied on Encounter [facility], [id number] [place], [place], [id number], tel:[phone] [facility] No Information Mary García. [address] [place] [address], [address], [place]. tel:[phone] Referring Provider: Ricky Hernandez, [address] [place] [address], [facility]. tel:[phone] [facility], [id number] [place], [place], [id number], tel:[phone] [facility] No Information Mary García. [address] [place] [address], [address], [place]. tel:[phone] Referring Provider: Ricky Hernandez, [address] [place] [address], [facility]. tel:[phone] Family History Family Member Type Diagnosis Age At Onset No Information Payers Payer name Insurance type Covered democrat ID Authoriza tion(s) D [employer] CI [id number] Social History Type Description Quantity Date Captured [...]
[2025-06-16 20:26] VITALS: BP 99/62; PULSE 86; RESP 18; TEMP 37.3; O2SAT 98; BMI 20.7
--- OUTSIDE RECORDS SUMMARY | 2025-06-16 20:28 | XMS_ITS | Encounter Summary ---
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
--- OUTSIDE RECORDS SUMMARY | 2025-06-16 20:28 | XMS_ITS | Clinical Summary ---
Author Organization [employer] [facility] Address [address] [place]: Epic Prelude ADT [place] [id number] Care Team Providers Care Measurement Coordinator Name Role Phone Unavailable Primary Care Provider Unavailabl e Immunizations Immunization Administration Dates Next Due (M-M-R II/PRIORIX)(12 MO UP) MEASLES, MUMPS AND RUBELLA VIRUS VACCINE, 0.5 ML IM/SUBCUT 12/30/2009,03/15/2006 (VARIVAX)(12 MOS UP)VARICELL A VIRUS VACCINE (PF) 0.5 ML, SUB CUT 12/30/2009,03/15/2006 Dt Dtp Dtap Vaccine 12/30/2009, 6,03/15/2006,2004 HIB, Unspecified Formulation 06/09/2006,03/15/20 06,02/04/2005 Hepatitis A Vaccine 07/23/2008,04/21/2006 Hepatitis B Vaccine 07/23/2008, 5,2004,2004 IPV/OPV 12/30/2009,03/15/2006,02/04/2005 Social History Tobacco Use Types Packs/Day Years Used Date Smoking Tobacco: Never Assessed Comments Unknown Sex and Gender Information Value Date Recorded Sex Assigned at Not on file 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
--- OUTSIDE RECORDS SUMMARY | 2025-06-16 20:28 | XMS_ITS | Encounter Summary ---
Author Organization [facility] Address [address] [place] [address] Care Team Providers [employer] Paraprofessional Name Role Phone Unavailable Primary Care Provider Unavailabl e Encounter Details Date Type Department Care Team (Late st Contact Info) Description 2004 Inpatient Historical HIS IN BED Abdiaziz Lozano Jr., MD NO ADDRESS ON FILE RESPIRATORY DISTRESS SYN (CMS/HCC) (Primary Dx) Social History Tobacco Use Types Packs/Day Years Used Date Smoking Tobacco: Never Assessed Comments Unknown Sex and Gender Information Value Date Recorded Sex Assigned at Not on file Legal Sex Female 3:23 AM LABORER HEADING Gender Identity Not on file Sexual Orientation Not on file documented as of this encounter Plan of Treatment Not on file documented as of this encounter Procedures Procedure Name Priority Date/Time Associated Diagnosis Comments BILIRUBIN, TOTAL AND DIRECT Routine 2004 11:08 AM LABORER HEADING POC GLUCOSE Routine 2004 10:59 AM LABORER HEADING METABOLIC SCREEN Routine 2004 7:02 AM LABORER HEADING POC GLUCOSE Routine 2004 5:05 AM LABORER HEADING DIFFERENTIAL, MANUAL Routine 2004 5:09 AM LABORER HEADING CBC WITH DIFFERENTIAL Routine 2004 5:09 AM LABORER HEADING POC GLUCOSE Routine 2004 4:59 AM LABORER HEADING DIFFERENTIAL, MANUAL Routine 2004 5:10 AM LABORER HEADING BILIRUBIN, TOTAL AND DIRECT Routine 2004 5:10 AM LABORER HEADING CBC WITH DIFFERENTIAL Routine 2004 5:10 AM LABORER HEADING BASIC METABOLIC PANEL Routine 2004 5:10 AM LABORER HEADING POC GLUCOSE Routine 2004 5:05 AM LABORER HEADING BASIC CHEM/BILI PROFILE Routine 2004 2:59 AM LABORER HEADING DIFFERENTIAL, MANUAL Routine 2004 2:59 AM LABORER HEADING BILIRUBIN, TOTAL AND DIRECT Routine 2004 2:59 AM LABORER HEADING CBC WITH DIFFERENTIAL Routine 2004 2:59 AM LABORER HEADING POC GLUCOSE Routine 2004 2:09 AM LABORER HEADING BILIRUBIN, TOTAL AND DIRECT Routine 2004 5:56 PM LABORER HEADING POC GLUCOSE Routine 2004 5:30 PM LABORER HEADING POC GLUCOSE Routine 2004 11:13 AM LABORER HEADING BASIC CHEM/BILI PROFILE Routine 2004 5:20 AM LABORER HEADING BILIRUBIN, TOTAL AND DIRECT Routine 2004 5:20 AM LABORER HEADING POC BLOOD GAS AND GLUCOSE Routine 2004 5:13 AM LABORER HEADING GENTAMICIN LEVEL TROUGH Routine 2004 11:50 PM LABORER HEADING POC GLUCOSE Routine 2004 11:27 PM LABORER HEADING BILIRUBIN, TOTAL AND DIRECT Routine 2004 5:58 PM LABORER HEADING POC GLUCOSE Routine 2004 5:30 PM LABORER HEADING POC GLUCOSE Routine 2004 11:29 AM LABORER HEADING DIFFERENTIAL, MANUAL Routine 2004 5:27 AM LABORER HEADING CBC WITH DIFFERENTIAL Routine 2004 5:27 AM LABORER HEADING BASIC CHEM/BILI PROFILE Routine 2004 5:24 AM LABORER HEADING BILIRUBIN, TOTAL AND DIRECT Routine 2004 5:24 AM LABORER HEADING POC BLOOD GAS AND GLUCOSE Routine 2004 5:18 AM LABORER HEADING POC BLOOD GAS AND GLUCOSE Routine 2004 6:19 PM LABORER HEADING BILIRUBIN, TOTAL AND DIRECT Routine 2004 6:18 PM LABORER HEADING METABOLIC SCREEN Routine 2004 5:21 AM LABORER HEADING BASIC CHEM/BILI PROFILE Routine 2004 5:19 AM LABORER HEADING DIFFERENTIAL, MANUAL Routine 2004 5:19 AM LABORER HEADING BILIRUBIN, TOTAL AND DIRECT Routine 2004 5:19 AM LABORER HEADING CBC WITH DIFFERENTIAL Routine 2004 5:19 AM LABORER HEADING POC BLOOD GAS AND GLUCOSE Routine 2004 5:10 AM LABORER HEADING POC BLOOD GAS AND GLUCOSE Routine 2004 6:05 PM LABORER HEADING BILIRUBIN, TOTAL AND DIRECT Routine 2004 5:38 PM LABORER HEADING POC BLOOD GAS AND GLUCOSE Routine 2004 1:54 PM LABORER HEADING BASIC CHEM/BILI PROFILE Routine 2004 5:13 AM LABORER HEADING DIFFERENTIAL, MANUAL Routine 2004 5:13 AM LABORER HEADING BILIRUBIN, TOTAL AND DIRECT Routine 2004 5:13 AM LABORER HEADING CBC WITH DIFFERENTIAL Routine 2004 5:13 AM LABORER HEADING POC BLOOD GAS AND GLUCOSE Routine 2004 5:08 AM LABORER HEADING POC BLOOD GAS AND GLUCOSE Routine 2004 11:09 PM LABORER HEADING BILIRUBIN, TOTAL AND DIRECT Routine 2004 6:18 PM LABORER HEADING POC BLOOD GAS AND GLUCOSE Routine 2004 6:14 PM LABORER HEADING POC GLUCOSE Routine 2004 10:04 AM LABORER HEADING BASIC CHEM/BILI PROFILE Routine 2004 5:17 AM LABORER HEADING DIFFERENTIAL, MANUAL Routine 2004 5:17 AM LABORER HEADING BILIRUBIN, TOTAL AND DIRECT Routine 2004 5:17 AM LABORER HEADING CBC WITH DIFFERENTIAL Routine 2004 5:17 AM LABORER HEADING POC BLOOD GAS AND GLUCOSE Routine 2004 5:12 AM LABORER HEADING BILIRUBIN, TOTAL AND DIRECT Routine 2004 11:01 PM LABORER HEADING POC BLOOD GAS AND GLUCOSE Routine 2004 8:45 PM LABORER HEADING documented in this encounter Results * BILIRUBIN, TOTAL AND DIRECT (2004 11:08 AM LABORER HEADING) BILIRUBIN TOTAL 4.4 0.5 - 10.5 mg/day INTERFACE SYSTEM Comment:Normals apply to bab ies less than two weeks of age. BILIRUBIN INDIRECT 4.4 0.6 - 10.5 mg/dL INTERFACE SYSTEM BILIRUBIN DIRECT 0.0 0.0 - 0.6 mg/dL INTERFACE SYSTEM 2004 11:0 8 AM LABORER HEADING Abdiaziz Lozano Jr., MD CHEMISTRY ORDERABLES Fi nal Result Performing Organization Address City/[facility] de Phone Number INTERFACE SYSTEM Refer to clinic/hospital department * (ABNORMAL) POC GLUCOSE (2004 10:59 AM LABORER HEADING) GLUCOSE POC 104(H) 60 - 100 mg/dL INTERFACE SYSTEM 2004 10:5 9 AM LABORER HEADING Abdiaziz Lozano Jr., MD POINT OF CARE TESTING F inal Result Performing Organization Address [facility] Phone Number INTERFACE SYSTEM Refer to clinic/hospital department * METABOLIC SCREEN (2004 7:02 AM LABORER HEADING) PKU Sent to Reference Lab INTERFACE SYSTEM 2004 7:02 AM LABORER HEADING Abdiaziz Lozano Jr., MD CHEMISTRY ORDERABLES Fi nal Result Performing Organization Address [facility] Phone Number INTERFACE SYSTEM Refer to clinic/hospital department * POC GLUCOSE (2004 5:05 AM LABORER HEADING) GLUCOSE POC 68 60 - 100 mg/dL INTERFACE SYSTEM 2004 5:05 AM LABORER HEADING Abdiaziz Lozano Jr., MD POINT OF CARE TESTING F inal Result Performing Organization Address [facility] de Phone Number INTERFACE SYSTEM Refer to clinic/hospital department * (ABNORMAL) DIFFERENTIAL, MANUAL (2004 5:09 AM LABORER HEADING) NEUTROPHILS, SEG 23 15 - 35 percent(in active) INTERFACE SYSTEM BANDS 1(L) 6 - 15 % INTERFACE SYSTEM LYMPHOCYTES 55(H) 43 - 53 percent(in active) INTERFACE SYSTEM MONOCYTE 18(H) 8 - 9 percent(in active) INTERFACE SYSTEM EOSINOPHILS 2 0 - 3 % INTERFAC E SYSTEM MYELOCYTES 1 <=1 % INTERFACE SYSTEM PLATELET EST. Normal Normal INTERF GE SYSTEM RBC MORPHOLOGY Abnormal(A ) Normal INTERFACE SYSTEM ANISOCYTOSIS 1+(A) None Seen INTERFA CE SYSTEM POIKILOCYTES 1+(A) None Seen INTERFA CE SYSTEM 2004 5:09 AM LABORER HEADING Abdiaziz Lozano Jr., MD HEMATOLOGY ORDERABLES C OM Final Result Performing Organization Address City/[facility] Co de Phone Number INTERFACE SYSTEM Refer to clinic/hospital department * (ABNORMAL) CBC WITH DIFFERENTIAL (2004 5:09 AM LABORER HEADING) WBC 8.2(L) 9.4 - 34.0 K/ul INTERFACE SYSTEM Comment: WBC Corrected for Nucleated RBC'S RBC 4.65 3.00 - 6.20 Mil/ul INTERFACE SYSTEM HEMOGLOBIN 17.1(H) 12.2 - 16.0 g/dL INTERFACE SYSTEM HEMATOCRIT 48.7 38.0 - 52.0 % INTERFACE SYSTEM MCV 104.7 95.0 - 118.0 Fl INTERFACE SYSTEM MCH 36.8 31.0 - 37.0 pg INTERFACE SYSTEM MCHC 35.1 31.0 - 37.0 g/dL INTERFACE SYSTEM RDW 16.0(H) 11.0 - 14.5 percent(in active) INTERFACE SYSTEM PLATELETS 296 140 - 440 K/ul INTERFACE SYSTEM MPV 12.5 8.9 - 12.8 Fl INTERFACE SYSTEM NRBC 1 <=1 INTERFACE SYSTEM 2004 5:09 AM LABORER HEADING Abdiaziz Lozano Jr., MD HEMATOLOGY ORDERABLES F inal Result INTERFACE SYSTEM Refer to clinic/hospital department * POC GLUCOSE (2004 4:59 AM LABORER HEADING) GLUCOSE POC 72 60 - 100 mg/dL INTERFACE SYSTEM 2004 4:59 AM LABORER HEADING Abdiaziz Lozano Jr., MD POINT OF CARE TESTING F inal Result Performing Organization Address [facility] Phone Number INTERFACE SYSTEM Refer to clinic/hospital department * BILIRUBIN, TOTAL AND DIRECT (2004 5:10 AM LABORER HEADING) BILIRUBIN TOTAL 8.4 0.5 - 10.5 mg/day INTERFACE SYSTEM Comment:Normals apply to bab ies less than two weeks of age. BILIRUBIN INDIRECT 8.4 0.6 - 10.5 mg/dL INTERFACE SYSTEM BILIRUBIN DIRECT 0.0 0.0 - 0.6 mg/dL INTERFACE SYSTEM 2004 5:10 AM LABORER HEADING Abdiaziz Lozano Jr., MD CHEMISTRY ORDERABLES Fi nal Result Performing Organization Address [facility] Phone Number INTERFACE SYSTEM Refer to clinic/hospital department * (ABNORMAL) DIFFERENTIAL, MANUAL (2004 5:10 AM LABORER HEADING) NEUTROPHILS, SEG 24 15 - 35 percent(in active) INTERFACE SYSTEM BANDS 2(L) 6 - 15 % INTERFACE SYSTEM LYMPHOCYTES 55(H) 43 - 53 percent(in active) INTERFACE SYSTEM MONOCYTE 16(H) 8 - 9 percent(in active) INTERFACE SYSTEM BASOPHILS 2(H) 0 - 1 % INTERFACE SYSTEM MYELOCYTES 1 <=1 % INTERFACE SYSTEM PLATELET EST. Normal Normal INTERF GE SYSTEM RBC MORPHOLOGY Abnormal(A ) Normal INTERFACE SYSTEM ANISOCYTOSIS 1+(A) None Seen INTERFA CE SYSTEM POIKILOCYTES 1+(A) None Seen INTERFA CE SYSTEM POLYCHROMASIA 1+(A) None Seen INTERF GE SYSTEM 2004 5:10 AM LABORER HEADING Abdiaziz Lozano Jr., MD HEMATOLOGY ORDERABLES C OM Final Result Performing Organization Address [facility] Phone Number INTERFACE SYSTEM Refer to clinic/hospital department * (ABNORMAL) CBC WITH DIFFERENTIAL (2004 5:10 AM LABORER HEADING) WBC 13.0 9.4 - 34.0 K/ul INTERFACE SYSTEM RBC 4.93 3.00 - 6.20 Mil/ul INTERFACE SYSTEM HEMOGLOBIN 18.2(H) 12.2 - 16.0 g/dL INTERFACE SYSTEM HEMATOCRIT 52.4(H) 38.0 - 52.0 % INTERFACE SYSTEM MCV 106.3 95.0 - 118.0 Fl INTERFACE SYSTEM MCH 36.9 31.0 - 37.0 pg INTERFACE SYSTEM MCHC 34.7 31.0 - 37.0 g/dL INTERFACE SYSTEM RDW 15.9(H) 11.0 - 14.5 percent(babak ctive) INTERFACE SYSTEM PLATELETS 298 140 - 440 K/ul INTERFACE SYSTEM MPV 13.4(H) 8.9 - 12.8 Fl INTERFACE SYSTEM 2004 5:10 AM LABORER HEADING Abdiaziz Lozano Jr., MD HEMATOLOGY ORDERABLES F inal Result Performing Organization Address [facility] Phone Number INTERFACE SYSTEM Refer to clinic/hospital department * (ABNORMAL) BASIC METABOLIC PANEL (2004 5:10 AM LABORER HEADING) GLUCOSE 63 60 - 100 mg/dL INTERFACE SYSTEM BUN 10 7 - 17 mg/dL INTERFACE SYSTEM CREATININE 0.6 0.2 - 0.7 mg/dL INTERFACE SYSTEM SODIUM 137 136 - 145 mEq/L INTERFACE SYSTEM POTASSIUM 6.3(H) 3.5 - 5.0 mEq/L INTERFACE SYSTEM Comment:Specimen moderately hemolyzed CHLORIDE 104 95 - 110 mEq/L INTERFACE SYSTEM CO2 28 22 - 32 mmol/l INTERFACE SYSTEM ANION GAP 11 9 - 20 mEq/L INTERFACE SYSTEM OSMOLALITY, CALCULATED 284 275 - 295 mOsm/Kg INTERFACE SYSTEM CALCIUM 9.4 8.4 - 10.5 mg/dL INTERFACE SYSTEM 2004 5:10 AM LABORER HEADING Abdiaziz Lozano Jr., MD CHEMISTRY ORDERABLES Fi nal Result Performing Organization Address [facility] Phone Number INTERFACE SYSTEM Refer to clinic/hospital department * POC GLUCOSE (2004 5:05 AM LABORER HEADING) GLUCOSE POC 69 60 - 100 mg/dL INTERFACE SYSTEM 2004 5:05 AM LABORER HEADING Abdiaziz Lozano Jr., MD POINT OF CARE TESTING F inal Result Performing Organization Address [facility] de Phone Number INTERFACE SYSTEM Refer to clinic/hospital department * BILIRUBIN, TOTAL AND DIRECT (2004 2:59 AM LABORER HEADING) BILIRUBIN TOTAL 7.8 0.5 - 10.5 mg/day INTERFACE SYSTEM Comment:Normals apply to bab ies less than two weeks of age. BILIRUBIN INDIRECT 7.8 0.6 - 10.5 mg/dL INTERFACE SYSTEM BILIRUBIN DIRECT 0.0 0.0 - 0.6 mg/dL INTERFACE SYSTEM 2004 2:59 AM LABORER HEADING Abdiaziz Lozano Jr., MD CHEMISTRY ORDERABLES Fi nal Result Performing Organization Address [facility] Phone Number INTERFACE SYSTEM Refer to clinic/hospital department * (ABNORMAL) DIFFERENTIAL, MANUAL (2004 2:59 AM LABORER HEADING) NEUTROPHILS, SEG 31 15 - 35 percent(in active) INTERFACE SYSTEM BANDS 5(L) 6 - 15 % INTERFACE SYSTEM LYMPHOCYTES 46 43 - 53 percent(in active) INTERFACE SYSTEM MONOCYTE 16(H) 8 - 9 percent(in active) INTERFACE SYSTEM EOSINOPHILS 1 0 - 3 % INTERFAC E SYSTEM METAMYELOCYTE 1 0 - 1 % INTERF GE SYSTEM PLATELET EST. Normal Normal INTERF GE SYSTEM RBC MORPHOLOGY Abnormal(A ) Normal INTERFACE SYSTEM ANISOCYTOSIS 1+(A) None Seen INTERFA CE SYSTEM 2004 2:59 AM LABORER HEADING Abdiaziz Lozano Jr., MD HEMATOLOGY ORDERABLES C OM Final Result Performing Organization Address [facility] Co de Phone Number INTERFACE SYSTEM Refer to clinic/hospital department * PANEL 1 (2004 2:59 AM LABORER HEADING) TRIGLYCERIDE 75 0 - 158 mg/dL INTERFACE SYSTEM GLUCOSE 73 60 - 100 mg/dL INTERFACE SYSTEM BUN 11 7 - 17 mg/dL INTERFACE SYSTEM CREATININE 0.5 0.2 - 0.7 mg/dL INTERFACE SYSTEM SODIUM 136 136 - 145 mEq/L INTERFACE SYSTEM POTASSIUM 4.7 3.5 - 5.0 mEq/L INTERFACE SYSTEM CO2 28 22 - 32 mmol/l INTERFACE SYSTEM CHLORIDE 103 95 - 110 mEq/L INTERFACE SYSTEM CALCIUM 9.9 8.4 - 10.5 mg/dL INTERFACE SYSTEM PHOSPHORUS 4.3 4.2 - 9.0 mg/dL (inactive) INTERFACE SYSTEM MAGNESIUM 1.7 1.6 - 2.3 mg/dL INTERFACE SYSTEM ANION GAP 10 9 - 20 mEq/L INTERFACE SYSTEM OSMOLALITY, CALCULATED 280 275 - 295 mOsm/Kg INTERFACE SYSTEM 2004 2:59 AM LABORER HEADING Abdiaziz Lozano Jr., MD CHEMISTRY ORDERABLES Fi nal Result Performing Organization Address [facility] Phone Number INTERFACE SYSTEM Refer to clinic/hospital department * (ABNORMAL) CBC WITH DIFFERENTIAL (2004 2:59 AM LABORER HEADING) WBC 11.4 9.4 - 34.0 K/ul INTERFACE SYSTEM RBC 4.93 3.00 - 6.20 Mil/ul INTERFACE SYSTEM HEMOGLOBIN 18.3(H) 12.2 - 16.0 g/dL INTERFACE SYSTEM HEMATOCRIT 54.0(H) 38.0 - 52.0 % INTERFACE SYSTEM MCV 109.5 95.0 - 118.0 Fl INTERFACE SYSTEM MCH 37.1(H) 31.0 - 37.0 pg INTERFACE SYSTEM MCHC 33.9 31.0 - 37.0 g/dL INTERFACE SYSTEM RDW 16.0(H) 11.0 - 14.5 percent(babak ctive) INTERFACE SYSTEM PLATELETS 247 140 - 440 K/ul INTERFACE SYSTEM MPV 13.4(H) 8.9 - 12.8 Fl INTERFACE SYSTEM 2004 2:59 AM LABORER HEADING Abdiaziz Lozano Jr., MD HEMATOLOGY ORDERABLES F inal Result Performing Organization Address [facility] Phone Number INTERFACE SYSTEM Refer to clinic/hospital department * POC GLUCOSE (2004 2:09 AM LABORER HEADING) GLUCOSE POC 93 60 - 100 mg/dL INTERFACE SYSTEM 2004 2:09 AM LABORER HEADING Abdiaziz Lozano Jr., MD POINT OF CARE TESTING F inal Result Performing Organization Address [facility] Phone Number INTERFACE SYSTEM Refer to clinic/hospital department * BILIRUBIN, TOTAL AND DIRECT (2004 5:56 PM LABORER HEADING) BILIRUBIN TOTAL 7.1 0.5 - 10.5 mg/day INTERFACE SYSTEM Comment:Normals apply to bab ies less than two weeks of age. BILIRUBIN INDIRECT 7.1 0.6 - 10.5 mg/dL INTERFACE SYSTEM BILIRUBIN DIRECT 0.0 0.0 - 0.6 mg/dL INTERFACE SYSTEM 2004 5:56 PM LABORER HEADING Abdiaziz Lozano Jr., MD CHEMISTRY ORDERABLES Fi nal Result Performing Organization Address [facility] Phone Number INTERFACE SYSTEM Refer to clinic/hospital department * (ABNORMAL) POC GLUCOSE (2004 5:30 PM LABORER HEADING) GLUCOSE POC 114(H) 60 - 100 mg/dL INTERFACE SYSTEM 2004 5:30 PM LABORER HEADING Abdiaziz Lozano Jr., MD POINT OF CARE TESTING F inal Result Performing Organization Address [facility] Phone Number INTERFACE SYSTEM Refer to clinic/hospital department * POC GLUCOSE (2004 11:13 AM LABORER HEADING) GLUCOSE POC 90 60 - 100 mg/dL INTERFACE SYSTEM 2004 11:1 3 AM LABORER HEADING Abdiaziz Lozano Jr., MD POINT OF CARE TESTING F inal Result Performing Organization Address [facility] Phone Number INTERFACE SYSTEM Refer to clinic/hospital department * BILIRUBIN, TOTAL AND DIRECT (2004 5:20 AM LABORER HEADING) BILIRUBIN TOTAL 8.2 0.5 - 10.5 mg/day INTERFACE SYSTEM Comment:Normals apply to bab ies less than two weeks of age. BILIRUBIN INDIRECT 8.2 0.6 - 10.5 mg/dL INTERFACE SYSTEM BILIRUBIN DIRECT 0.0 0.0 - 0.6 mg/dL INTERFACE SYSTEM 2004 5:20 AM LABORER HEADING Abdiaziz Lozano Jr., MD CHEMISTRY ORDERABLES Fi nal Result Performing Organization Address [facility] de Phone Number INTERFACE SYSTEM Refer to clinic/hospital department * PANEL 1 (2004 5:20 AM LABORER HEADING) TRIGLYCERIDE 83 0 - 158 mg/dL INTERFACE SYSTEM GLUCOSE 78 60 - 100 mg/dL INTERFACE SYSTEM BUN 10 7 - 17 mg/dL INTERFACE SYSTEM CREATININE 0.5 0.2 - 0.7 mg/dL INTERFACE SYSTEM SODIUM 137 136 - 145 mEq/L INTERFACE SYSTEM POTASSIUM 4.6 3.5 - 5.0 mEq/L INTERFACE SYSTEM CO2 28 22 - 32 mmol/l INTERFACE SYSTEM CHLORIDE 105 95 - 110 mEq/L INTERFACE SYSTEM CALCIUM 9.6 8.4 - 10.5 mg/dL INTERFACE SYSTEM PHOSPHORUS 4.2 4.2 - 9.0 mg/dL (inactive) INTERFACE SYSTEM MAGNESIUM 1.8 1.6 - 2.3 mg/dL INTERFACE SYSTEM ANION GAP 9 9 - 20 mEq/L INTERFACE SYSTEM OSMOLALITY, CALCULATED 281 275 - 295 mOsm/Kg INTERFACE SYSTEM 2004 5:20 AM LABORER HEADING Abdiaziz Lozano Jr., MD CHEMISTRY ORDERABLES Fi nal Result Performing Organization Address [facility] Phone Number INTERFACE SYSTEM Refer to clinic/hospital department * (ABNORMAL) POC ISTAT 8 (2004 5:13 AM LABORER HEADING) SPECIMEN TYPE Capillary INTERF GE SYSTEM Comment:Sample not collected by [facility] FIO2 21 INTERFACE SYSTEM PH 7.33(L) 7.35 - 7.45 Unit INTERFACE SYSTEM PH TEMP CORRECT 7.33(L) 7.35 - 7.45 Unit INTERFACE SYSTEM PCO2 POC 48(H) 35 - 45 mmHg INTERFACE SYSTEM PCO2 TEMP CORRECT 48(H) 35 - 45 mmHg INTERFACE SYSTEM PO2 54(L) 80 - 105 mmHg INTERFACE SYSTEM PO2 TEMP CORRECT 54(L) 80 - 105 mmHg INTERFACE SYSTEM HCO3 (CALC) POC 25.5 22.0 - 26.0 mmol/l INTERFACE SYSTEM BASE EXCESS 0 -2 - 3 mmol/l INTERFACE SYSTEM HEMOGLOBIN POC 19.4(H) 12.0 - 16.0 g/dL INTERFACE SYSTEM HEMATOCRIT ABG 57(H) 38 - 51 % INTER FACE SYSTEM O2 SATURATION 85(L) 95 - 98 % INTERF GE SYSTEM TCO2 (CALC) POC 27 23 - 27 mmol/l INTERFACE SYSTEM SODIUM 136(L) 138 - 146 mEq/L INTERFACE SYSTEM POTASSIUM 4.4 3.5 - 4.9 mEq/L INTERFACE SYSTEM CALCIUM IONIZED 1.38(H) 1.12 - 1.32 mmol/l INTERFACE SYSTEM GLUCOSE 83 60 - 100 mg/dL INTERFACE SYSTEM 2004 5:13 AM LABORER HEADING Abdiaziz Lozano Jr., MD ABG ORDERABLES Final R esult Performing Organization Address [facility] de Phone Number INTERFACE SYSTEM Refer to clinic/hospital department * GENTAMICIN LEVEL TROUGH (2004 11:50 PM LABORER HEADING) GENTAMICIN, TROUGH <0.5 0.0 - 2.0 mcg/mL INTERFACE SYSTEM Comment:Specimen moderately hemolyzed 2004 11:5 0 PM LABORER HEADING Abdiazzi Lozano Jr., MD CHEMISTRY ORDERABLES Fi nal Result Performing Organization Address [facility] de Phone Number INTERFACE SYSTEM Refer to clinic/hospital department * (ABNORMAL) POC GLUCOSE (2004 11:27 PM LABORER HEADING) GLUCOSE POC 102(H) 50 - 80 mg/dL INTERFACE SYSTEM 2004 11:2 7 PM LABORER HEADING Abdiaziz Lozano Jr., MD POINT OF CARE TESTING F inal Result Performing Organization Address [facility] de Phone Number INTERFACE SYSTEM Refer to clinic/hospital department * BILIRUBIN, TOTAL AND DIRECT (2004 5:58 PM LABORER HEADING) BILIRUBIN TOTAL 9.5 0.5 - 10.5 mg/day INTERFACE SYSTEM Comment:Normals apply to bab ies less than two weeks of age. BILIRUBIN INDIRECT 9.5 0.6 - 10.5 mg/dL INTERFACE SYSTEM BILIRUBIN DIRECT 0.0 0.0 - 0.6 mg/dL INTERFACE SYSTEM 2004 5:58 PM LABORER HEADING Abdiaziz Lozano Jr., MD CHEMISTRY ORDERABLES Fi nal Result Performing Organization Address [facility] de Phone Number INTERFACE SYSTEM Refer to clinic/hospital department * POC GLUCOSE (2004 5:30 PM LABORER HEADING) GLUCOSE POC 79 50 - 80 mg/dL INTERFACE SYSTEM 2004 5:30 PM LABORER HEADING Abdiaziz Lozano Jr., MD POINT OF CARE TESTING F inal Result Performing Organization Address [facility] Phone Number INTERFACE SYSTEM Refer to clinic/hospital department * POC GLUCOSE (2004 11:29 AM LABORER HEADING) GLUCOSE POC 74 50 - 80 mg/dL INTERFACE SYSTEM 2004 11:2 9 AM LABORER HEADING Abdiaziz Lozano Jr., MD POINT OF CARE TESTING F inal Result Performing Organization Address [facility] Phone Number INTERFACE SYSTEM Refer to clinic/hospital department * (ABNORMAL) DIFFERENTIAL, MANUAL (2004 5:27 AM LABORER HEADING) NEUTROPHILS, SEG 43(H) 15 - 35 percent(in active) INTERFACE SYSTEM BANDS 2(L) 6 - 15 % INTERFACE SYSTEM LYMPHOCYTES 45 43 - 53 percent(in active) INTERFACE SYSTEM MONOCYTE 9 8 - 9 percent(in active) INTERFACE SYSTEM EOSINOPHILS 1 0 - 3 % INTERFAC E SYSTEM PLATELET EST. Normal Normal INTERF GE SYSTEM RBC MORPHOLOGY Abnormal(A ) Normal INTERFACE SYSTEM ANISOCYTOSIS 1+(A) None Seen INTERFA CE SYSTEM POIKILOCYTES 1+(A) None Seen INTERFA CE SYSTEM POLYCHROMASIA 1+(A) None Seen INTERF GE SYSTEM 2004 5:27 AM LABORER HEADING Abdiaziz Lozano Jr., MD HEMATOLOGY ORDERABLES C OM Final Result Performing Organization Address [facility] Phone Number INTERFACE SYSTEM Refer to clinic/hospital department * (ABNORMAL) CBC WITH DIFFERENTIAL (2004 5:27 AM LABORER HEADING) WBC 7.8(L) 9.4 - 34.0 K/ul INTERFACE SYSTEM RBC 5.29 3.60 - 6.60 Mil/ul INTERFACE SYSTEM HEMOGLOBIN 20.2(H) 14.2 - 17.2 g/dL INTERFACE SYSTEM HEMATOCRIT 56.7 47.0 - 57.0 % INTERFACE SYSTEM MCV 107.2 95.0 - 118.0 Fl INTERFACE SYSTEM MCH 38.2(H) 31.0 - 37.0 pg INTERFACE SYSTEM MCHC 35.6 31.0 - 37.0 g/dL INTERFACE SYSTEM RDW 16.2(H) 11.0 - 14.5 percent(babak ctive) INTERFACE SYSTEM PLATELETS 145 140 - 440 K/ul INTERFACE SYSTEM MPV ----- 8.9 - 12.8 Fl INTERFACE SYSTEM 2004 5:27 AM LABORER HEADING Abdiaziz Lozano Jr., MD HEMATOLOGY ORDERABLES F inal Result Performing Organization Address [facility] Phone Number INTERFACE SYSTEM Refer to clinic/hospital department * (ABNORMAL) BILIRUBIN, TOTAL AND DIRECT (2004 5:24 AM LABORER HEADING) BILIRUBIN TOTAL 10.6(H) 0.5 - 10.5 mg/day INTERFACE SYSTEM Comment:Normals apply to bab ies less than two weeks of age. BILIRUBIN INDIRECT 10.3 0.6 - 10.5 mg/dL INTERFACE SYSTEM BILIRUBIN DIRECT 0.3 0.0 - 0.6 mg/dL INTERFACE SYSTEM 2004 5:24 AM LABORER HEADING Abdiaziz Lozano Jr., MD CHEMISTRY ORDERABLES Fi nal Result Performing Organization Address City/[facility]/ZIP Co de Phone Number INTERFACE SYSTEM Refer to clinic/hospital department * (ABNORMAL) PANEL 1 (2004 5:24 AM LABORER HEADING) TRIGLYCERIDE 53 0 - 158 mg/dL INTERFACE SYSTEM GLUCOSE 76 50 - 80 mg/dL INTERFACE SYSTEM BUN 12 7 - 17 mg/dL INTERFACE SYSTEM CREATININE 0.5 0.2 - 0.7 mg/dL INTERFACE SYSTEM SODIUM 140 136 - 145 mEq/L INTERFACE SYSTEM POTASSIUM 5.3(H) 3.5 - 5.0 mEq/L INTERFACE SYSTEM Comment:Specimen moderately hemolyzed CO2 28 22 - 32 mmol/l INTERFACE SYSTEM CHLORIDE 106 95 - 110 mEq/L INTERFACE SYSTEM CALCIUM 9.4 8.4 - 10.5 mg/dL INTERFACE SYSTEM PHOSPHORUS 5.1 4.2 - 9.0 mg/dL (inactive) INTERFACE SYSTEM MAGNESIUM 2.0 1.6 - 2.3 mg/dL INTERFACE SYSTEM ANION GAP 11 9 - 20 mEq/L INTERFACE SYSTEM OSMOLALITY, CALCULATED 289 275 - 295 mOsm/Kg INTERFACE SYSTEM 2004 5:24 AM LABORER HEADING Abdiaziz Lozano Jr., MD CHEMISTRY ORDERABLES nal Result Performing Organization Address [facility] [facility] Phone Number INTERFACE SYSTEM Refer to clinic/hospital department * (ABNORMAL) POC ISTAT 8 (2004 5:18 AM LABORER HEADING) SPECIMEN TYPE Capillary INTERF GE SYSTEM FIO2 27 INTERFACE SYSTEM PH 7.34(L) 7.35 - 7.45 Unit INTERFACE SYSTEM PH TEMP CORRECT 7.34(L) 7.35 - 7.45 Unit INTERFACE SYSTEM PCO2 POC 48(H) 35 - 45 mmHg INTERFACE SYSTEM PCO2 TEMP CORRECT 48(H) 35 - 45 mmHg INTERFACE SYSTEM PO2 44(L) 80 - 105 mmHg INTERFACE SYSTEM PO2 TEMP CORRECT 44(L) 80 - 105 mmHg INTERFACE SYSTEM HCO3 (CALC) POC 26.0 22.0 - 26.0 mmol/l INTERFACE SYSTEM BASE EXCESS 0 -2 - 3 mmol/l INTERFACE SYSTEM HEMOGLOBIN POC 19.4(H) 12.0 - 16.0 g/dL INTERFACE SYSTEM HEMATOCRIT ABG 57(H) 38 - 51 % INTER FACE SYSTEM O2 SATURATION 76(L) 95 - 98 % INTERF GE SYSTEM TCO2 (CALC) POC 27 23 - 27 mmol/l INTERFACE SYSTEM SODIUM 136(L) 138 - 146 mEq/L INTERFACE SYSTEM POTASSIUM 4.9 3.5 - 4.9 mEq/L INTERFACE SYSTEM CALCIUM IONIZED 1.21 1.12 - 1.32 mmol/l INTERFACE SYSTEM GLUCOSE 77 50 - 80 mg/dL INTERFACE SYSTEM 2004 5:18 AM LABORER HEADING Abdiaziz Lozano Jr., MD ABG ORDERABLES Final R esult INTERFACE SYSTEM Refer to clinic/hospital department * (ABNORMAL) POC ISTAT 8 (2004 6:19 PM LABORER HEADING) SPECIMEN TYPE Capillary INTERF GE SYSTEM FIO2 0 INTERFACE SYSTEM PH 7.33(L) 7.35 - 7.45 Unit INTERFACE SYSTEM PH TEMP CORRECT 7.33(L) 7.35 - 7.45 Unit INTERFACE SYSTEM PCO2 POC 46(H) 35 - 45 mmHg INTERFACE SYSTEM PCO2 TEMP CORRECT 46(H) 35 - 45 mmHg INTERFACE SYSTEM PO2 59(L) 80 - 105 mmHg INTERFACE SYSTEM PO2 TEMP CORRECT 59(L) 80 - 105 mmHg INTERFACE SYSTEM HCO3 (CALC) POC 23.9 22.0 - 26.0 mmol/l INTERFACE SYSTEM BASE EXCESS -2 -2 - 3 mmol/l INTERFACE SYSTEM HEMOGLOBIN POC 20.4(H) 12.0 - 16.0 g/dL INTERFACE SYSTEM HEMATOCRIT ABG 60(H) 38 - 51 % INTER FACE SYSTEM O2 SATURATION 88(L) 95 - 98 % INTERF GE SYSTEM TCO2 (CALC) POC 25 23 - 27 mmol/l INTERFACE SYSTEM SODIUM 136(L) 138 - 146 mEq/L INTERFACE SYSTEM POTASSIUM 4.8 3.5 - 4.9 mEq/L INTERFACE SYSTEM CALCIUM IONIZED 1.23 1.12 - 1.32 mmol/l INTERFACE SYSTEM GLUCOSE 72 50 - 80 mg/dL INTERFACE SYSTEM 2004 6:19 PM LABORER HEADING Abdiaziz Lozano Jr., MD ABG ORDERABLES Final R esult Performing Organization Address [facility] Phone Number INTERFACE SYSTEM Refer to clinic/hospital department * (ABNORMAL) BILIRUBIN, TOTAL AND DIRECT (2004 6:18 PM LABORER HEADING) BILIRUBIN TOTAL 10.9(H) 0.5 - 10.5 mg/day INTERFACE SYSTEM Comment: Normals apply to babies less than two weeks of age. Specimen slightly hemolyzed BILIRUBIN INDIRECT 10.5 0.6 - 10.5 mg/dL INTERFACE SYSTEM BILIRUBIN DIRECT 0.4 0.0 - 0.6 mg/dL INTERFACE SYSTEM 2004 6:18 PM LABORER HEADING Abdiaziz Lozano Jr., MD CHEMISTRY ORDERABLES Fi nal Result Performing Organization Address [facility] Phone Number INTERFACE SYSTEM Refer to clinic/hospital department * METABOLIC SCREEN (2004 5:21 AM LABORER HEADING) PKU Sent to Reference Lab INTERFACE SYSTEM 2004 5:2 1 AM LABORER HEADING Abdiaziz Lozano Jr., MD CHEMISTRY ORDERABLES Fi nal Result Performing Organization Address [facility] Phone Number INTERFACE SYSTEM Refer to clinic/hospital department * (ABNORMAL) BILIRUBIN, TOTAL AND DIRECT (2004 5:19 AM LABORER HEADING) BILIRUBIN TOTAL 11.7(H) 0.5 - 10.5 mg/day INTERFACE SYSTEM Comment:Normals apply to bab ies less than two weeks of age. BILIRUBIN INDIRECT 11.6(H) 0.6 - 10.5 mg/dL INTERFACE SYSTEM BILIRUBIN DIRECT 0.2 0.0 - 0.6 mg/dL INTERFACE SYSTEM 2004 5:19 AM LABORER HEADING Abdiaziz Lozano Jr., MD CHEMISTRY ORDERABLES Fi nal Result Performing Organization Address [facility] Phone Number INTERFACE SYSTEM Refer to clinic/hospital department * (ABNORMAL) DIFFERENTIAL, MANUAL (2004 5:19 AM LABORER HEADING) NEUTROPHILS, SEG 32 15 - 35 percent(in active) INTERFACE SYSTEM LYMPHOCYTES 62(H) 43 - 53 percent(in active) INTERFACE SYSTEM MONOCYTE 2(L) 8 - 9 percent(in active) INTERFACE SYSTEM EOSINOPHILS 4(H) 0 - 3 % INTERFAC E SYSTEM PLATELET EST. Normal Normal INTERF GE SYSTEM RBC MORPHOLOGY Abnormal(A ) Normal INTERFACE SYSTEM ANISOCYTOSIS 1+(A) None Seen INTERFA CE SYSTEM POIKILOCYTES 1+(A) None Seen INTERFA CE SYSTEM POLYCHROMASIA 1+(A) None Seen INTERF GE SYSTEM 2004 5:19 AM LABORER HEADING Abdiaziz Lozano Jr., MD HEMATOLOGY ORDERABLES C OM Final Result Performing Organization Address [facility] Phone Number INTERFACE SYSTEM Refer to clinic/hospital department * (ABNORMAL) CBC WITH DIFFERENTIAL (2004 5:19 AM LABORER HEADING) Pathologist [facility] WBC 5.9(L) 9.4 - 34.0 K/ul INTERFACE SYSTEM RBC 5.40 3.60 - 6.60 Mil/ul INTERFACE SYSTEM HEMOGLOBIN 20.8(H) 14.2 - 17.2 g/dL INTERFACE SYSTEM HEMATOCRIT 57.9(H) 47.0 - 57.0 % INTERFACE SYSTEM MCV 107.2 95.0 - 118.0 Fl INTERFACE SYSTEM MCH 38.5(H) 31.0 - 37.0 pg INTERFACE SYSTEM MCHC 35.9 31.0 - 37.0 g/dL INTERFACE SYSTEM RDW 16.6(H) 11.0 - 14.5 percent(babak ctive) INTERFACE SYSTEM PLATELETS 164 140 - 440 K/ul INTERFACE SYSTEM MPV .... 8.9 - 12.8 Fl INTERFACE SYSTEM 2004 5:19 AM LABORER HEADING Abdiaziz Lozano Jr., MD HEMATOLOGY ORDERABLES F inal Result Performing Organization Address [facility] Co de Phone Number INTERFACE SYSTEM Refer to clinic/hospital department * (ABNORMAL) PANEL 1 (2004 5:19 AM LABORER HEADING) TRIGLYCERIDE 53 0 - 158 mg/dL INTERFACE SYSTEM GLUCOSE 76 50 - 80 mg/dL INTERFACE SYSTEM BUN 10 7 - 17 mg/dL INTERFACE SYSTEM CREATININE 0.5 0.2 - 0.7 mg/dL INTERFACE SYSTEM SODIUM 138 136 - 145 mEq/L INTERFACE SYSTEM POTASSIUM 5.8(H) 3.5 - 5.0 mEq/L INTERFACE SYSTEM CO2 27 22 - 32 mmol/l INTERFACE SYSTEM CHLORIDE 106 95 - 110 mEq/L INTERFACE SYSTEM CALCIUM 9.0 8.4 - 10.5 mg/dL INTERFACE SYSTEM PHOSPHORUS 5.7 4.2 - 9.0 mg/dL (inactive) INTERFACE SYSTEM ANION GAP 11 9 - 20 mEq/L INTERFACE SYSTEM MAGNESIUM 2.0 1.6 - 2.3 mg/dL INTERFACE SYSTEM 2004 5:19 AM LABORER HEADING Abdiaziz Lozano Jr., MD CHEMISTRY ORDERABLES Fi nal Result INTERFACE SYSTEM Refer to clinic/hospital department * (ABNORMAL) POC ISTAT 8 (2004 5:10 AM LABORER HEADING) SPECIMEN TYPE Capillary INTERF GE SYSTEM Comment: Critical result performed at the point of care. Pulse OX: 95 FIO2 30 INTERFACE SYSTEM PH 7.38 7.35 - 7.45 Unit INTERFACE SYSTEM PH TEMP CORRECT 7.38 7.35 - 7.45 Unit INTERFACE SYSTEM PCO2 POC 39 35 - 45 mmHg INTERFACE SYSTEM PCO2 TEMP CORRECT 39 35 - 45 mmHg INTERFACE SYSTEM PO2 56(L) 80 - 105 mmHg INTERFACE SYSTEM PO2 TEMP CORRECT 56(L) 80 - 105 mmHg INTERFACE SYSTEM HCO3 (CALC) POC 23.4 22.0 - 26.0 mmol/l INTERFACE SYSTEM BASE EXCESS -2 -2 - 3 mmol/l INTERFACE SYSTEM HEMOGLOBIN POC 21.1(H) 12.0 - 16.0 g/dL INTERFACE SYSTEM HEMATOCRIT ABG 62(AA) 38 - 51 % INTER FACE SYSTEM O2 SATURATION 88(L) 95 - 98 % INTERF GE SYSTEM TCO2 (CALC) POC 25 23 - 27 mmol/l INTERFACE SYSTEM SODIUM 136(L) 138 - 146 mEq/L INTERFACE SYSTEM POTASSIUM 5.4(H) 3.5 - 4.9 mEq/L INTERFACE SYSTEM CALCIUM IONIZED 1.23 1.12 - 1.32 mmol/l INTERFACE SYSTEM GLUCOSE 77 50 - 80 mg/dL INTERFACE SYSTEM 2004 5:10 AM LABORER HEADING MD LISSA Gibson Jr. ORDERABLES Final R esult Performing Organization Address [facility] de Phone Number INTERFACE SYSTEM Refer to clinic/hospital department * (ABNORMAL) POC ISTAT 8 (2004 6:05 PM LABORER HEADING) SPECIMEN TYPE Capillary INTERF GE SYSTEM Comment: Critical result performed at the point of care. Pulse OX: 94 FIO2 34 INTERFACE SYSTEM PH 7.32(L) 7.35 - 7.45 Unit INTERFACE SYSTEM PH TEMP CORRECT 7.32(L) 7.35 - 7.45 Unit INTERFACE SYSTEM PCO2 POC 48(H) 35 - 45 mmHg INTERFACE SYSTEM PCO2 TEMP CORRECT 48(H) 35 - 45 mmHg INTERFACE SYSTEM PO2 51(L) 80 - 105 mmHg INTERFACE SYSTEM PO2 TEMP CORRECT 51(L) 80 - 105 mmHg INTERFACE SYSTEM HCO3 (CALC) POC 24.5 22.0 - 26.0 mmol/l INTERFACE SYSTEM BASE EXCESS -2 -2 - 3 mmol/l INTERFACE SYSTEM HEMOGLOBIN POC 21.8(H) 12.0 - 16.0 g/dL INTERFACE SYSTEM HEMATOCRIT ABG 64(AA) 38 - 51 % INTER FACE SYSTEM O2 SATURATION 82(L) 95 - 98 % INTERF GE SYSTEM TCO2 (CALC) POC 26 23 - 27 mmol/l INTERFACE SYSTEM SODIUM 136(L) 138 - 146 mEq/L INTERFACE SYSTEM POTASSIUM 5.0(H) 3.5 - 4.9 mEq/L INTERFACE SYSTEM CALCIUM IONIZED 1.25 1.12 - 1.32 mmol/l INTERFACE SYSTEM GLUCOSE 80 50 - 80 mg/dL INTERFACE SYSTEM 2004 6:05 PM LABORER HEADING MD LISSA Gibson Jr. ORDERABLES Final R esult Performing Organization Address [facility]/ZIP Co de Phone Number INTERFACE SYSTEM Refer to clinic/hospital department * (ABNORMAL) BILIRUBIN, TOTAL AND DIRECT (2004 5:38 PM LABORER HEADING) BILIRUBIN TOTAL 11.0(H) 0.5 - 10.5 mg/day INTERFACE SYSTEM Comment:Normals apply to bab ies less than two weeks of age. BILIRUBIN INDIRECT 11.0(H) 0.6 - 10.5 mg/dL INTERFACE SYSTEM BILIRUBIN DIRECT 0.0 0.0 - 0.6 mg/dL INTERFACE SYSTEM 2004 5:38 PM LABORER HEADING Abdiaziz Lozano Jr., MD CHEMISTRY ORDERABLES Fi nal Result Performing Organization Address [facility] Co de Phone Number INTERFACE SYSTEM Refer to clinic/hospital department * (ABNORMAL) POC ISTAT 8 (2004 1:54 PM LABORER HEADING) Pathologist [facility] SPECIMEN TYPE Capillary INTERF GE SYSTEM Comment: Critical result performed at the point of care. Pulse OX: 92 FIO2 34 INTERFACE SYSTEM PH 7.30(L) 7.35 - 7.45 Unit INTERFACE SYSTEM PH TEMP CORRECT 7.30(L) 7.35 - 7.45 Unit INTERFACE SYSTEM PCO2 POC 49(H) 35 - 45 mmHg INTERFACE SYSTEM PCO2 TEMP CORRECT 49(H) 35 - 45 mmHg INTERFACE SYSTEM PO2 48(L) 80 - 105 mmHg INTERFACE SYSTEM PO2 TEMP CORRECT 48(L) 80 - 105 mmHg INTERFACE SYSTEM HCO3 (CALC) POC 24.3 22.0 - 26.0 mmol/l INTERFACE SYSTEM BASE EXCESS -2 -2 - 3 mmol/l INTERFACE SYSTEM HEMOGLOBIN POC 22.4(H) 12.0 - 16.0 g/dL INTERFACE SYSTEM HEMATOCRIT ABG 66(AA) 38 - 51 % INTER FACE SYSTEM O2 SATURATION 79(L) 95 - 98 % INTERF GE SYSTEM TCO2 (CALC) POC 26 23 - 27 mmol/l INTERFACE SYSTEM SODIUM 135(L) 138 - 146 mEq/L INTERFACE SYSTEM POTASSIUM 4.8 3.5 - 4.9 mEq/L INTERFACE SYSTEM CALCIUM IONIZED 1.20 1.12 - 1.32 mmol/l INTERFACE SYSTEM GLUCOSE 71 50 - 80 mg/dL INTERFACE SYSTEM 2004 1:54 PM LABORER HEADING Abdiaziz Lozaon Jr., MD ABG ORDERABLES Final R esult Performing Organization Address [facility] Phone Number INTERFACE SYSTEM Refer to clinic/hospital department * (ABNORMAL) BILIRUBIN, TOTAL AND DIRECT (2004 5:13 AM LABORER HEADING) BILIRUBIN TOTAL 12.8(H) 0.5 - 10.5 mg/day INTERFACE SYSTEM Comment:Normals apply to bab ies less than two weeks of age. BILIRUBIN INDIRECT 12.5(H) 0.6 - 10.5 mg/dL INTERFACE SYSTEM BILIRUBIN DIRECT 0.3 0.0 - 0.6 mg/dL INTERFACE SYSTEM 2004 5:13 AM LABORER HEADING Abdiaziz Lozano Jr., MD CHEMISTRY ORDERABLES Fi nal Result Performing Organization Address [facility] Phone Number INTERFACE SYSTEM Refer to clinic/hospital department * (ABNORMAL) DIFFERENTIAL, MANUAL (2004 5:13 AM LABORER HEADING) NEUTROPHILS, SEG 57(H) 15 - 35 percent(in active) INTERFACE SYSTEM BANDS 1(L) 6 - 15 % INTERFACE SYSTEM LYMPHOCYTES 37(L) 43 - 53 percent(in active) INTERFACE SYSTEM MONOCYTE 3(L) 8 - 9 percent(in active) INTERFACE SYSTEM EOSINOPHILS 2 0 - 3 % INTERFAC E SYSTEM PLATELET EST. Normal Normal INTERF GE SYSTEM RBC MORPHOLOGY Abnormal(A ) Normal INTERFACE SYSTEM ANISOCYTOSIS 1+(A) None Seen INTERFA CE SYSTEM POIKILOCYTES 1+(A) None Seen INTERFA CE SYSTEM POLYCHROMASIA 1+(A) None Seen INTERF GE SYSTEM 2004 5:13 AM LABORER HEADING Abdiaziz Lozano Jr., MD HEMATOLOGY ORDERABLES C OM Final Result Performing Organization Address [facility] Phone Number INTERFACE SYSTEM Refer to clinic/hospital department * (ABNORMAL) PANEL 1 (2004 5:13 AM LABORER HEADING) TRIGLYCERIDE 131 0 - 158 mg/dL INTERFACE SYSTEM GLUCOSE 65 50 - 80 mg/dL INTERFACE SYSTEM BUN 7 7 - 17 mg/dL INTERFACE SYSTEM CREATININE 0.5 0.2 - 0.7 mg/dL INTERFACE SYSTEM SODIUM 138 136 - 145 mEq/L INTERFACE SYSTEM POTASSIUM 6.0(H) 3.5 - 5.0 mEq/L INTERFACE SYSTEM Comment:GROSSLY HEMOLYZED CO2 26 22 - 32 mmol/l INTERFACE SYSTEM CHLORIDE 105 95 - 110 mEq/L INTERFACE SYSTEM CALCIUM 8.5 8.4 - 10.5 mg/dL INTERFACE SYSTEM PHOSPHORUS 6.3 4.2 - 9.0 mg/dL (inactive) INTERFACE SYSTEM MAGNESIUM 2.1 1.6 - 2.3 mg/dL INTERFACE SYSTEM ANION GAP 13 9 - 20 mEq/L INTERFACE SYSTEM OSMOLALITY, CALCULATED 284 275 - 295 mOsm/Kg INTERFACE SYSTEM 2004 5:13 AM LABORER HEADING Abdiaziz Lozano Jr., MD CHEMISTRY ORDERABLES Fi nal Result INTERFACE SYSTEM Refer to clinic/hospital department * (ABNORMAL) CBC WITH DIFFERENTIAL (2004 5:13 AM LABORER HEADING) WBC 8.5(L) 9.4 - 34.0 K/ul INTERFACE SYSTEM RBC 5.72 3.60 - 6.60 Mil/ul INTERFACE SYSTEM HEMOGLOBIN 21.4(H) 14.2 - 17.2 g/dL INTERFACE SYSTEM HEMATOCRIT 62.1(H) 47.0 - 57.0 % INTERFACE SYSTEM MCV 108.6 95.0 - 118.0 Fl INTERFACE SYSTEM MCH 37.4(H) 31.0 - 37.0 pg INTERFACE SYSTEM MCHC 34.5 31.0 - 37.0 g/dL INTERFACE SYSTEM RDW 16.9(H) 11.0 - 14.5 percent(in active) INTERFACE SYSTEM PLATELETS 190 140 - 440 K/ul INTERFACE SYSTEM MPV 12.8 8.9 - 12.8 Fl INTERFACE SYSTEM NEUTROPHILS 39.4(L) 42.2 - 75.2 percent(in active) INTERFACE SYSTEM LYMPHOCYTES 50.8 43.0 - 53.0 percent(in active) INTERFACE SYSTEM MONOCYTES 4.7(L) 8.0 - 9.0 percent(in active) INTERFACE SYSTEM EOSINOPHILS 4.3 0.0 - 7.0 % INTERFACE SYSTEM BASOPHILS 0.8 0.0 - 1.0 percent(in active) INTERFACE SYSTEM NEUTROPHIL ABSOLUTE 3.4 2.0 - 8.0 K/uL INTERFACE SYSTEM LYMPHOCYTE ABSOLUTE 4.3(H) 1.2 - 4.0 K/ul INTERFACE SYSTEM MONOCYTE ABSOLUTE 0.4 0.1 - 0.6 K/ul INTERFACE SYSTEM EOSINOPHIL ABSOLUTE 0.4 0.0 - 0.7 K/ul INTERFACE SYSTEM BASOPHILS ABSOLUTE 0.1 0.0 - 0.2 K/ul INTERFACE SYSTEM 2004 5:13 AM LABORER HEADING Abdiaziz Lozano Jr., MD HEMATOLOGY ORDERABLES F inal Result Performing Organization Address [facility] Co de Phone Number INTERFACE SYSTEM Refer to clinic/hospital department * (ABNORMAL) POC ISTAT 8 (2004 5:08 AM LABORER HEADING) SPECIMEN TYPE Capillary INTERF GE SYSTEM Comment: Critical result performed at the point of care. Pulse OX: 97 FIO2 37 INTERFACE SYSTEM PH 7.33(L) 7.35 - 7.45 Unit INTERFACE SYSTEM PH TEMP CORRECT 7.33(L) 7.35 - 7.45 Unit INTERFACE SYSTEM PCO2 POC 44 35 - 45 mmHg INTERFACE SYSTEM PCO2 TEMP CORRECT 44 35 - 45 mmHg INTERFACE SYSTEM PO2 44(L) 80 - 105 mmHg INTERFACE SYSTEM PO2 TEMP CORRECT 44(L) 80 - 105 mmHg INTERFACE SYSTEM HCO3 (CALC) POC 23.2 22.0 - 26.0 mmol/l INTERFACE SYSTEM BASE EXCESS -3(L) -2 - 3 mmol/l INTERFACE SYSTEM HEMOGLOBIN POC 21.8(H) 12.0 - 16.0 g/dL INTERFACE SYSTEM HEMATOCRIT ABG 64(AA) 38 - 51 % INTER FACE SYSTEM O2 SATURATION 76(L) 95 - 98 % INTERF GE SYSTEM TCO2 (CALC) POC 24 23 - 27 mmol/l INTERFACE SYSTEM SODIUM 136(L) 138 - 146 mEq/L INTERFACE SYSTEM POTASSIUM 5.2(H) 3.5 - 4.9 mEq/L INTERFACE SYSTEM CALCIUM IONIZED 1.20 1.12 - 1.32 mmol/l INTERFACE SYSTEM GLUCOSE 68 50 - 80 mg/dL INTERFACE SYSTEM 2004 5:08 AM LABORER HEADING Abdiaziz Lozano Jr., MD ABG ORDERABLES Final R esult INTERFACE SYSTEM Refer to clinic/hospital department * (ABNORMAL) POC ISTAT 8 (2004 11:09 PM LABORER HEADING) SPECIMEN TYPE Capillary INTERF GE SYSTEM Comment: Critical result performed at the point of care. Pulse OX: 94 FIO2 47 INTERFACE SYSTEM PH 7.27(L) 7.35 - 7.45 Unit INTERFACE SYSTEM PH TEMP CORRECT 7.27(L) 7.35 - 7.45 Unit INTERFACE SYSTEM PCO2 POC 44 35 - 45 mmHg INTERFACE SYSTEM PCO2 TEMP CORRECT 44 35 - 45 mmHg INTERFACE SYSTEM PO2 50(L) 80 - 105 mmHg INTERFACE SYSTEM PO2 TEMP CORRECT 50(L) 80 - 105 mmHg INTERFACE SYSTEM HCO3 (CALC) POC 20.3(L) 22.0 - 26.0 mmol/l INTERFACE SYSTEM BASE EXCESS -7(L) -2 - 3 mmol/l INTERFACE SYSTEM HEMOGLOBIN POC 22.4(H) 12.0 - 16.0 g/dL INTERFACE SYSTEM HEMATOCRIT ABG 66(AA) 38 - 51 % INTER FACE SYSTEM O2 SATURATION 79(L) 95 - 98 % INTERF GE SYSTEM TCO2 (CALC) POC 22(L) 23 - 27 mmol/l INTERFACE SYSTEM SODIUM 136(L) 138 - 146 mEq/L INTERFACE SYSTEM POTASSIUM 5.6(H) 3.5 - 4.9 mEq/L INTERFACE SYSTEM CALCIUM IONIZED 1.23 1.12 - 1.32 mmol/l INTERFACE SYSTEM GLUCOSE 82(H) 50 - 80 mg/dL INTERFACE SYSTEM 2004 11:0 9 PM LABORER HEADING Abdiaziz Lozano Jr., MD ABG ORDERABLES Final R esult INTERFACE SYSTEM Refer to clinic/hospital department * (ABNORMAL) BILIRUBIN, TOTAL AND DIRECT (2004 6:18 PM LABORER HEADING) BILIRUBIN TOTAL 13.3(H) 0.5 - 10.5 mg/day INTERFACE SYSTEM Comment:Normals apply to bab ies less than two weeks of age. BILIRUBIN INDIRECT 13.3(H) 0.6 - 10.5 mg/dL INTERFACE SYSTEM BILIRUBIN DIRECT 0.0 0.0 - 0.6 mg/dL INTERFACE SYSTEM 2004 6:18 PM LABORER HEADING Abdiaziz Lozano Jr., MD CHEMISTRY ORDERABLES Fi nal Result Performing Organization Address [facility] de Phone Number INTERFACE SYSTEM Refer to clinic/hospital department * (ABNORMAL) POC ISTAT 8 (2004 6:14 PM LABORER HEADING) SPECIMEN TYPE Capillary INTERF GE SYSTEM Comment: Critical result performed at the point of care. Tidal volume: 96 FIO2 48 INTERFACE SYSTEM PH 7.30(L) 7.35 - 7.45 Unit INTERFACE SYSTEM PH TEMP CORRECT 7.30(L) 7.35 - 7.45 Unit INTERFACE SYSTEM PCO2 POC 46(H) 35 - 45 mmHg INTERFACE SYSTEM PCO2 TEMP CORRECT 46(H) 35 - 45 mmHg INTERFACE SYSTEM PO2 43(AA) 80 - 105 mmHg INTERFACE SYSTEM PO2 TEMP CORRECT 43(AA) 80 - 105 mmHg INTERFACE SYSTEM HCO3 (CALC) POC 22.4 22.0 - 26.0 mmol/l INTERFACE SYSTEM BASE EXCESS -4(L) -2 - 3 mmol/l INTERFACE SYSTEM HEMOGLOBIN POC 21.1(H) 12.0 - 16.0 g/dL INTERFACE SYSTEM HEMATOCRIT ABG 62(AA) 38 - 51 % INTER FACE SYSTEM O2 SATURATION 74(L) 95 - 98 % INTERF GE SYSTEM TCO2 (CALC) POC 24 23 - 27 mmol/l INTERFACE SYSTEM SODIUM 139 138 - 146 mEq/L INTERFACE SYSTEM POTASSIUM 5.2(H) 3.5 - 4.9 mEq/L INTERFACE SYSTEM CALCIUM IONIZED 1.17 1.12 - 1.32 mmol/l INTERFACE SYSTEM GLUCOSE 80 50 - 80 mg/dL INTERFACE SYSTEM 2004 6:14 PM LABORER HEADING Abdiaziz Lozano Jr., MD ABG ORDERABLES Final R esult INTERFACE SYSTEM Refer to clinic/hospital department * POC GLUCOSE (2004 10:04 AM LABORER HEADING) GLUCOSE POC 63 50 - 80 mg/dL INTERFACE SYSTEM 2004 10:0 4 AM LABORER HEADING Abdiaziz Lozano Jr., MD POINT OF CARE TESTING F inal Result Performing Organization Address [facility] Co de Phone Number INTERFACE SYSTEM Refer to clinic/hospital department * (ABNORMAL) BILIRUBIN, TOTAL AND DIRECT (2004 5:17 AM LABORER HEADING) BILIRUBIN TOTAL 14.7(H) 0.5 - 10.5 mg/day INTERFACE SYSTEM Comment:Normals apply to bab ies less than two weeks of age. BILIRUBIN INDIRECT 14.5(H) 0.6 - 10.5 mg/dL INTERFACE SYSTEM BILIRUBIN DIRECT 0.2 0.0 - 0.6 mg/dL INTERFACE SYSTEM 2004 5:17 AM LABORER HEADING Abdiaziz Lozano Jr., MD CHEMISTRY ORDERABLES Fi nal Result Performing Organization Address [facility] Phone Number INTERFACE SYSTEM Refer to clinic/hospital department * (ABNORMAL) PANEL 1 (2004 5:17 AM LABORER HEADING) TRIGLYCERIDE 97 0 - 158 mg/dL INTERFACE SYSTEM GLUCOSE 102(H) 50 - 80 mg/dL INTERFACE SYSTEM BUN 12 7 - 17 mg/dL INTERFACE SYSTEM CREATININE 0.7 0.2 - 0.7 mg/dL INTERFACE SYSTEM SODIUM 145 136 - 145 mEq/L INTERFACE SYSTEM POTASSIUM 5.2(H) 3.5 - 5.0 mEq/L INTERFACE SYSTEM Comment:Specimen slightly he molyzed CO2 24 22 - 32 mmol/l INTERFACE SYSTEM CHLORIDE 114(H) 95 - 110 mEq/L INTERFACE SYSTEM CALCIUM 7.7(L) 8.4 - 10.5 mg/dL INTERFACE SYSTEM PHOSPHORUS 5.8 4.2 - 9.0 mg/dL (inactive) INTERFACE SYSTEM MAGNESIUM 3.1(H) 1.6 - 2.3 mg/dL INTERFACE SYSTEM ANION GAP 12 9 - 20 mEq/L INTERFACE SYSTEM OSMOLALITY, CALCULATED 299(H) 275 - 295 mOsm/Kg INTERFACE SYSTEM 2004 5:17 AM LABORER HEADING Abdiaziz Lozano Jr., MD CHEMISTRY ORDERABLES Fi nal Result Performing Organization Address [facility] Phone Number INTERFACE SYSTEM Refer to clinic/hospital department * (ABNORMAL) DIFFERENTIAL, MANUAL (2004 5:17 AM LABORER HEADING) NEUTROPHILS, SEG 71(H) 15 - 35 percent(in active) INTERFACE SYSTEM LYMPHOCYTES 24(L) 26 - 36 % INTERFAC E SYSTEM MONOCYTE 5 5 - 6 % INTERFACE SYSTEM PLATELET EST. Normal Normal INTERF GE SYSTEM RBC MORPHOLOGY Abnormal(A ) Normal INTERFACE SYSTEM POLYCHROMASIA 1+(A) None Seen INTERF GE SYSTEM 2004 5:17 AM LABORER HEADING Abdiaziz Lozano Jr., MD HEMATOLOGY ORDERABLES C OM Final Result Performing Organization Address [facility] Phone Number INTERFACE SYSTEM Refer to clinic/hospital department * (ABNORMAL) CBC WITH DIFFERENTIAL (2004 5:17 AM LABORER HEADING) WBC 9.4 9.4 - 34.0 K/ul INTERFACE SYSTEM Comment: WBC Corrected for Nucleated RBC'S RBC 4.80 4.70 - 6.10 Mil/ul INTERFACE SYSTEM HEMOGLOBIN 18.3 17.4 - 22.2 g/dL INTERFACE SYSTEM HEMATOCRIT 52.5(L) 58.0 - 74.0 % INTERFACE SYSTEM MCV 109.4 108.0 - 136.0 Fl INTERFACE SYSTEM MCH 38.1(H) 31.0 - 37.0 pg INTERFACE SYSTEM MCHC 34.9 31.0 - 37.0 g/dL INTERFACE SYSTEM RDW 17.2(H) 11.0 - 14.5 percent(in active) INTERFACE SYSTEM PLATELETS 153 140 - 440 K/ul INTERFACE SYSTEM MPV 12.3 8.9 - 12.8 Fl INTERFACE SYSTEM NRBC 1 <=1 INTERFACE SYSTEM 2004 5:17 AM LABORER HEADING Abdiaziz Lozano Jr., MD HEMATOLOGY ORDERABLES F inal Result Performing Organization Address [facility] de Phone Number INTERFACE SYSTEM Refer to clinic/hospital department * (ABNORMAL) POC ISTAT 8 (2004 5:12 AM LABORER HEADING) SPECIMEN TYPE Capillary INTERF GE SYSTEM Comment:Pulse OX: 97 FIO2 60 INTERFACE SYSTEM PH 7.31(L) 7.35 - 7.45 Unit INTERFACE SYSTEM PH TEMP CORRECT 7.31(L) 7.35 - 7.45 Unit INTERFACE SYSTEM PCO2 POC 45 35 - 45 mmHg INTERFACE SYSTEM PCO2 TEMP CORRECT 45 35 - 45 mmHg INTERFACE SYSTEM PO2 63(L) 80 - 105 mmHg INTERFACE SYSTEM PO2 TEMP CORRECT 63(L) 80 - 105 mmHg INTERFACE SYSTEM HCO3 (CALC) POC 22.6 22.0 - 26.0 mmol/l INTERFACE SYSTEM BASE EXCESS -4(L) -2 - 3 mmol/l INTERFACE SYSTEM HEMOGLOBIN POC 17.7(H) 12.0 - 16.0 g/dL INTERFACE SYSTEM HEMATOCRIT ABG 52(H) 38 - 51 % INTER FACE SYSTEM O2 SATURATION 90(L) 95 - 98 % INTERF GE SYSTEM TCO2 (CALC) POC 24 23 - 27 mmol/l INTERFACE SYSTEM SODIUM 142 138 - 146 mEq/L INTERFACE SYSTEM POTASSIUM 5.2(H) 3.5 - 4.9 mEq/L INTERFACE SYSTEM CALCIUM IONIZED 1.09(L) 1.12 - 1.32 mmol/l INTERFACE SYSTEM GLUCOSE 107(H) 50 - 80 mg/dL INTERFACE SYSTEM 2004 5:12 AM LABORER HEADING Abdiaziz Lozano Jr., MD ABG ORDERABLES Final R esult Performing Organization Address [facility] Co de Phone Number INTERFACE SYSTEM Refer to clinic/hospital department * (ABNORMAL) BILIRUBIN, TOTAL AND DIRECT (2004 11:01 PM LABORER HEADING) BILIRUBIN TOTAL 15.3(H) 0.5 - 10.5 mg/day INTERFACE SYSTEM Comment:Normals apply to bab ies less than two weeks of age. BILIRUBIN INDIRECT 15.3(H) 0.6 - 10.5 mg/dL INTERFACE SYSTEM BILIRUBIN DIRECT 0.0 0.0 - 0.6 mg/dL INTERFACE SYSTEM 2004 11:0 1 PM LABORER HEADING Abdiaziz Lozano Jr., MD CHEMISTRY ORDERABLES Fi nal Result INTERFACE SYSTEM Refer to clinic/hospital department * (ABNORMAL) POC ISTAT 8 (2004 8:45 PM LABORER HEADING) SPECIMEN TYPE Arterial INTERF GE SYSTEM Comment:Pulse OX: 92 FIO2 35 INTERFACE SYSTEM PH 7.33(L) 7.35 - 7.45 Unit INTERFACE SYSTEM PH TEMP CORRECT 7.33(L) 7.35 - 7.45 Unit INTERFACE SYSTEM PCO2 POC 34(L) 35 - 45 mmHg INTERFACE SYSTEM PCO2 TEMP CORRECT 34(L) 35 - 45 mmHg INTERFACE SYSTEM PO2 46(L) 80 - 105 mmHg INTERFACE SYSTEM PO2 TEMP CORRECT 46(L) 80 - 105 mmHg INTERFACE SYSTEM HCO3 (CALC) POC 17.6(L) 22.0 - 26.0 mmol/l INTERFACE SYSTEM BASE EXCESS -8(L) -2 - 3 mmol/l INTERFACE SYSTEM HEMOGLOBIN POC 20.4(H) 12.0 - 16.0 g/dL INTERFACE SYSTEM HEMATOCRIT ABG 60(H) 38 - 51 % INTER FACE SYSTEM O2 SATURATION 79(L) 95 - 98 % INTERF GE SYSTEM TCO2 (CALC) POC 19(L) 23 - 27 mmol/l INTERFACE SYSTEM SODIUM 140 138 - 146 mEq/L INTERFACE SYSTEM POTASSIUM 5.7(H) 3.5 - 4.9 mEq/L INTERFACE SYSTEM CALCIUM IONIZED 1.03(L) 1.12 - 1.32 mmol/l INTERFACE SYSTEM GLUCOSE 92(H) 50 - 80 mg/dL INTERFACE SYSTEM 2004 8:45 PM LABORER HEADING us Abdiaziz Lozano Jr., MD ABG ORDERABLES Final R esult INTERFACE SYSTEM Refer to clinic/hospital department documented in this encounter Visit Diagnoses Diagnosis Respiratory distress syndrome in (CMS/HCC)- Primary Respiratory distress syndrome in documented in this encounter
--- OUTSIDE RECORDS SUMMARY | 2025-06-16 20:28 | XMS_ITS | Clinical Summary ---
Author Organization [facility] Administrative Offices Address [address] [place] [address] Care Team Providers Care Retail Maintenance Technician Name Role Phone Severino Cruz MD Primary Care Provider [phone] Allergies Active Allergy Reactions Criticality Noted Date Comments Benzoin Other (See Comments) 03/16/2023 Medication caused pt to break out in blisters. Medications OTHER Provider please include Medication name, dose, route and frequency Active valacyclovir HCl (VALACYCLOVIR ORAL) Take by mouth daily. Active Active Problems No known active problems Encounters Date Type Department Care Team Description 04/30/2025 11:27 PM CDT - 04/30/2025 11:54 PM CDT Emergency [facility] Emergency Medicine [address] [place] [id number] Adama Guzman MD Acute otitis media, unspecified otitis media type (Primary Dx) Discharge Disposition: Home or Self Care 04/30/2025 Travel from Last 3 Months Immunizations Immunization Administration Dates Next Due (M-M-R II/PRIORIX)(12 MO UP) MEASLES, MUMPS AND RUBELLA VIRUS VACCINE, 0.5 ML IM/SUBCUT 12/30/2009,03/15/2006 (VARIVAX)(12 MOS UP)VARICELL A VIRUS VACCINE (PF) 0.5 ML, SUB CUT 12/30/2009,03/15/2006 Dt Dtp Dtap Vaccine 12/30/2009, 6,03/15/2006,2004 HIB, Unspecified Formulation 06/09/2006,03/15/20 06,02/04/2005 Hepatitis A Vaccine 07/23/2008,04/21/2006 Hepatitis B Vaccine 07/23/2008, 5,2004,2004 IPV/OPV 12/30/2009,03/15/2006,02/04/2005 Family History Medical History Relation Name Comments Colon Cancer Neg Hx Social History Tobacco Use Types Packs/Day Years Used Date Smoking Tobacco: Never Smokeless Tobacco: Never Alcohol Use Standard Drinks/Week Comments Not Currently 0 (1 standard drink = 0.6 oz pur e alcohol) Feeling Safe Answer Date Recorded Are you in a relationship wi th someone who hurts you emotionally and/or physically? 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 Gender Identity Not on file Sexual Orientation Not on file Last Filed Vital Signs Vital Sign Reading Time Taken Comments Blood Pressure 113/78 04/30/2025 11:31 PM CDT Pulse 88 05/06/2023 3:22 PM CDT Temperature 36.6 C (97.9 F) 04/30/2025 11:31 PM CDT Respiratory Rate 18 04/30/2025 11:31 PM CDT Oxygen Saturation 100% 04/30/2025 11:31 PM CDT Inhaled Oxygen Concentration - - Weight 52.3 kg (115 lb 3.2 oz) 04/30/2025 11:31 PM CDT Height 160 cm (5' 3 ) 04/30/2025 11:31 PM CDT Body Mass Index 20.41 04/30/2025 11:31 PM CDT Plan of Treatment Health Maintenance Due Date Last Done Comments CHLAMYDIA SCREENING (ANNUAL) 11-24 YEARS 2015 COVID-19 Vaccine (3 - 2023-2 5 season) 2024 05/28/2021, 05/07/2021 INFLUENZA VACCINE (#1) 2025 , 07/09/2022, 07/18/2021, Additional history exists COLORECTAL SCREENING 05/06/2030 05/06/2023, 05/06/2023, 05/06/2023 DTAP/TDAP/TD VACCINES (7 - T d or Tdap) 07/25/2034 07/25/2024, 04/10/2019, 12/30/2009, Additional history exists HEPATITIS B VACCINES Completed 07/23/2008, 07/23/2008, 02/04/2005, Additional history exists HPV VACCINES Completed 01/14/2020, 04/10/2019 Procedures Procedure Name Priority Date/Time Associated Diagnosis Comments COLONOSCOPY REPORT 05/06/2023 2: 44 PM CDT from Last 3 Months or Most Recently Relevant to Health Maintenance Results * COLONOSCOPY REPORT (05/06/2023 2:44 PM CDT) Narrative Procedure Note Navi Maciel MD - 05/06/2023 2:44 PM CDT [facility] GI Patient Name: Bushra Saleem Procedure Date: 05/06/2023 Date of : 2005 Admit Type: Outpatient Age: 17 Attending MD: Navi Maciel MD, Procedure: Colonoscopy Indications: Change in bowel habits, elevated fecal calprotectin Providers: Navi Maciel MD Referring MD: Severino Cruz MD Medicines: Propofol per Anesthesia Complications: No immediate complications. Procedure: Pre-Anesthesia Assessment: - Prior to the procedure, a History and Physical was performed, and patient medications and allergies were reviewed. The patient's tolerance of previous anesthesia was also reviewed. The risks and benefits of the procedure and the sedation options and risks were discussed with the patient. All questions were answered, and informed consent was obtained. Prior Anticoagulants: The patient has taken no anticoagulant or antiplatelet agents. ASA Grade Assessment: II - A patient with mild systemic disease. After reviewing the risks and benefits, the patient was deemed in satisfactory condition to undergo the procedure. After I obtained informed consent, the scope was passed under direct vision. Throughout the procedure, the patient's blood pressure, pulse, and oxygen saturations were monitored continuously. The Colonoscope was introduced through the anus and advanced to the terminal ileum, with identification of the appendiceal orifice and IC valve. The colonoscopy was performed without difficulty. The patient tolerated the procedure well. The quality of the bowel preparation was good. The terminal ileum, ileocecal valve, appendiceal orifice, and rectum were photographed. Estimated Blood Loss: Estimated blood loss was minimal. Findings: The terminal ileum appeared normal. Normal mucosa was found in the entire colon. Biopsies were taken with a cold forcepsto rule out colitis. A 3 mm polyp was found in the sigmoid colon. The polyp was sessile. The polyp was removed with a cold snare. Resection and retrieval were complete. The retroflexed view of the distal rectum and anal verge was normal and showed no anal or rectal abnormalities. Impression: - The examined portion of the ileum was normal. - Normal mucosa in the entire examined colon. Biopsied. - One 3 mm polyp in the sigmoid colon, removed with a cold snare. Resected and retrieved. - The distal rectum and anal verge are normal on retroflexion view. Recommendation: - Patient has a contact number available for emergencies. The signs and symptoms of potential delayed complications were discussed with the patient. Return to normal activities tomorrow. Written discharge instructions were provided to the patient. - Resume previous diet. - Continue present medications. - Repeat colonoscopy for surveillance based on pathology results. - Perform a computed tomographic (CT scan) enterography. Navi Maciel MD 05/06/2023 2:44:06 PM Number of Addenda: 0 Note Initiated On: 05/06/2023 2:08 PM Scope Withdrawal Time 0 hours 10 minutes 53 seconds Scope In: 2:20:26 PM Scope Out: 2:39:48 PM [address] [place], [place] Navi Maciel MD GI PROCEDURE ORDERA BLES Final Result from Last 3 Months or Most Recently Relevant to Health Maintenance Insurance [facility] MEDICAID [facility] [facility] [employer]ICAID Advance Directives For more information, please contact: [phone] * Full Code (Latest Code Status on File) Date Activated Date Inactivated Comments 05/06/2023 1:13 PM 05/06/2023 5:39 PM Care Teams Retail Maintenance Technician Relationship Specialty Start Date End Date Severino Cruz MD [address] [phone] PCP - General Family Practice 05/19/23
[2025-06-16 21:05] VITALS: RESP 18; O2SAT 98
[2025-06-16] MEDS: oxyCODONE-APAP 5-325 mg Tablet 2 TAB PO (21:05)
[2025-06-16 21:08] VITALS: BP 117/62; PULSE 89; O2SAT 99
--- NOTE | 2025-06-16 21:10 | ED_ITS ---
HPI - Animal Bite General: Chief Complaint: Animal Bite Stated Complaint: Bit by Dog Time Seen by Provider: 06/16/25 20:35 History of Present Illness: 19-year-old female bitten by her own dog last night. Around 24 hours ago when she was breaking up a fight between dogs. Her dog is up-to-date on all shots. Rabies vaccine less than 1 year ago. She notes that deep puncture wounds to the right thumb bled initially. Then stopped on their own. She scrubbed the wound with soap and water, peroxide, etc. Today its become more painful, and swollen. She has pain with movement of her thumb. No drainage of the wounds. No fever. No vomiting. No toxic symptoms. Related Data Home Medications ?Medication ?Instructions ?Recorded ?Confirmed valacyclovir 500 mg tablet 500 mg PO DAILY PRN Cold So res 10/08/24 06/05/25 Previous Rx's ?Medication ?Instructions ?Recorded amoxicillin 875 mg-potassium 1 tab PO BID 10 days #20 tabs 06/16/25 clavulanate 125 mg tablet Allergies Allergy/AdvReac Type Severity Reaction Status Date / Time benzoin Allergy Severe blistering Verified 06/16/25 20:33 PFS ED PFS: Medical History No pertinent past medical history Denies diabetes, hypertension, seizures, DVT/PE PCP: Dr. Cruz ADD (attention deficit disorder) Diagnosed at the age of 4[address] Cruz and is on medication---does not have a therapist. Asthma Diagnosed in fifth grade and is exercise-induced. She uses her albuterol inhaler once a day Surgical History Hx of foot surgery Right foot surgery x2 screws removed-- 05/02/2022 L foot surgery x2 History of surgical removal of ganglion cyst From left wrist performed when she was in the 5th grade History of bunionectomy of left great toe Performed in 2018 History of tonsillectomy At the age of 8 History of myringotomy As a child Family History Grandmother Diabetes paternal Grandfather Diabetes paternal Family/Other Breast cancer maternal great aunt, age at diagnosis unknown Mother Diabetes Denies family history of Colon cancer Ovarian cancer Heart disease Hyperlipidemia Hypertension Uterine cancer Thyroid disease Stroke Social History Smoking and tobacco/nicotine status: current every day tobacco/nicotine user Female Reproductive History: Date of last menstrual period: 06/16/25 Physical Exam Const: COMMON NORMALS: no acute distress GENERAL APPEARANCE: cooperative; not ill appearing Eye: COMMON NORMALS: Equal, round and reactive pupils present and EOMs intact bilaterally PUPIL: Yes Equal, round and reactive pupils present Resp: COMMON NORMALS: normal respiratory effort and clear to auscultation bilaterally AUSCULTATION: clear to auscultation bilaterally Cardio: COMMON NORMALS: regular rate and regular rhythm RATE: regular rate RHYTHM: regular rhythm Extremity: NARRATIVE EXTREMITY EXAM: Examination of the right hand reveals a puncture wound to the ulnar and radial side of the thumb just distal to the IP. There is generalized soft tissue swelling. There are some pain with thumb flexion and extension, which are both intact. Abduction and adduction are intact as well. There is minimal heat. There is no drainage of the wound. No significant swelling into the hand. Course Vital Signs: Vital signs: Vital Signs Temperature 99.1 F 06/16/25 20:26 Pulse Rate 84 06/16/25 21:15 Respiratory Rate 18 06/16/25 21:05 Blood Pressure 105/68 06/16/25 21:15 Pulse Oximetry 99 06/16/25 21:15 Oxygen Delivery Me thod Room Air 06/16/25 20:26 MDM - Animal Bite Medical Decision Making Animal bite to the right thumb. No evidence at this time of joint involvement, or toxic/septic tenosynovitis. She is given dexamethasone for swelling, 2 doses of pain medication for home 1 for night 1 for morning. Antibiotics here and at home. She will take the antibiotics for the next 10 days given delayed presentation. To return for any worsening symptoms No radiology studies performed this visit Discharge Plan Discharge Patient Disposition: Home Clinical Impression: Dog bite Condition: Stable Prescriptions: Continued amoxicillin-pot clavulanate 875-125 mg tablet 1 tab PO BID 10 Days Qty: 20 0RF No Action valacyclovir 500 mg tablet 500 mg PO DAILY PRN (Reason: Cold Sores) Discharge Orders: Discharge ED (Routine); Ordered 06/16/25 Ordered By: Silvio Bartholomew Referrals: Severino Cruz MD [Primary Care Provider, [facility]] - 1-3 days Patient Instructions: Animal Bite (ED), Opioid Safety, Pain Management, Patient Portal & Heather Instructions Activity Restrictions/Additional Instructions: Keep cleaning with soap and running water. Antibiotics as directed. Ice can help with pain and swelling. See your doctor this coming week for a wound ch jd. Call for an appointment Tuesday. Return for worsening pain despite treatment, worsening swelling despite 3-4 doses of antibiotics, fever despite antibiotics, any other concerning symptoms. Print Language: Vietnamese Coding Level of Care Code ED Access Coordinator for Tyler Sarabia
[2025-06-16 21:15] VITALS: BP 105/68; PULSE 84; O2SAT 99
== END 2025-06-16 21:15 | disposition home or self-care (01) ==
PROVIDERS: Emergency Provider Emergency Medicine; PCP Family Medicine
DX: S61.051A Open bite of right thumb without damage to nail, initial encounter (principal); W54.0XXA Bitten by dog, initial encounter; Z72.0 Tobacco use
CPT/HCPCS: 99283; J8540; J9999

== ENCOUNTER 2025-07-15 17:39 | Emergency (ER) | payer MEDICAID, SELFPAY ==
--- OUTSIDE RECORDS SUMMARY | 2022-11-23 06:00 | XMS_ITS | Continuity of Care Document ---
Author Organization [facility] Address [id number] [address] Phone Care Team Providers Care Ophthalmic Surgical Assistant Name Role Phone Ricky Hernandez DDS Unavailable Unavailabl e Allergies, Adverse Reactions, Alerts Substance Reaction Status Criticality benzoin Active No Information Medications Medication Instructions Dosage Effective Dates (start - stop) Status Comments Ortho Tri-Cyclen (28) 0.18 mg(7)/0.215 mg(7)/0.25 mg(7)-35 mcg tablet take 1 tablet by oral route every day 1.00 tablet - Active chlorhexidine gluconate 0.12 % mouthwash place 15 milliliter by mouth (after meals), swish one minute then spit out as needed - Active Start on 3rd day after surgery, use salt/water first 3 days. clonazepam 1 mg tablet Take 1 (one) tablet 1 (one) hour prior to procedure. - Active ibuprofen 800 mg tablet take 1 tablet by oral route 3 times every day with food as needed 800 MG - Active Anti-inflammat ory caused by Oral Surgery, Do not used more than 3000mg per day. hydrocodone 5 mg-acetaminophen 325 mg tablet take 1 tablet by oral route every 6 hours as needed for pain as needed 1.00 tablet - Active Procedures Procedure Date Removal Of Impacted Tooth Partially Bony Removal Of Impacted Tooth Completely Bony Non-Intravenous Conscious Sedation Removal Of Impacted Tooth Partially Bony Removal Of Impacted Tooth Completely Bony EDR Approval Note Limited Oral Evaluation Problem Focused EDR Approval Note Advance Directives Directive Yes / No Effective Date File Name No Information Encounters Encounter Description Practice Location Reason(s) For Visit Diagnoses Date Provider Providers Copied on Encounter [facility], [id number] [place], [place], [id number], tel:[phone] [facility] No Information Mary García. [address] [place] [address], [address], [place]. tel:[phone] Referring Provider: Ricky Hernandez, [address] [place] [address], [facility]. tel:[phone] [facility], [id number] [place], [place], [id number], tel:[phone] [facility] No Information Mary García. [address] [place] [address], [address], [place]. tel:[phone] Referring Provider: Ricky Hernandez, [address] [place] [address], [facility]. tel:[phone] Family History Family Member Type Diagnosis Age At Onset No Information Payers Payer name Insurance type Covered libertarian ID Authoriza tion(s) D [employer] CI [id number] Social History Type Description Quantity Date Captured Comments Sex Female Smoking Status No Information Sexual Orientation Decline To Specify Gender Identity Female Chief Complaint And Reason For Visit No Information Reason For Referral Reason For Referral No Information History Of Present Illness Encounter Date Complaint History Of Prese nt Illness No Information Functional Status Date Functional Assessmen t No Information Instructions Date Instruction Additional Infor mation Lifestyle education Related to D ental Examination Assessments Type Assessment Date No Information Patient Care Teams Name Effective Dates (start - stop) Status Members No Information
--- OUTSIDE RECORDS SUMMARY | 2025-07-15 17:43 | XMS_ITS | Encounter Summary ---
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
--- OUTSIDE RECORDS SUMMARY | 2025-07-15 17:43 | XMS_ITS | Clinical Summary ---
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 Gender Identity Not on file Sexual [...] Comments CHLAMYDIA SCREENING (ANNUAL) 11-24 YEARS 2015 INFLUENZA VACCINE (#1) 2025 , 07/09/2022, 07/18/2021, Additional history exists COVID-19 Vaccine (3 - 2024-2 6 season) 2025 05/28/2021, 05/07/2021 COLORECTAL SCREENING 05/06/2030 05/06/2023, 05/06/2023, 05/06/2023 DTAP/TDAP/TD [...] Maciel MD - 05/06/2023 2:44 PM CDT [facility] GI Patient Name: Bushra Saleem Procedure Date: [...] PM Scope Out: 2:39:48 PM [address] [place], [place] Navi Maciel MD GI PROCEDURE ORDERA BLES Final Result from Last 3 Months or Most Recently Relevant to Health Maintenance Insurance [facility] MEDICAID [facility] [facility]ICA[employer] Advance Directives For more information, please contact: [phone] * Full Code (Latest Code Status on File) Date Activated Date Inactivated Comments 05/06/2023 1:13 PM 05/06/2023 5:39 PM Care Teams Rn L And D Relationship Specialty Start Date End Date Severino Cruz MD [address] [phone] PCP - General Family Practice 05/19/23
--- OUTSIDE RECORDS SUMMARY | 2025-07-15 17:43 | XMS_ITS | Clinical Summary ---
Author Organization [facility] Address [address] 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
--- OUTSIDE RECORDS SUMMARY | 2025-07-15 17:43 | XMS_ITS | Encounter Summary ---
Author Organization [employer] [facility] Address [address] [place] [address] Care Team Providers Care Geophysical Data Technician Name Role Phone Unavailable Primary Care Provider [...] on file Legal Sex Female 3:23 AM TEST INSPECTION ENGINEER Gender Identity Not on file Sexual Orientation Not on file documented as of this encounter Plan of Treatment Not on file documented as of this encounter Procedures Procedure Name Priority Date/Time Associated Diagnosis Comments BILIRUBIN, TOTAL AND DIRECT Routine 2004 11:08 AM TEST INSPECTION ENGINEER POC GLUCOSE Routine 2004 10:59 AM TEST INSPECTION ENGINEER METABOLIC SCREEN Routine 2004 7:02 AM TEST INSPECTION ENGINEER POC GLUCOSE Routine 2004 5:05 AM TEST INSPECTION ENGINEER DIFFERENTIAL, MANUAL Routine 2004 5:09 AM TEST INSPECTION ENGINEER CBC WITH DIFFERENTIAL Routine 2004 5:09 AM TEST INSPECTION ENGINEER POC GLUCOSE Routine 2004 4:59 AM TEST INSPECTION ENGINEER DIFFERENTIAL, MANUAL Routine 2004 5:10 AM TEST INSPECTION ENGINEER BILIRUBIN, TOTAL AND DIRECT Routine 2004 5:10 AM TEST INSPECTION ENGINEER CBC WITH DIFFERENTIAL Routine 2004 5:10 AM TEST INSPECTION ENGINEER BASIC METABOLIC PANEL Routine 2004 5:10 AM TEST INSPECTION ENGINEER POC GLUCOSE Routine 2004 5:05 AM TEST INSPECTION ENGINEER BASIC CHEM/BILI PROFILE Routine 2004 2:59 AM TEST INSPECTION ENGINEER DIFFERENTIAL, MANUAL Routine 2004 2:59 AM TEST INSPECTION ENGINEER BILIRUBIN, TOTAL AND DIRECT Routine 2004 2:59 AM TEST INSPECTION ENGINEER CBC WITH DIFFERENTIAL Routine 2004 2:59 AM TEST INSPECTION ENGINEER POC GLUCOSE Routine 2004 2:09 AM TEST INSPECTION ENGINEER BILIRUBIN, TOTAL AND DIRECT Routine 2004 5:56 PM TEST INSPECTION ENGINEER POC GLUCOSE Routine 2004 5:30 PM TEST INSPECTION ENGINEER POC GLUCOSE Routine 2004 11:13 AM TEST INSPECTION ENGINEER BASIC CHEM/BILI PROFILE Routine 2004 5:20 AM TEST INSPECTION ENGINEER BILIRUBIN, TOTAL AND DIRECT Routine 2004 5:20 AM TEST INSPECTION ENGINEER POC BLOOD GAS AND GLUCOSE Routine 2004 5:13 AM TEST INSPECTION ENGINEER GENTAMICIN LEVEL TROUGH Routine 2004 11:50 PM TEST INSPECTION ENGINEER POC GLUCOSE Routine 2004 11:27 PM TEST INSPECTION ENGINEER BILIRUBIN, TOTAL AND DIRECT Routine 2004 5:58 PM TEST INSPECTION ENGINEER POC GLUCOSE Routine 2004 5:30 PM TEST INSPECTION ENGINEER POC GLUCOSE Routine 2004 11:29 AM TEST INSPECTION ENGINEER DIFFERENTIAL, MANUAL Routine 2004 5:27 AM TEST INSPECTION ENGINEER CBC WITH DIFFERENTIAL Routine 2004 5:27 AM TEST INSPECTION ENGINEER BASIC CHEM/BILI PROFILE Routine 2004 5:24 AM TEST INSPECTION ENGINEER BILIRUBIN, TOTAL AND DIRECT Routine 2004 5:24 AM TEST INSPECTION ENGINEER POC BLOOD GAS AND GLUCOSE Routine 2004 5:18 AM TEST INSPECTION ENGINEER POC BLOOD GAS AND GLUCOSE Routine 2004 6:19 PM TEST INSPECTION ENGINEER BILIRUBIN, TOTAL AND DIRECT Routine 2004 6:18 PM TEST INSPECTION ENGINEER METABOLIC SCREEN Routine 2004 5:21 AM TEST INSPECTION ENGINEER BASIC CHEM/BILI PROFILE Routine 2004 5:19 AM TEST INSPECTION ENGINEER DIFFERENTIAL, MANUAL Routine 2004 5:19 AM TEST INSPECTION ENGINEER BILIRUBIN, TOTAL AND DIRECT Routine 2004 5:19 AM TEST INSPECTION ENGINEER CBC WITH DIFFERENTIAL Routine 2004 5:19 AM TEST INSPECTION ENGINEER POC BLOOD GAS AND GLUCOSE Routine 2004 5:10 AM TEST INSPECTION ENGINEER POC BLOOD GAS AND GLUCOSE Routine 2004 6:05 PM TEST INSPECTION ENGINEER BILIRUBIN, TOTAL AND DIRECT Routine 2004 5:38 PM TEST INSPECTION ENGINEER POC BLOOD GAS AND GLUCOSE Routine 2004 1:54 PM TEST INSPECTION ENGINEER BASIC CHEM/BILI PROFILE Routine 2004 5:13 AM TEST INSPECTION ENGINEER DIFFERENTIAL, MANUAL Routine 2004 5:13 AM TEST INSPECTION ENGINEER BILIRUBIN, TOTAL AND DIRECT Routine 2004 5:13 AM TEST INSPECTION ENGINEER CBC WITH DIFFERENTIAL Routine 2004 5:13 AM TEST INSPECTION ENGINEER POC BLOOD GAS AND GLUCOSE Routine 2004 5:08 AM TEST INSPECTION ENGINEER POC BLOOD GAS AND GLUCOSE Routine 2004 11:09 PM TEST INSPECTION ENGINEER BILIRUBIN, TOTAL AND DIRECT Routine 2004 6:18 PM TEST INSPECTION ENGINEER POC BLOOD GAS AND GLUCOSE Routine 2004 6:14 PM TEST INSPECTION ENGINEER POC GLUCOSE Routine 2004 10:04 AM TEST INSPECTION ENGINEER BASIC CHEM/BILI PROFILE Routine 2004 5:17 AM TEST INSPECTION ENGINEER DIFFERENTIAL, MANUAL Routine 2004 5:17 AM TEST INSPECTION ENGINEER BILIRUBIN, TOTAL AND DIRECT Routine 2004 5:17 AM TEST INSPECTION ENGINEER CBC WITH DIFFERENTIAL Routine 2004 5:17 AM TEST INSPECTION ENGINEER POC BLOOD GAS AND GLUCOSE Routine 2004 5:12 AM TEST INSPECTION ENGINEER BILIRUBIN, TOTAL AND DIRECT Routine 2004 11:01 PM TEST INSPECTION ENGINEER POC BLOOD GAS AND GLUCOSE Routine 2004 8:45 PM TEST INSPECTION ENGINEER documented in this encounter Results * BILIRUBIN, TOTAL AND DIRECT (2004 11:08 AM TEST INSPECTION ENGINEER) BILIRUBIN TOTAL 4.4 0.5 - 10.5 mg/day INTERFACE SYSTEM Comment:Normals apply to bab ies less than two weeks of age. BILIRUBIN INDIRECT 4.4 0.6 - 10.5 mg/dL INTERFACE SYSTEM BILIRUBIN DIRECT 0.0 0.0 - 0.6 mg/dL INTERFACE SYSTEM 2004 11:0 8 AM TEST INSPECTION ENGINEER Abdiaziz Lozano Jr., MD CHEMISTRY ORDERABLES Fi nal Result Performing Organization Address [facility] de Phone Number INTERFACE SYSTEM Refer to clinic/hospital department * (ABNORMAL) POC GLUCOSE (2004 10:59 AM TEST INSPECTION ENGINEER) GLUCOSE POC 104(H) 60 - 100 mg/dL INTERFACE SYSTEM 2004 10:5 9 AM TEST INSPECTION ENGINEER Abdiaziz Lozano Jr., MD POINT OF CARE TESTING F inal Result Performing Organization Address [facility] Phone Number INTERFACE SYSTEM Refer to clinic/hospital department * METABOLIC SCREEN (2004 7:02 AM TEST INSPECTION ENGINEER) PKU Sent to Reference Lab INTERFACE SYSTEM 2004 7:02 AM TEST INSPECTION ENGINEER Abdiaziz Lozano Jr., MD CHEMISTRY ORDERABLES Fi nal Result Performing Organization Address [facility] Phone Number INTERFACE SYSTEM Refer to clinic/hospital department * POC GLUCOSE (2004 5:05 AM TEST INSPECTION ENGINEER) GLUCOSE POC 68 60 - 100 mg/dL INTERFACE SYSTEM 2004 5:05 AM TEST INSPECTION ENGINEER Abdiaziz Lozano Jr., MD POINT OF CARE TESTING F inal Result Performing Organization Address [facility] de Phone Number INTERFACE SYSTEM Refer to clinic/hospital department * (ABNORMAL) DIFFERENTIAL, MANUAL (2004 5:09 AM TEST INSPECTION ENGINEER) NEUTROPHILS, SEG 23 15 - 35 percent(in [...] Seen INTERFA CE SYSTEM 2004 5:09 AM TEST INSPECTION ENGINEER Abdiaziz Lozano Jr., MD HEMATOLOGY ORDERABLES C OM Final Result Performing Organization Address [facility] Co de Phone Number INTERFACE SYSTEM Refer to clinic/hospital department * (ABNORMAL) CBC WITH DIFFERENTIAL (2004 5:09 AM TEST INSPECTION ENGINEER) WBC 8.2(L) 9.4 - 34.0 K/ul INTERFACE [...] 1 <=1 INTERFACE SYSTEM 2004 5:09 AM TEST INSPECTION ENGINEER Abdiaziz Lozano Jr., MD HEMATOLOGY ORDERABLES F inal Result INTERFACE SYSTEM Refer to clinic/hospital department * POC GLUCOSE (2004 4:59 AM TEST INSPECTION ENGINEER) GLUCOSE POC 72 60 - 100 mg/dL INTERFACE SYSTEM 2004 4:59 AM TEST INSPECTION ENGINEER Abdiaziz Lozano Jr., MD POINT OF CARE TESTING F inal Result Performing Organization Address [facility] Phone Number INTERFACE SYSTEM Refer to clinic/hospital department * BILIRUBIN, TOTAL AND DIRECT (2004 5:10 AM TEST INSPECTION ENGINEER) BILIRUBIN TOTAL 8.4 0.5 - 10.5 mg/day INTERFACE SYSTEM Comment:Normals apply to bab ies less than two weeks of age. BILIRUBIN INDIRECT 8.4 0.6 - 10.5 mg/dL INTERFACE SYSTEM BILIRUBIN DIRECT 0.0 0.0 - 0.6 mg/dL INTERFACE SYSTEM 2004 5:10 AM TEST INSPECTION ENGINEER Abdiaziz Lozano Jr., MD CHEMISTRY ORDERABLES Fi nal Result Performing Organization Address [facility] Phone Number INTERFACE SYSTEM Refer to clinic/hospital department * (ABNORMAL) DIFFERENTIAL, MANUAL (2004 5:10 AM TEST INSPECTION ENGINEER) NEUTROPHILS, SEG 24 15 - 35 percent(in [...] Seen INTERF GE SYSTEM 2004 5:10 AM TEST INSPECTION ENGINEER Abdiaziz Lozano Jr., MD HEMATOLOGY ORDERABLES C OM Final Result Performing Organization Address [facility] Phone Number INTERFACE SYSTEM Refer to clinic/hospital department * (ABNORMAL) CBC WITH DIFFERENTIAL (2004 5:10 AM TEST INSPECTION ENGINEER) WBC 13.0 9.4 - 34.0 K/ul INTERFACE [...] 12.8 Fl INTERFACE SYSTEM 2004 5:10 AM TEST INSPECTION ENGINEER Abdiaziz Lozano Jr., MD HEMATOLOGY ORDERABLES F inal Result Performing Organization Address [facility] Phone Number INTERFACE SYSTEM Refer to clinic/hospital department * (ABNORMAL) BASIC METABOLIC PANEL (2004 5:10 AM TEST INSPECTION ENGINEER) GLUCOSE 63 60 - 100 mg/dL INTERFACE [...] 10.5 mg/dL INTERFACE SYSTEM 2004 5:10 AM TEST INSPECTION ENGINEER Abdiaziz Lozano Jr., MD CHEMISTRY ORDERABLES Fi nal Result Performing Organization Address [facility] Phone Number INTERFACE SYSTEM Refer to clinic/hospital department * POC GLUCOSE (2004 5:05 AM TEST INSPECTION ENGINEER) GLUCOSE POC 69 60 - 100 mg/dL INTERFACE SYSTEM 2004 5:05 AM TEST INSPECTION ENGINEER Abdiaziz Lozano Jr., MD POINT OF CARE TESTING F inal Result Performing Organization Address [facility] de Phone Number INTERFACE SYSTEM Refer to clinic/hospital department * BILIRUBIN, TOTAL AND DIRECT (2004 2:59 AM TEST INSPECTION ENGINEER) BILIRUBIN TOTAL 7.8 0.5 - 10.5 mg/day INTERFACE SYSTEM Comment:Normals apply to bab ies less than two weeks of age. BILIRUBIN INDIRECT 7.8 0.6 - 10.5 mg/dL INTERFACE SYSTEM BILIRUBIN DIRECT 0.0 0.0 - 0.6 mg/dL INTERFACE SYSTEM 2004 2:59 AM TEST INSPECTION ENGINEER Abdiaziz Lozano Jr., MD CHEMISTRY ORDERABLES Fi nal Result Performing Organization Address [facility] Phone Number INTERFACE SYSTEM Refer to clinic/hospital department * (ABNORMAL) DIFFERENTIAL, MANUAL (2004 2:59 AM TEST INSPECTION ENGINEER) NEUTROPHILS, SEG 31 15 - 35 percent(in [...] Seen INTERFA CE SYSTEM 2004 2:59 AM TEST INSPECTION ENGINEER Abdiaziz Lozano Jr., MD HEMATOLOGY ORDERABLES C OM Final Result Performing Organization Address [facility] Co de Phone Number INTERFACE SYSTEM Refer to clinic/hospital department * PANEL 1 (2004 2:59 AM TEST INSPECTION ENGINEER) TRIGLYCERIDE 75 0 - 158 mg/dL INTERFACE [...] 295 mOsm/Kg INTERFACE SYSTEM 2004 2:59 AM TEST INSPECTION ENGINEER Abdiaziz Lozano Jr., MD CHEMISTRY ORDERABLES Fi nal Result Performing Organization Address [facility] Phone Number INTERFACE SYSTEM Refer to clinic/hospital department * (ABNORMAL) CBC WITH DIFFERENTIAL (2004 2:59 AM TEST INSPECTION ENGINEER) WBC 11.4 9.4 - 34.0 K/ul INTERFACE [...] 12.8 Fl INTERFACE SYSTEM 2004 2:59 AM TEST INSPECTION ENGINEER Abdiaziz Lozano Jr., MD HEMATOLOGY ORDERABLES F inal Result Performing Organization Address [facility] Phone Number INTERFACE SYSTEM Refer to clinic/hospital department * POC GLUCOSE (2004 2:09 AM TEST INSPECTION ENGINEER) GLUCOSE POC 93 60 - 100 mg/dL INTERFACE SYSTEM 2004 2:09 AM TEST INSPECTION ENGINEER Abdiaziz Lozano Jr., MD POINT OF CARE TESTING F inal Result Performing Organization Address [facility] Phone Number INTERFACE SYSTEM Refer to clinic/hospital department * BILIRUBIN, TOTAL AND DIRECT (2004 5:56 PM TEST INSPECTION ENGINEER) BILIRUBIN TOTAL 7.1 0.5 - 10.5 mg/day INTERFACE SYSTEM Comment:Normals apply to bab ies less than two weeks of age. BILIRUBIN INDIRECT 7.1 0.6 - 10.5 mg/dL INTERFACE SYSTEM BILIRUBIN DIRECT 0.0 0.0 - 0.6 mg/dL INTERFACE SYSTEM 2004 5:56 PM TEST INSPECTION ENGINEER Abdiaziz Lozano Jr., MD CHEMISTRY ORDERABLES Fi nal Result Performing Organization Address [facility] Phone Number INTERFACE SYSTEM Refer to clinic/hospital department * (ABNORMAL) POC GLUCOSE (2004 5:30 PM TEST INSPECTION ENGINEER) GLUCOSE POC 114(H) 60 - 100 mg/dL INTERFACE SYSTEM 2004 5:30 PM TEST INSPECTION ENGINEER Abdiaziz Lozano Jr., MD POINT OF CARE TESTING F inal Result Performing Organization Address [facility] Phone Number INTERFACE SYSTEM Refer to clinic/hospital department * POC GLUCOSE (2004 11:13 AM TEST INSPECTION ENGINEER) GLUCOSE POC 90 60 - 100 mg/dL INTERFACE SYSTEM 2004 11:1 3 AM TEST INSPECTION ENGINEER Abdiaziz Lozano Jr., MD POINT OF CARE TESTING F inal Result Performing Organization Address [facility] Phone Number INTERFACE SYSTEM Refer to clinic/hospital department * BILIRUBIN, TOTAL AND DIRECT (2004 5:20 AM TEST INSPECTION ENGINEER) BILIRUBIN TOTAL 8.2 0.5 - 10.5 mg/day INTERFACE SYSTEM Comment:Normals apply to bab ies less than two weeks of age. BILIRUBIN INDIRECT 8.2 0.6 - 10.5 mg/dL INTERFACE SYSTEM BILIRUBIN DIRECT 0.0 0.0 - 0.6 mg/dL INTERFACE SYSTEM 2004 5:20 AM TEST INSPECTION ENGINEER Abdiaziz Lozano Jr., MD CHEMISTRY ORDERABLES Fi nal Result Performing Organization Address [facility] de Phone Number INTERFACE SYSTEM Refer to clinic/hospital department * PANEL 1 (2004 5:20 AM TEST INSPECTION ENGINEER) TRIGLYCERIDE 83 0 - 158 mg/dL INTERFACE [...] 295 mOsm/Kg INTERFACE SYSTEM 2004 5:20 AM TEST INSPECTION ENGINEER Abdiaziz Lozano Jr., MD CHEMISTRY ORDERABLES Fi nal Result Performing Organization Address [facility] Phone Number INTERFACE SYSTEM Refer to clinic/hospital department * (ABNORMAL) POC ISTAT 8 (2004 5:13 AM TEST INSPECTION ENGINEER) SPECIMEN TYPE Capillary INTERF GE SYSTEM Comment:Sample [...] 100 mg/dL INTERFACE SYSTEM 2004 5:13 AM TEST INSPECTION ENGINEER Abdiaziz Lozano Jr., MD ABG ORDERABLES Final R esult Performing Organization Address [facility] de Phone Number INTERFACE SYSTEM Refer to clinic/hospital department * GENTAMICIN LEVEL TROUGH (2004 11:50 PM TEST INSPECTION ENGINEER) GENTAMICIN, TROUGH <0.5 0.0 - 2.0 mcg/mL INTERFACE SYSTEM Comment:Specimen moderately hemolyzed 2004 11:5 0 PM TEST INSPECTION ENGINEER Abdiaziz Lozano Jr., MD CHEMISTRY ORDERABLES Fi nal Result Performing Organization Address [facility] de Phone Number INTERFACE SYSTEM Refer to clinic/hospital department * (ABNORMAL) POC GLUCOSE (2004 11:27 PM TEST INSPECTION ENGINEER) GLUCOSE POC 102(H) 50 - 80 mg/dL INTERFACE SYSTEM 2004 11:2 7 PM TEST INSPECTION ENGINEER Abdiaziz Lozano Jr., MD POINT OF CARE TESTING F inal Result Performing Organization Address [facility] de Phone Number INTERFACE SYSTEM Refer to clinic/hospital department * BILIRUBIN, TOTAL AND DIRECT (2004 5:58 PM TEST INSPECTION ENGINEER) BILIRUBIN TOTAL 9.5 0.5 - 10.5 mg/day INTERFACE SYSTEM Comment:Normals apply to bab ies less than two weeks of age. BILIRUBIN INDIRECT 9.5 0.6 - 10.5 mg/dL INTERFACE SYSTEM BILIRUBIN DIRECT 0.0 0.0 - 0.6 mg/dL INTERFACE SYSTEM 2004 5:58 PM TEST INSPECTION ENGINEER Abdiaziz Lozano Jr., MD CHEMISTRY ORDERABLES Fi nal Result Performing Organization Address [facility] de Phone Number INTERFACE SYSTEM Refer to clinic/hospital department * POC GLUCOSE (2004 5:30 PM TEST INSPECTION ENGINEER) GLUCOSE POC 79 50 - 80 mg/dL INTERFACE SYSTEM 2004 5:30 PM TEST INSPECTION ENGINEER Abdiaziz Lozano Jr., MD POINT OF CARE TESTING F inal Result Performing Organization Address [facility] Phone Number INTERFACE SYSTEM Refer to clinic/hospital department * POC GLUCOSE (2004 11:29 AM TEST INSPECTION ENGINEER) GLUCOSE POC 74 50 - 80 mg/dL INTERFACE SYSTEM 2004 11:2 9 AM TEST INSPECTION ENGINEER Abdiaziz Lozano Jr., MD POINT OF CARE TESTING F inal Result Performing Organization Address [facility] Phone Number INTERFACE SYSTEM Refer to clinic/hospital department * (ABNORMAL) DIFFERENTIAL, MANUAL (2004 5:27 AM TEST INSPECTION ENGINEER) NEUTROPHILS, SEG 43(H) 15 - 35 percent(in [...] Seen INTERF GE SYSTEM 2004 5:27 AM TEST INSPECTION ENGINEER Abdiaziz Lozano Jr., MD HEMATOLOGY ORDERABLES C OM Final Result Performing Organization Address [facility] Phone Number INTERFACE SYSTEM Refer to clinic/hospital department * (ABNORMAL) CBC WITH DIFFERENTIAL (2004 5:27 AM TEST INSPECTION ENGINEER) WBC 7.8(L) 9.4 - 34.0 K/ul INTERFACE [...] 12.8 Fl INTERFACE SYSTEM 2004 5:27 AM TEST INSPECTION ENGINEER Abdiaziz Lozano Jr., MD HEMATOLOGY ORDERABLES F inal Result Performing Organization Address [facility] Phone Number INTERFACE SYSTEM Refer to clinic/hospital department * (ABNORMAL) BILIRUBIN, TOTAL AND DIRECT (2004 5:24 AM TEST INSPECTION ENGINEER) BILIRUBIN TOTAL 10.6(H) 0.5 - 10.5 mg/day INTERFACE SYSTEM Comment:Normals apply to bab ies less than two weeks of age. BILIRUBIN INDIRECT 10.3 0.6 - 10.5 mg/dL INTERFACE SYSTEM BILIRUBIN DIRECT 0.3 0.0 - 0.6 mg/dL INTERFACE SYSTEM 2004 5:24 AM TEST INSPECTION ENGINEER Abdiaziz Lozano Jr., MD CHEMISTRY ORDERABLES Fi nal Result Performing Organization Address [facility]/ZIP Co de Phone Number INTERFACE SYSTEM Refer to clinic/hospital department * (ABNORMAL) PANEL 1 (2004 5:24 AM TEST INSPECTION ENGINEER) TRIGLYCERIDE 53 0 - 158 mg/dL INTERFACE [...] 295 mOsm/Kg INTERFACE SYSTEM 2004 5:24 AM TEST INSPECTION ENGINEER Abdiaziz Lozano Jr., MD CHEMISTRY ORDERABLES nal Result Performing Organization Address [facility] de Phone Number INTERFACE SYSTEM Refer to clinic/hospital department * (ABNORMAL) POC ISTAT 8 (2004 5:18 AM TEST INSPECTION ENGINEER) SPECIMEN TYPE Capillary INTERF GE SYSTEM FIO2 [...] 80 mg/dL INTERFACE SYSTEM 2004 5:18 AM TEST INSPECTION ENGINEER Abdiaziz Loazno Jr., MD ABG ORDERABLES Final R esult INTERFACE SYSTEM Refer to clinic/hospital department * (ABNORMAL) POC ISTAT 8 (2004 6:19 PM TEST INSPECTION ENGINEER) SPECIMEN TYPE Capillary INTERF GE SYSTEM FIO2 [...] 80 mg/dL INTERFACE SYSTEM 2004 6:19 PM TEST INSPECTION ENGINEER Abdiaziz Lozano Jr., MD ABG ORDERABLES Final R esult Performing Organization Address [facility] Phone Number INTERFACE SYSTEM Refer to clinic/hospital department * (ABNORMAL) BILIRUBIN, TOTAL AND DIRECT (2004 6:18 PM TEST INSPECTION ENGINEER) BILIRUBIN TOTAL 10.9(H) 0.5 - 10.5 mg/day INTERFACE SYSTEM Comment: Normals apply to babies less than two weeks of age. Specimen slightly hemolyzed BILIRUBIN INDIRECT 10.5 0.6 - 10.5 mg/dL INTERFACE SYSTEM BILIRUBIN DIRECT 0.4 0.0 - 0.6 mg/dL INTERFACE SYSTEM 2004 6:18 PM TEST INSPECTION ENGINEER Abdiaziz Lozano Jr., MD CHEMISTRY ORDERABLES Fi nal Result Performing Organization Address [facility] Phone Number INTERFACE SYSTEM Refer to clinic/hospital department * METABOLIC SCREEN (2004 5:21 AM TEST INSPECTION ENGINEER) PKU Sent to Reference Lab INTERFACE SYSTEM 2004 5:21 AM TEST INSPECTION ENGINEER Abdiaziz Lozano Jr., MD CHEMISTRY ORDERABLES Fi nal Result Performing Organization Address [facility] Phone Number INTERFACE SYSTEM Refer to clinic/hospital department * (ABNORMAL) BILIRUBIN, TOTAL AND DIRECT (2004 5:19 AM TEST INSPECTION ENGINEER) BILIRUBIN TOTAL 11.7(H) 0.5 - 10.5 mg/day INTERFACE SYSTEM Comment:Normals apply to bab ies less than two weeks of age. BILIRUBIN INDIRECT 11.6(H) 0.6 - 10.5 mg/dL INTERFACE SYSTEM BILIRUBIN DIRECT 0.2 0.0 - 0.6 mg/dL INTERFACE SYSTEM 2004 5:19 AM TEST INSPECTION ENGINEER Abdiaziz Lozano Jr., MD CHEMISTRY ORDERABLES Fi nal Result Performing Organization Address [facility] Phone Number INTERFACE SYSTEM Refer to clinic/hospital department * (ABNORMAL) DIFFERENTIAL, MANUAL (2004 5:19 AM TEST INSPECTION ENGINEER) NEUTROPHILS, SEG 32 15 - 35 percent(in [...] Seen INTERF GE SYSTEM 2004 5:19 AM TEST INSPECTION ENGINEER Abdiaziz Lozano Jr., MD HEMATOLOGY ORDERABLES C OM Final Result Performing Organization Address [facility] Phone Number INTERFACE SYSTEM Refer to clinic/hospital department * (ABNORMAL) CBC WITH DIFFERENTIAL (2004 5:19 AM TEST INSPECTION ENGINEER) Pathologist [facility] [place] WBC 5.9(L) 9.4 - 34.0 K/ul INTERFACE [...] 12.8 Fl INTERFACE SYSTEM 2004 5:19 AM TEST INSPECTION ENGINEER Abdiaziz Lozano Jr., MD HEMATOLOGY ORDERABLES F inal Result Performing Organization Address [facility] Co de Phone Number INTERFACE SYSTEM Refer to clinic/hospital department * (ABNORMAL) PANEL 1 (2004 5:19 AM TEST INSPECTION ENGINEER) TRIGLYCERIDE 53 0 - 158 mg/dL INTERFACE [...] 2.3 mg/dL INTERFACE SYSTEM 2004 5:19 AM TEST INSPECTION ENGINEER Abdiaziz Lozano Jr., MD CHEMISTRY ORDERABLES Fi nal Result INTERFACE SYSTEM Refer to clinic/hospital department * (ABNORMAL) POC ISTAT 8 (2004 5:10 AM TEST INSPECTION ENGINEER) SPECIMEN TYPE Capillary INTERF GE SYSTEM Comment: [...] 80 mg/dL INTERFACE SYSTEM 2004 5:10 AM TEST INSPECTION ENGINEER MD LISSA Gibson Jr. ORDERABLES Final R esult Performing Organization Address [facility] de Phone Number INTERFACE SYSTEM Refer to clinic/hospital department * (ABNORMAL) POC ISTAT 8 (2004 6:05 PM TEST INSPECTION ENGINEER) SPECIMEN TYPE Capillary INTERF GE SYSTEM Comment: [...] 80 mg/dL INTERFACE SYSTEM 2004 6:05 PM TEST INSPECTION ENGINEER MD LISSA Gibson Jr. ORDERABLES Final R esult Performing Organization Address [facility] Co de Phone Number INTERFACE SYSTEM Refer to clinic/hospital department * (ABNORMAL) BILIRUBIN, TOTAL AND DIRECT (2004 5:38 PM TEST INSPECTION ENGINEER) BILIRUBIN TOTAL 11.0(H) 0.5 - 10.5 mg/day INTERFACE SYSTEM Comment:Normals apply to bab ies less than two weeks of age. BILIRUBIN INDIRECT 11.0(H) 0.6 - 10.5 mg/dL INTERFACE SYSTEM BILIRUBIN DIRECT 0.0 0.0 - 0.6 mg/dL INTERFACE SYSTEM 2004 5:38 PM TEST INSPECTION ENGINEER Abdiaziz Lozano Jr., MD CHEMISTRY ORDERABLES Fi nal Result Performing Organization Address [facility] Co de Phone Number INTERFACE SYSTEM Refer to clinic/hospital department * (ABNORMAL) POC ISTAT 8 (2004 1:54 PM TEST INSPECTION ENGINEER) Pathologist [facility] [place] SPECIMEN TYPE Capillary INTERF GE SYSTEM Comment: [...] 80 mg/dL INTERFACE SYSTEM 2004 1:54 PM TEST INSPECTION ENGINEER Abdiaziz Lozano Jr., MD ABG ORDERABLES Final R esult Performing Organization Address [facility] [facility] Phone Number INTERFACE SYSTEM Refer to clinic/hospital department * (ABNORMAL) BILIRUBIN, TOTAL AND DIRECT (2004 5:13 AM TEST INSPECTION ENGINEER) BILIRUBIN TOTAL 12.8(H) 0.5 - 10.5 mg/day INTERFACE SYSTEM Comment:Normals apply to bab ies less than two weeks of age. BILIRUBIN INDIRECT 12.5(H) 0.6 - 10.5 mg/dL INTERFACE SYSTEM BILIRUBIN DIRECT 0.3 0.0 - 0.6 mg/dL INTERFACE SYSTEM 2004 5:13 AM TEST INSPECTION ENGINEER Abdiaziz Lozano Jr., MD CHEMISTRY ORDERABLES Fi nal Result Performing Organization Address [facility] Phone Number INTERFACE SYSTEM Refer to clinic/hospital department * (ABNORMAL) DIFFERENTIAL, MANUAL (2004 5:13 AM TEST INSPECTION ENGINEER) NEUTROPHILS, SEG 57(H) 15 - 35 percent(in [...] Seen INTERF GE SYSTEM 2004 5:13 AM TEST INSPECTION ENGINEER us Abdiaziz Lozano Jr., MD HEMATOLOGY ORDERABLES C OM Final Result Performing Organization Address [facility] Phone Number INTERFACE SYSTEM Refer to clinic/hospital department * (ABNORMAL) PANEL 1 (2004 5:13 AM TEST INSPECTION ENGINEER) TRIGLYCERIDE 131 0 - 158 mg/dL INTERFACE [...] 295 mOsm/Kg INTERFACE SYSTEM 2004 5:13 AM TEST INSPECTION ENGINEER Abdiaziz Lozano Jr., MD CHEMISTRY ORDERABLES Fi nal Result INTERFACE SYSTEM Refer to clinic/hospital department * (ABNORMAL) CBC WITH DIFFERENTIAL (2004 5:13 AM TEST INSPECTION ENGINEER) WBC 8.5(L) 9.4 - 34.0 K/ul INTERFACE [...] 0.2 K/ul INTERFACE SYSTEM 2004 5:13 AM TEST INSPECTION ENGINEER Abdiaziz Lozano Jr., MD HEMATOLOGY ORDERABLES F inal Result Performing Organization Address [facility]/ZIP Co de Phone Number INTERFACE SYSTEM Refer to clinic/hospital department * (ABNORMAL) POC ISTAT 8 (2004 5:08 AM TEST INSPECTION ENGINEER) SPECIMEN TYPE Capillary INTERF GE SYSTEM Comment: [...] 80 mg/dL INTERFACE SYSTEM 2004 5:08 AM TEST INSPECTION ENGINEER Abdiaziz Lozano Jr., MD ABG ORDERABLES Final R esult INTERFACE SYSTEM Refer to clinic/hospital department * (ABNORMAL) POC ISTAT 8 (2004 11:09 PM TEST INSPECTION ENGINEER) SPECIMEN TYPE Capillary INTERF GE SYSTEM Comment: [...] mg/dL INTERFACE SYSTEM 2004 11:0 9 PM TEST INSPECTION ENGINEER Abdiaziz Lozano Jr., MD ABG ORDERABLES Final R esult INTERFACE SYSTEM Refer to clinic/hospital department * (ABNORMAL) BILIRUBIN, TOTAL AND DIRECT (2004 6:18 PM TEST INSPECTION ENGINEER) BILIRUBIN TOTAL 13.3(H) 0.5 - 10.5 mg/day INTERFACE SYSTEM Comment:Normals apply to bab ies less than two weeks of age. BILIRUBIN INDIRECT 13.3(H) 0.6 - 10.5 mg/dL INTERFACE SYSTEM BILIRUBIN DIRECT 0.0 0.0 - 0.6 mg/dL INTERFACE SYSTEM 2004 6:18 PM TEST INSPECTION ENGINEER Abdiaziz Lozano Jr., MD CHEMISTRY ORDERABLES Fi nal Result Performing Organization Address [facility] de Phone Number INTERFACE SYSTEM Refer to clinic/hospital department * (ABNORMAL) POC ISTAT 8 (2004 6:14 PM TEST INSPECTION ENGINEER) SPECIMEN TYPE Capillary INTERF GE SYSTEM Comment: [...] 80 mg/dL INTERFACE SYSTEM 2004 6:14 PM TEST INSPECTION ENGINEER Abdiaziz Lozano Jr., MD ABG ORDERABLES Final R esult Performing Organization Address [facility] Co de Phone Number INTERFACE SYSTEM Refer to clinic/hospital department * POC GLUCOSE (2004 10:04 AM TEST INSPECTION ENGINEER) GLUCOSE POC 63 50 - 80 mg/dL INTERFACE SYSTEM 2004 10:0 4 AM TEST INSPECTION ENGINEER Abdiaziz Lozano Jr., MD POINT OF CARE TESTING F inal Result Performing Organization Address [facility] Co de Phone Number INTERFACE SYSTEM Refer to clinic/hospital department * (ABNORMAL) BILIRUBIN, TOTAL AND DIRECT (2004 5:17 AM TEST INSPECTION ENGINEER) BILIRUBIN TOTAL 14.7(H) 0.5 - 10.5 mg/day INTERFACE SYSTEM Comment:Normals apply to bab ies less than two weeks of age. BILIRUBIN INDIRECT 14.5(H) 0.6 - 10.5 mg/dL INTERFACE SYSTEM BILIRUBIN DIRECT 0.2 0.0 - 0.6 mg/dL INTERFACE SYSTEM 2004 5:17 AM TEST INSPECTION ENGINEER Abdiaziz Lozano Jr., MD CHEMISTRY ORDERABLES Fi nal Result Performing Organization Address [facility] Phone Number INTERFACE SYSTEM Refer to clinic/hospital department * (ABNORMAL) PANEL 1 (2004 5:17 AM TEST INSPECTION ENGINEER) TRIGLYCERIDE 97 0 - 158 mg/dL INTERFACE [...] 295 mOsm/Kg INTERFACE SYSTEM 2004 5:17 AM TEST INSPECTION ENGINEER Abdiaziz Lozano Jr., MD CHEMISTRY ORDERABLES Fi nal Result Performing Organization Address [facility] Phone Number INTERFACE SYSTEM Refer to clinic/hospital department * (ABNORMAL) DIFFERENTIAL, MANUAL (2004 5:17 AM TEST INSPECTION ENGINEER) NEUTROPHILS, SEG 71(H) 15 - 35 percent(in active) INTERFACE SYSTEM LYMPHOCYTES 24(L) 26 - 36 % INTERFAC E SYSTEM MONOCYTE 5 5 - 6 % INTERFACE SYSTEM PLATELET EST. Normal Normal INTERF GE SYSTEM RBC MORPHOLOGY Abnormal(A ) Normal INTERFACE SYSTEM POLYCHROMASIA 1+(A) None Seen INTERF GE SYSTEM 2004 5:17 AM TEST INSPECTION ENGINEER Abdiaziz Lozano Jr., MD HEMATOLOGY ORDERABLES C OM Final Result Performing Organization Address [facility] Phone Number INTERFACE SYSTEM Refer to clinic/hospital department * (ABNORMAL) CBC WITH DIFFERENTIAL (2004 5:17 AM TEST INSPECTION ENGINEER) WBC 9.4 9.4 - 34.0 K/ul INTERFACE [...] 1 <=1 INTERFACE SYSTEM 2004 5:17 AM TEST INSPECTION ENGINEER Abdiaziz Lozano Jr., MD HEMATOLOGY ORDERABLES F inal Result Performing Organization Address [facility] de Phone Number INTERFACE SYSTEM Refer to clinic/hospital department * (ABNORMAL) POC ISTAT 8 (2004 5:12 AM TEST INSPECTION ENGINEER) SPECIMEN TYPE Capillary INTERF GE SYSTEM Comment:Pulse [...] 80 mg/dL INTERFACE SYSTEM 2004 5:12 AM TEST INSPECTION ENGINEER Abdiaziz Lozano Jr., MD ABG ORDERABLES Final R esult Performing Organization Address [facility] Co de Phone Number INTERFACE SYSTEM Refer to clinic/hospital department * (ABNORMAL) BILIRUBIN, TOTAL AND DIRECT (2004 11:01 PM TEST INSPECTION ENGINEER) BILIRUBIN TOTAL 15.3(H) 0.5 - 10.5 mg/day INTERFACE SYSTEM Comment:Normals apply to bab ies less than two weeks of age. BILIRUBIN INDIRECT 15.3(H) 0.6 - 10.5 mg/dL INTERFACE SYSTEM BILIRUBIN DIRECT 0.0 0.0 - 0.6 mg/dL INTERFACE SYSTEM 2004 11:0 1 PM TEST INSPECTION ENGINEER Abdiaziz Lozano Jr., MD CHEMISTRY ORDERABLES Fi nal Result INTERFACE SYSTEM Refer to clinic/hospital department * (ABNORMAL) POC ISTAT 8 (2004 8:45 PM TEST INSPECTION ENGINEER) SPECIMEN TYPE Arterial INTERF GE SYSTEM Comment:Pulse [...] 80 mg/dL INTERFACE SYSTEM 2004 8:45 PM TEST INSPECTION ENGINEER Abdiaziz Lozano Jr., MD ABG ORDERABLES Final R esult INTERFACE SYSTEM Refer to clinic/hospital department documented in this encounter Visit Diagnoses Diagnosis Respiratory distress syndrome in (CMS/HCC)- Primary Respiratory distress syndrome in documented in this encounter
[2025-07-15 17:46] VITALS: BP 115/74; PULSE 68; RESP 14; TEMP 36.9; O2SAT 100
[2025-07-15 18:18] LABS: Add Urine Microscopic? NO
[2025-07-15 18:23] LABS: Glucose Urine UA Negative (Normal); Nitrate Urine Negative (Negative); Specific Gravity, Urine 1.004 (1.005-1.030)
[2025-07-15 18:30] LABS: Charge for UA Resulting for Rev
--- NOTE | 2025-07-15 18:45 | CTR_ITS ---
PROCEDURE INFORMATION: Exam: CT Abdomen And Pelvis With Contrast Exam date and time: 07/15/2025 8:34 PM Age: 19 years old Clinical indication: Abdominal pain; Localized; Right lower quadrant TECHNIQUE: Imaging protocol: Computed tomography of the abdomen and pelvis with contrast. Radiation optimization: All CT scans at this facility use at least one of these dose optimization techniques: automated exposure control; mA and/or kV adjustment per patient size (includes targeted exams where dose is matched to clinical indication); or iterative reconstruction. Contrast material: OMNIPAQUE 350; Contrast volume: 100 ml; Contrast route: INTRAVENOUS (IV); COMPARISON: CT abdomen pelvis w con* [id number] 11/03/2022 11:14 PM RADIATION DOSE METRICS: Total DLP (mGy-cm): 337.63 FINDINGS: Lungs: Visualized lung bases are unremarkable. Liver: Normal. No mass. Gallbladder and biliary ducts: The gallbladder is unremarkable. There is mild intrahepatic biliary ductal dilation with suggestion of beaded morphology (series 6, image 23). Pancreas: Normal. No ductal dilation. Spleen: No splenomegaly. Adrenal glands: No adrenal nodule. Kidneys and ureters: No hydronephrosis. Probable nonobstructing right renal stone, though contrast phase limits evaluation. Stomach and bowel: No bowel obstruction. No mucosal thickening. Appendix: The appendix is normal. Intraperitoneal space: No free air. No free fluid. Vasculature: Unremarkable. No abdominal aortic aneurysm. Lymph nodes: No lymphadenopathy by CT size criteria. Urinary bladder: The urinary bladder is decompressed. Reproductive: Unremarkable appearance of the uterus. There are a few small cysts within the right ovary within the physiologic size range. Bones/joints: No acute fracture. Soft tissues: Unremarkable. CT/CT abdomen pelvis w con* [id number] IMPRESSION: 1. No acute process in the abdomen or pelvis. 2. Mild intrahepatic biliary ductal dilation with possible beaded morphology. CT is limited in evaluating the biliary tree, however findings raise concern for possible underlying biliary pathology such as primary sclerosing cholangitis. Recommend further characterization with MRCP on a nonemergent basis.
--- NOTE | 2025-07-15 19:01 | ED_ITS ---
HPI - Abdominal Pain 2 General: Chief Complaint: Abdominal Pain Stated Complaint: abd pain and back pain N/V dizzyness Lightheadweak Time Seen by Provider: 07/15/25 17:53 Source: patient Mode of arrival: ambulatory Limitations: no limitations History of Present Illness: Patient is a 19-year-old female presents emergency department complaining of right lower quadrant abdominal pain beginning today. No specific exacerbating or alleviating factors noted, states she was not do anything specific when the pain started. Has been mostly constant throughout the day, and radiates to her right lower back. Still has her appendix gallbladder. She has had the pain in the past but never severe, has also had previous normal CT scan rule out appendicitis. States that she has been nauseous and vomiting, also has had decrease in appetite. No urinary symptoms, but does note mild yellow discharge that has been present for the past couple days. However states she has had the same partner, no concern for STD at this time. Does report a history of kidney stones. She had urinalysis performed at urgent care earlier today, this was reportedly normal. Notes that since discharge the pain has gotten worse. Her vitals are stable at this time, afebrile. No other symptoms noted, she is requesting something for pain and nausea. MD elicited complaint: abdominal pain Pertinent past history: constipation and kidney stones Onset (ago): hour(s) Pain Consistency: constant Location: RLQ Severity: similar to previous episodes Quality: stabbing and sharp Radiation: back Exacerbating factors: nothing Relieving factors: nothing Context: history of similar episodes Associated Symptoms: Reports nausea and vomiting; Denies bloating, change in stool character, chills, constipation, diarrhea, dysuria, fever(s) and hematochezia Related Data Home Medications ?Medication ?Instructions ?Recorded ?Confirmed valacyclovir 500 mg tablet 500 mg PO DAILY PRN Cold So res 10/08/24 07/15/25 Previous Rx's ?Medication ?Instructions ?Recorded ondansetron 4 mg disintegrating 4 mg PO TID PRN nausea and 07/15/25 tablet vomiting #30 tabs Allergies Allergy/AdvReac Type Severity Reaction Status Date / Time benzoin Allergy Severe blistering Verified 07/15/25 17:50 Review of Systems 2 General: Reports: 10 or more systems reviewed and unremarkable except in HPI and below Const: Reports: change in appetite; Denies: fever(s), chills, change in weight or diaphoresis ENMT: Denies: throat pain or hoarseness Card: Denies: chest pain, palpitations or lightheadedness Resp: Denies: dyspnea, productive cough or wheezing GI: Reports: abdominal pain, nausea and vomiting; Denies: diarrhea, constipation, bloating, change in stool character or hematochezia : Reports: vaginal discharge; Denies: flank pain, difficulty voiding, dysuria, urinary frequency, urinary urgency or vaginal bleeding Musc: Denies: neck pain or back pain Skin/Breast: Denies: rash or new lesions Neuro: Denies: headache(s) or dizziness PFSH ED 2 PFSH: Medical History No pertinent past medical history Denies diabetes, hypertension, seizures, DVT/PE PCP: Dr. Anthony LEONARD (attention deficit disorder) Diagnosed at the age of 4[address] Cruz and is on medication---does not have a therapist. Asthma Diagnosed in fifth grade and is exercise-induced. She uses her albuterol inhaler once a day Surgical History Hx of foot surgery Right foot surgery x2 screws removed-- 05/02/2022 L foot surgery x2 History of surgical removal of ganglion cyst From left wrist performed when she was in the 5th grade History of bunionectomy of left great toe Performed in 2018 History of tonsillectomy At the age of 8 History of myringotomy As a child Family History Grandmother Diabetes paternal Grandfather Diabetes paternal Family/Other Breast cancer maternal great aunt, age at diagnosis unknown Mother Diabetes Denies family history of Colon cancer Ovarian cancer Heart disease Hyperlipidemia Hypertension Uterine cancer Thyroid disease Stroke Social History Smoking and tobacco/nicotine status: current every day tobacco/nicotine user Physical Exam 2 Const: COMMON NORMALS: no acute distress, average body habitus, patient oriented x3, no limitations, healthy appearing, alert and well nourished G ENERAL APPEARANCE: cooperative and comfortable ORIENTATION/CONSCIOUSNESS: Yes awake Neck/C-Spine: COMMON NORMALS: full ROM, supple, no meningeal signs and no JVD Resp: COMMON NORMALS: normal respiratory effort, No retractions, No use of accessory muscles and clear to auscultation bilaterally AUSCULTATION: clear to auscultation bilaterally, no crackles, no rales, no rhonchi and no wheezes Cardio: COMMON NORMALS: no JVD, regular rate, regular rhythm, S1 normal heart sound present, S2 normal heart sound present, No gallops present (Cardio), No clicks present (Cardio), No murmurs present (Cardio), No rub (Cardio) and Peripheral pulses 2+ throughout RATE: regular rate RHYTHM: regular rhythm HEART SOUNDS: S1 normal heart sound present and S2 normal heart sound present PERIPHERAL PULSES: Peripheral pulses 2+ throughout GI: COMMON NORMALS: Normal to inspection, nondistended, normoactive bowel sounds present, Soft to palpation, No hepatosplenomegaly present and no masses AUSCULTATION: Yes normoactive bowel sounds PALPATION: Yes Soft to palpation, Yes Guarding due to palpation present (GI), No Rigid due to palpation and Yes No hepatosplenomegaly present RECTAL EXAM: deferred OTHER: Tender to right lower quadrant, over McBurney's point. Positive psoas testing. Extremity: COMMON NORMALS: normal to inspection and full ROM Neuro: COMMON NORMALS: patient oriented x3, moves all extremities, no focal motor deficits and no sensory deficits noted SENSORIUM/ORIENTATION: Yes alert MENINGEAL SIGNS: Yes no meningeal signs Psych: COMMON NORMALS: mental status grossly normal, cooperative and speech normal SPEECH: Yes normal speech Skin: COMMON NORMALS: no rashes or lesions noted GENERAL SKIN EXAM: no rashes or lesions noted Course 2 Vital Signs: Vital signs: Vital Signs Temperature 98.4 F 07/15/25 17:46 Pulse Rate 69 07/15/25 22:01 Respiratory Rate 16 07/15/25 22:01 Blood Pressure 108/68 07/15/25 22:01 Pulse Oximetry 100 07/15/25 22:01 Oxygen Delivery Me thod Room Air 07/15/25 21:00 MDM - Abdominal Pain Medical Decision Making Patient present with right lower quadrant pain began this morning, history of similar in the past. Positive testing of the appendix on exam, though CT abdomen pelvis rules out acute appendicitis or any other acute process. There was comment on some mild intrahepatic biliary duct dilation, of which was recommended she follow-up on an outpatient basis for possible MRCP. Her lab work however was unremarkable otherwise, no concerns here. She will be referred to gastroenterology due to her recurrence of right lower quadrant pain, and vitals and condition overall have been stable while here in the emergency department and do not suspect any acute process. Mom agrees with this plan as well and patient allowed discharge home. Lab Data 07/15/25 19:21 07/15/25 19:21 Labs/Radiology: Radiology Impressions Abdomen/Pelvis CT 07/15/25 18:45 IMPRESSION: 1. No acute process in the abdomen or pelvis. 2. Mild intrahepatic biliary ductal dilation with possible beaded morphology. CT is limited in evaluating the biliary tree, however findings raise concern for possible underlying biliary pathology such as primary sclerosing cholangitis. Recommend further characterization with MRCP on a nonemergent basis. Laboratory Results WBC 5.17 10^3/uL (4.5-13.0) 07/15/25 19:21 RBC 4.84 10^6/uL (3.85-5.65) 07/15/25 19:21 Hgb 12.10 g/dL (12.4-14.8) L 07/15/25 19:21 Hct 38.6 % (36-47) 07/15/25 19:21 MCV 79.8 fl (85-98) L 07/15/25 19:21 MCH 25.0 pg (27-33) L 07/15/25 19:21 MCHC 31.3 g/dL (30-55) 07/15/25 19:21 RDW 16.0 % (12.1-15.1) H 07/15/25 19:21 Plt Count 178 10^3/cmm (157-399) 07/15/25 19:21 MPV 12.4 fL (7.4-10.4) H 07/15/25 19:21 Neut % (Auto) 55.6 % 07/15/25 19:21 Lymph % (Auto) 35.8 % 07/15/25 19:21 [place] % (Auto) 6.6 % 07/15/25 19:21 Eos % (Auto) 1.2 % 07/15/25 19:21 Baso % (Auto) 0.6 % 07/15/25 19:21 Neut # (Auto) 2.88 10^3/uL (1.8-8.0) 07/15/25 19:21 Lymph # (Auto) 1.9 10^3/uL (1.5-6.5) 07/15/25 19:21 [place] # (Auto) 0.3 10^3/uL (0.2-0.9) 07/15/25 19:21 Eos # (Auto) 0.1 10^3/uL (0.0-0.8) 07/15/25 19:21 Baso # (Auto) 0.0 10^3/uL (0.0-0.1) 07/15/25 19:21 Nucleated RBC % (auto) 0 % 07/15/25 19:21 Nucleated RBCs # 0.0 /100WBC 07/15/25 19:21 Sodium 139 mmol/L (136-145) 07/15/25 19:21 Potassium 4.2 mmol/L (3.5-5.1) 07/15/25 19:21 Chloride 104 mmol/L (98-107) 07/15/25 19:21 Carbon Dioxide 25 mmol/L (22-29) 07/15/25 19:21 Anion Gap 14.2 (5-19) 07/15/25 19:21 BUN 8 mg/dL (6-20) 07/15/25 19:21 Creatinine 0.6 mg/dL (0.5-0.9) 07/15/25 19:21 GFR Calculation 127.5 mL/min (90-130) 07/15/25 19:21 Glucose 85 mg/dL (65-115) 07/15/25 19:21 Calculated Osmolality 286 mOsm/kg (285-295) 07/15/25 19:21 Calcium 8.8 mg/dL (8.5-10.5) 07/15/25 19:21 Total Bilirubin 0.5 mg/dL (0.15-1.2) 07/15/25 19:21 AST 14 U/L (0-32) 07/15/25 19:21 ALT 13 U/L (0-33) 07/15/25 19:21 Alkaline Phosphatase 91 U/L (35-105) 07/15/25 19:21 Total Protein 7.0 g/dL (6.6-8.7) 07/15/25 19:21 Albumin 4.3 g/dL (3.5-5.2) 07/15/25 19:21 Globulin 2.7 g/dL (1.3-4.6) 07/15/25 19:21 Lipase 21 U/L (13-60) 07/15/25 19:21 HCG, Qual Negative (Negative) 07/15/25 19:21 Urine Color Yellow (Yellow) 07/15/25 18:03 Urine Appearance Clear (CLEAR) 07/15/25 18:03 Urine pH 6.5 (5-7) 07/15/25 18:03 Ur Specific [place] 1.004 (1.005-1.030) L 07/15/25 18:03 Urine Protein Negative (Negative) 07/15/25 18:03 Urine Glucose (UA) Negative (Normal) 07/15/25 18:03 Urine Ketones Negative (Negative) 07/15/25 18:03 Urine Blood Negative (Negative) 07/15/25 18:03 Urine Nitrate Negative (Negative) 07/15/25 18:03 Urine Bilirubin Negative (Negative) 07/15/25 18:03 Urine Urobilinogen 0.2 mg/dL (Negative) 07/15/25 18:03 Ur Leukocyte Esterase Negative (Negative) 07/15/25 18:03 Amorphous Sediment Not Reportable 07/15/25 18:03 All radiology interpretation(s) finalized by discharge Discharge Plan Discharge Patient Disposition: Home Clinical Impression: Right lower quadrant abdominal pain Condition: Stable Prescriptions: New ondansetron 4 mg tablet,disintegrating 4 mg PO TID PRN (Reason: nausea and vomiting) Qty: 30 0RF No Action valacyclovir 500 mg tablet 500 mg PO DAILY PRN (Reason: Cold Sores) Discharge Orders: Discharge ED (Routine); Ordered 07/15/25 Ordered By: Mike Armas Referrals: Severino Cruz MD [Primary Care Provider, Family Practice] Patient Instructions: Abdominal Pain (ED), Patient Portal & Heather Instructions Activity Restrictions/Additional Instructions: Please follow-up with gastroenterology as has been arranged, await a call to schedule an appointment. Take [id number] Motrin and Tylenol for pain relief. You have been prescribed Zofran for nausea, take this as prescribed as well. If you have persistence of pain, intractable nausea and vomiting, or any other major worsening of symptoms or condition please return to the emergency department for reevaluation. Stand Alone Forms: Work/School Release Print Language: Frisian Coding Level of Care Code ED Blending Coordinator for Tyler Sarabia
[2025-07-15] MEDS: metoclopramide 5 mg/mL SDV 2 mL 10 MG IVP (19:42)
[2025-07-15 19:49] LABS: Hematocrit 38.6 % (36-47); Hemoglobin 12.10 g/dL (12.4-14.8); Mean Corpuscular HGB Conc 31.3 g/dL (30-55); Mean Corpuscular Hemoglobin 25.0 pg (27-33); Mean Corpuscular Volume 79.8 fl (85-98); Nucleated Red Blood Cells % 0 %; Platelet Count 178 10^3/cmm (157-399); Red Blood Count 4.84 10^6/uL (3.85-5.65); White Blood Count 5.17 10^3/uL (4.5-13.0)
[2025-07-15 20:00] LABS: HCG, Serum Qual Negative (Negative)
[2025-07-15 20:05] LABS: Alanine Aminotransferase 13 U/L (0-33); Albumin Level 4.3 g/dL (3.5-5.2); Alkaline Phosphatase 91 U/L (35-105); Anion Gap 14.2 (5-19); Aspartate Amino Transferase 14 U/L (0-32); Blood Urea Nitrogen 8 mg/dL (6-20); Calcium 8.8 mg/dL (8.5-10.5); Carbon Dioxide 25 mmol/L (22-29); Chloride 104 mmol/L (98-107); Creatinine Clr Calc Pharmacy 124.7838; Globulin 2.7 g/dL (1.3-4.6); Glucose 85 mg/dL (65-115); Lipase 21 U/L (13-60); Osmolality Calculated 286 mOsm/kg (285-295); Potassium 4.2 mmol/L (3.5-5.1); Sodium 139 mmol/L (136-145); Total Protein 7.0 g/dL (6.6-8.7)
[2025-07-15 20:11] VITALS: BP 107/70; PULSE 70; RESP 16; O2SAT 100
[2025-07-15] MEDS: iohexol 350 mg/mL 500 mL Btl (per mL) PO (20:38)
[2025-07-15] MEDS: LORazepam 1 MG/0.5 ML injection IVP (20:58)
[2025-07-15 21:00] VITALS: BP 116/74; PULSE 69; RESP 16; O2SAT 100
[2025-07-15 22:01] VITALS: BP 108/68; PULSE 69; RESP 16; O2SAT 100
--- NOTE | 2025-07-16 08:29 | DCPLANNER ---
GI Referral sent to [facility]
== END 2025-07-15 22:01 | disposition home or self-care (01) ==
PROVIDERS: Physician Assistant; Emergency Provider Physician Assistant; PCP Family Medicine
DX: R10.31 Right lower quadrant pain (principal); Z72.0 Tobacco use
CPT/HCPCS: 36415; 74177; 80053; 81000; 81003; 83690; 84703; 85025; 96361; 96374; 96375; 99285; J1885; J2060; J2765; J7040

== ENCOUNTER 2025-08-09 23:44 | Emergency (ER) | payer MEDICAID, SELFPAY ==
[2025-08-10] VITALS: BP 135/87; PULSE 88; RESP 18; TEMP 37.1; O2SAT 98; BMI 20.2
[2025-08-10 01:13] LABS: Glucose Urine UA Negative (Normal); Nitrate Urine Negative (Negative); Specific Gravity, Urine 1.007 (1.005-1.030)
[2025-08-10 01:14] LABS: Hematocrit 40.6 % (36-47); Hemoglobin 12.80 g/dL (12.4-14.8); Mean Corpuscular HGB Conc 31.5 g/dL (30-55); Mean Corpuscular Hemoglobin 25.2 pg (27-33); Mean Corpuscular Volume 80.1 fl (85-98); Nucleated Red Blood Cells % 0 %; Platelet Count 253 10^3/cmm (157-399); Red Blood Count 5.07 10^6/uL (3.85-5.65); White Blood Count 6.06 10^3/uL (4.5-13.0)
[2025-08-10 01:16] LABS: Add Urine Microscopic? YES
[2025-08-10 01:27] LABS: HCG, Serum Qual Negative (Negative)
[2025-08-10 01:32] LABS: Alanine Aminotransferase 14 U/L (0-33); Albumin Level 4.9 g/dL (3.5-5.2); Alkaline Phosphatase 88 U/L (35-105); Anion Gap 16.9 (5-19); Aspartate Amino Transferase 18 U/L (0-32); Blood Urea Nitrogen 11 mg/dL (6-20); Calcium 9.2 mg/dL (8.5-10.5); Carbon Dioxide 23 mmol/L (22-29); Chloride 100 mmol/L (98-107); Creatinine Clr Calc Pharmacy 105.4890; Globulin 2.8 g/dL (1.3-4.6); Glucose 88 mg/dL (65-115); Lipase 27 U/L (13-60); Osmolality Calculated 281 mOsm/kg (285-295); Potassium 3.9 mmol/L (3.5-5.1); Sodium 136 mmol/L (136-145); Total Protein 7.7 g/dL (6.6-8.7)
--- NOTE | 2025-08-10 03:39 | W.ED.ABDPA2 ---
HPI - Abdominal Pain General: Chief Complaint: Nausea/Vomiting/Diarrhea Stated Complaint: n/v right side abd pain Time Seen by Provider: 08/10/25 02:27 History of Present Illness: Patient is a 19-year-old female who presents with persistent nausea and right-sided abdominal pain that radiates to her back. She reports being seen in this facility 3-4 weeks ago for similar symptoms, at which time a CT scan was performed that ruled out appendicitis but showed some abnormality with her gallbladder. She was subsequently referred to a GI specialist (Dr. Quique Hampton in [place]) who ordered blood tests including mitochondrial antibodies and alpha-gal testing, which returned negative. The patient reports constant symptoms since her last visit, with severe nausea triggered by both eating and drinking. She states she has been unable to eat anything today and cannot drink without feeling nauseated. She reports occasional vomiting, with the last episode occurring approximately one week ago. The patient has experienced significant weight loss, reporting a 4-pound decrease (from 118 to 114 pounds) since Tuesday. She has tried Zofran for nausea without relief, noting that a previous anti-nausea medication caused severe anxiety requiring Ativan administration. The patient reports that chewing mint gum provides some minimal relief. She has a pending HIDA scan to evaluate gallbladder function and an MRI of the abdomen scheduled for August 13. She reports visiting [place] prior to this presentation but was told they could not help her. Related Data Home Medications ?Medication ?Instructions ?Recorded ?Confirmed Control PO 07/22/25 07/22/25 fluoxetine 10 mg capsule (Prozac) 10 mg PO DAILY 07/22/25 07/22/25 Previous Rx's ?Medication ?Instructions ?Recorded ondansetron 4 mg disintegrating 4 mg PO TID PRN nausea and 07/15/25 tablet vomiting #30 tabs metronidazole 500 mg tablet 500 mg PO BID 7 days #14 tabs 07/22/25 lansoprazole 30 mg capsule,delayed 30 mg PO DAILY #30 caps 08/10/25 release (Prevacid) Allergies Allergy/AdvReac Type Severity Reaction Status Date / Time benzoin Allergy Severe blistering Verified 07/22/25 17:11 [facility] ED PFS: Medical History No pertinent past medical history Denies diabetes, hypertension, seizures, DVT/PE PCP: Dr. Cruz ADD (attention deficit disorder) Diagnosed at the age of 4[address] Cruz and is on medication---does not have a therapist. Asthma Diagnosed in fifth grade and is exercise-induced. She uses her albuterol inhaler once a day Surgical History Hx of foot surgery Right foot surgery x2 screws removed-- 05/02/2022 L foot surgery x2 History of surgical removal of ganglion cyst From left wrist performed when she was in the 5th grade History of bunionectomy of left great toe Performed in 2018 History of tonsillectomy At the age of 8 History of myringotomy As a child Family History Grandmother Diabetes paternal Grandfather Diabetes paternal Family/Other Breast cancer maternal great aunt, age at diagnosis unknown Mother Diabetes Denies family history of Colon cancer Ovarian cancer Heart disease Hyperlipidemia Hypertension Uterine cancer Thyroid disease Stroke Social History Smoking and tobacco/nicotine status: never used tobacco/nicotine Physical Exam Const: COMMON NORMALS: no acute distress GENERAL APPEARANCE: cooperative; not ill appearing and not frail appearing HENMT: COMMON NORMALS: normocephalic, atraumatic and Normal external nose present HEAD & SCALP: normocephalic and atraumatic FACE & SINUS: normal facial exam and face symmetric NOSE: Normal external nose present Eye: COMMON NORMALS: Equal, round and reactive pupils present and EOMs intact bilaterally PUPIL: Yes Equal, round and reactive pupils present Neck/C-Spine: GENERAL: Yes trachea midline Chest: CHEST: Yes Symmetrical chest wall rise Resp: COMMON NORMALS: normal respiratory effort, No retractions, No use of accessory muscles and clear to auscultation bilaterally AUSCULTATION: clear to auscultation bilaterally Cardio: COMMON NORMALS: regular rate and regular rhythm RATE: regular rate RHYTHM: regular rhythm GI: COMMON NORMALS: Normal to inspection, nondistended, normoactive bowel sounds present PALPATION: Yes Tenderness to palpation present (GI) Details: RLQ and RUQ Extremity: COMMON NORMALS: no pedal edema Neuro: CHIRAG COMA SCALE: document GCS findings Chirag coma scale eye opening: Spontaneous Chirag coma scale verbal response: Orientated Chirag coma scale motor response: Obey commands Chirag coma scale total score: 15 SENSORY EXAM: Yes extremities (intact) Psych: COMMON NORMALS: speech normal SPEECH: Yes normal speech Skin: COMMON NORMALS: no rashes or lesions noted GENERAL SKIN EXAM: no rashes or lesions noted Course Vital Signs: Vital signs: Vital Signs Temperature 98.2 F 08/10/25 05:23 Pulse Rate 70 08/10/25 05:23 Respiratory Rate 16 08/10/25 05:23 Blood Pressure 115/71 08/10/25 05:23 Pulse Oximetry 98 08/10/25 05:23 MDM - Abdominal Pain Medical Decision Making Vital signs are stable. Reglan and Toradol ordered for this patient, but she refused. CBC BMP are normal. CRP is 3. Urinalysis is negative for infection or hematuria. She is not . She has all of her outpatient workup scheduled in the coming days. Ultrasound of the patient's gallbladder was obtained this morning. Her common bile duct is normal. Her wall is not thickened. No stones are present. She will be discharged to follow-up with her GI specialist, and obtain her outpatient HIDA and MRCP. Case management has been asked to set up HIDA scan for her. She will be treated with a PPI for the next month in case this is an atypical gastritis presentation. Lab Data 08/10/25 01:03 08/10/25 01:03 Labs/Radiology: Radiology Impressions Gallbladder Ultrasound 08/10/25 03:53 IMPRESSION: No acute findings. Laboratory Results WBC 6.06 10^3/uL (4.5-13.0) 08/10/25 01:03 RBC 5.07 10^6/uL (3.85-5.65) 08/10/25 01:03 Hgb 12.80 g/dL (12.4-14.8) 08/10/25 01:03 Hct 40.6 % (36-47) 08/10/25 01:03 MCV 80.1 fl (85-98) L 08/10/25 01:03 MCH 25.2 pg (27-33) L 08/10/25 01:03 MCHC 31.5 g/dL (30-55) 08/10/25 01:03 RDW 16.1 % (12.1-15.1) H 08/10/25 01:03 Plt Count 253 10^3/cmm (157-399) 08/10/25 01:03 MPV 11.1 fL (7.4-10.4) H 08/10/25 01:03 Neut % (Auto) 54.9 % 08/10/25 01:03 Lymph % (Auto) 36.8 % 08/10/25 01:03 [place] % (Auto) 6.3 % 08/10/25 01:03 Eos % (Auto) 1.2 % 08/10/25 01:03 Baso % (Auto) 0.8 % 08/10/25 01:03 Neut # (Auto) 3.33 10^3/uL (1.8-8.0) 08/10/25 01:03 Lymph # (Auto) 2.2 10^3/uL (1.5-6.5) 08/10/25 01:03 [place] # (Auto) 0.4 10^3/uL (0.2-0.9) 08/10/25 01:03 Eos # (Auto) 0.1 10^3/uL (0.0-0.8) 08/10/25 01:03 Baso # (Auto) 0.1 10^3/uL (0.0-0.1) 08/10/25 01:03 Nucleated RBC % (auto) 0 % 08/10/25 01:03 Nucleated RBCs # 0.0 /100WBC 08/10/25 01:03 Sodium 136 mmol/L (136-145) 08/10/25 01:03 Potassium 3.9 mmol/L (3.5-5.1) 08/10/25 01:03 Chloride 100 mmol/L (98-107) 08/10/25 01:03 Carbon Dioxide 23 mmol/L (22-29) 08/10/25 01:03 Anion Gap 16.9 (5-19) 08/10/25 01:03 BUN 11 mg/dL (6-20) 08/10/25 01:03 Creatinine 0.7 mg/dL (0.5-0.9) 08/10/25 01:03 GFR Calculation 106.7 mL/min (90-130) 08/10/25 01:03 Glucose 88 mg/dL (65-115) 08/10/25 01:03 Calculated Osmolality 281 mOsm/kg (285-295) L 08/10/25 01:03 Calcium 9.2 mg/dL (8.5-10.5) 08/10/25 01:03 Total Bilirubin 0.5 mg/dL (0.15-1.2) 08/10/25 01:03 AST 18 U/L (0-32) 08/10/25 01:03 ALT 14 U/L (0-33) 08/10/25 01:03 Alkaline Phosphatase 88 U/L (35-105) 08/10/25 01:03 C-Reactive Protein 3.0 mg/L (0.0-4.9) 08/10/25 01:03 Total Protein 7.7 g/dL (6.6-8.7) 08/10/25 01:03 Albumin 4.9 g/dL (3.5-5.2) 08/10/25 01:03 Globulin 2.8 g/dL (1.3-4.6) 08/10/25 01:03 Lipase 27 U/L (13-60) 08/10/25 01:03 HCG, Qual Negative (Negative) 08/10/25 01:03 Urine Color Yellow (Yellow) 08/10/25 00:23 Urine Appearance Clear (CLEAR) 08/10/25 00: Urine pH 6.5 (5-7) 08/10/25 00: Ur Specific [place] 1.007 (1.005-1.030) 08/10/25 00:23 Urine Protein Negative (Negative) 08/10/25 00:23 Urine Glucose (UA) Negative (Normal) 08/10/25: Urine Ketones Negative (Negative) 08/10/25 00: Urine Blood Negative (Negative) 08/10/25: Urine Nitrate Negative (Negative) 08/10/25 00: Urine Bilirubin Negative (Negative) 08/10/25: Urine Urobilinogen 0.2 mg/dL (Negative) 08/10/25 00:23 Ur Leukocyte Esterase Negative (Negative) 08/10/25 00:23 Urine RBC 0-2 /hpf (0-2) 08/10/25 00:23 Urine WBC 0-5 /hpf (0-5) 08/10/25 00:23 Ur Squamous Epith Cells 0-5 /hpf (0-5) 08/10/25 00:23 Amorphous Sediment Not Reportable 08/10/25 00:23 Urine Bacteria None seen /hpf (NONE) 08/10/25 00:23 Hyaline Casts 0-4 /lpf H 08/10/25 00:23 All radiology interpretation(s) finalized by discharge Discharge Plan Discharge Patient Disposition: Home Clinical Impression: Right upper quadrant abdominal pain Condition: Stable Prescriptions: New lansoprazole [Prevacid] 30 mg capsule,delayed release(DR/EC) 30 mg PO DAILY Qty: 30 0RF No Action fluoxetine [Prozac] 10 mg capsule 10 mg PO DAILY Control tablet PO metronidazole 500 mg tablet 500 mg PO BID 7 Days Qty: 14 0RF ondansetron 4 mg tablet,disintegrating 4 mg PO TID PRN (Reason: nausea and vomiting) Qty: 30 0RF Discharge Orders: Discharge ED (Routine); Ordered 08/10/25 Ordered By: Silvio Bartholomew Referrals: Severino Cruz MD [Primary Care Provider, Family Practice] - 1-3 days Patient Instructions: Abdominal Pain (ED), Opioid Safety, Pain Management, Patient Portal & Heather Instructions Activity Restrictions/Additional Instructions: Case management will give you a call this coming week regarding setting up your outpatient HIDA scan. Medication as directed. Return for fever, vomiting liquids, worsening pain, or other concerning symptoms. Call your family doctor as well on Tuesday. They may wish to see you as well. Print Language: Moroccan Coding Level of Care Code ED Skiagrapher for Tyler Sarabia
[2025-08-10 03:51] VITALS: BP 112/63; PULSE 78; RESP 16; O2SAT 98
--- NOTE | 2025-08-10 03:53 | USR_ITS ---
PROCEDURE INFORMATION: Exam: US Abdomen, Limited; Right Upper Quadrant Exam date and time: 08/10/2025 4:33 AM Age: 19 years old Clinical indication: Abdominal pain; Additional info: Ruq pain TECHNIQUE: Imaging protocol: Real time ultrasound of the abdomen with image documentation. Limited exam focused on the right upper quadrant. COMPARISON: US renal BI* [id number] 06/01/2024 12:57 PM FINDINGS: Liver: Normal. No masses. Patent main portal vein with normal direction of flow. Gallbladder: Normal. No gallstones. There is no gallbladder wall thickening. Biliary ducts: Normal. No stones. No dilation. Pancreas: Visualized pancreas is unremarkable. Right kidney: Normal. No mass. No hydronephrosis. US/US gall bladder [id number] IMPRESSION: No acute findings.
[2025-08-10 04:42] VITALS: BP 111/86; RESP 16; O2SAT 98
[2025-08-10 05:22] VITALS: BP 115/71; PULSE 70; RESP 16; O2SAT 98
[2025-08-10 05:23] VITALS: BP 115/71; PULSE 70; RESP 16; TEMP 36.8; O2SAT 98
--- NOTE | 2025-08-12 09:38 | DCPLANNER ---
faxed outpatient HIDA to scheduling
== END 2025-08-10 05:25 | disposition home or self-care (01) ==
PROVIDERS: Emergency Provider Emergency Medicine; PCP Family Medicine
DX: R10.11 Right upper quadrant pain (principal)
CPT/HCPCS: 36415; 76705; 80053; 81001; 83690; 84703; 85025; 86140; 99284; J7030

== ENCOUNTER 2025-08-13 07:04 | Outpatient (CLI) | payer MEDICAID, SELFPAY ==
--- NOTE | 2025-08-13 07:09 | MRR_ITS ---
PROCEDURE INFORMATION: Exam: MR Abdomen Without Contrast Exam date and time: 08/13/2025 7:16 AM Age: 19 years old Clinical indication: Other: Dilated bile duct TECHNIQUE: Imaging protocol: Magnetic resonance imaging of the abdomen without contrast. COMPARISON: CT abdomen pelvis w con* [id number] 07/15/2025 8:34 PM FINDINGS: Liver: No mass. No intrahepatic biliary ductal dilatation. Gallbladder and biliary ducts: Unremarkable gallbladder. The common bile duct measures 3.3 mm. No ductal calculi as visualized. Pancreas: Unremarkable. No ductal dilation. Spleen: Unremarkable. No splenomegaly. Adrenal glands: Unremarkable. No mass. Kidneys: Unremarkable. No solid mass. No hydronephrosis. Stomach and bowel: Visualized stomach and intestines are unremarkable. Intraperitoneal space: No free fluid. Vasculature: No abdominal aortic aneurysm. Lymph nodes: No enlarged nodes. Bones/joints: No suspicious lesions. Soft tissues: Unremarkable. MR/MR MRCP [id number] IMPRESSION: Unremarkable abdomen.
== END 2025-08-13 07:05 | disposition home or self-care (01) ==
LOC: RAD 07:04
PROVIDERS: PCP Family Medicine; Visit Provider Family Medicine
DX: K83.8 Other specified diseases of biliary tract (principal)
CPT/HCPCS: 74181

== ENCOUNTER 2025-08-17 05:00 | Outpatient (CLI) | payer MEDICAID, SELFPAY | END 2025-08-17 05:01 | disposition home or self-care (01) | LOC: SPT 09-13 09:09 | PROVIDERS: Visit Provider Student in an Organized Health Care Education/Training Program | DX: Z46.89 Encounter for fitting and adjustment of other specified devices (principal); M79.641 Pain in right hand | CPT/HCPCS: L3908 ==

== ENCOUNTER 2025-08-23 09:46 | Outpatient (CLI) | payer MEDICAID, SELFPAY ==
--- NOTE | 2025-08-23 10:15 | NM_ITS ---
WS: [id number] NUCLEAR MEDICINE HIDA SCAN WITH GALLBLADDER EJECTION FRACTION HISTORY: RUQ PAIN COMPARISON: 08/10/2025 TECHNIQUE: The patient was intravenously injected with 7.9 mCi of TC99m Mebrofenin. Immediate imaging over the right upper quadrant was followed by 5 minute image and additional images for a total of 60 minutes. Normal uptake of radiotracer throughout the liver. Activity identified in the gallbladder at 10 minutes and well distended by 60 minutes. Activity in the proximal small bowel was seen by 20 minutes. Good washout of the radiotracer from the liver by 60 minutes. The patient then drank 8 ounces of Ensure Plus. Ejection fraction at 60 minutes was 78%. Normal GB ejection fraction is 35-75%. Post fatty meal symptoms: None. NM/NM hepatobiliary w phar* [id number] IMPRESSION: 1. Normal HIDA scan. 2. Normal gallbladder ejection fraction.
== END 2025-08-23 09:47 | disposition home or self-care (01) ==
LOC: RAD 09:47
PROVIDERS: PCP Family Medicine; Visit Provider Emergency Medicine
DX: R10.11 Right upper quadrant pain (principal)
CPT/HCPCS: 78227; A9537

== ENCOUNTER → 2025-09-11 07:54 | Outpatient (BNVA) | payer MEDICAID, SELFPAY | PROVIDERS: PCP Family Medicine; Visit Provider Student in an Organized Health Care Education/Training Program | DX: M79.641 Pain in right hand (principal); M67.441 Ganglion, right hand | CPT/HCPCS: 73130 ==

== ENCOUNTER 2025-09-19 07:53 | Outpatient (CLI) | payer MEDICAID, SELFPAY ==
--- NOTE | 2025-09-19 08:00 | MR_ITS ---
WS: [id number] MRI RIGHT HAND CONTRAST. COMPARISON: Radiograph 09/11/2025 Multiplanar, multisequence imaging is performed without contrast. Marker is placed on the dorsal surface of the hand at the level of the proximal third metacarpal. No acute fractures. There is a very subtle area of intermediate signal in the proximal second metacarpal but no fracture. This could this is really only seen on the coronal STIR sequence. Normal alignment at the carpal metacarpal junction. No mass is identified. The tendons and ligaments are appropriate throughout the hand. Carpal bones are normally aligned. No fluid in the distal radial ulnar joint. Scapholunate ligament is normal. MR/MR hand RT wo con* [id number] IMPRESSION: 1. No acute fractures or soft tissue masses. 2. Very subtle intermediate signal from edema in the proximal second metacarpa l. May be from prior contusion injury. There is no dislocation or fracture.
== END 2025-09-19 07:54 | disposition home or self-care (01) ==
LOC: RAD 07:54
PROVIDERS: Visit Provider Student in an Organized Health Care Education/Training Program
DX: M67.441 Ganglion, right hand (principal); M67.442 Ganglion, left hand
CPT/HCPCS: 73218